=== PATIENT | female | born 1965 | race Caucasian/White ===

== ENCOUNTER → 2017-09-28 07:20 | Outpatient (CLI) | payer OTHER, SELFPAY ==
--- NOTE | 2017-09-28 07:26 | BI_ITS ---
MAMMOGRAPHY - BILATERAL SCREENING REASON FOR EXAM: Female, 52 years old. Routine annual screening examination. PERTINENT HISTORY: Aunt with breast cancer. Remote right stereotactic breast biopsy and excisional biopsy. TECHNIQUE: Digital bilateral breast mason (3D mammographic acquisition) in the CC and MLO projections. 2-D mediolateral oblique (MLO) and craniocaudad (CC) views of both breasts were obtained. CAD: Full Field Digital Mammography with Computer Added Detection was performed. COMPARISON: Comparison is made with prior study dated June 20, 2014 and November 28, 2011. FINDINGS: Breast Composition: There are scattered areas of fibroglandular density. There are no dominant masses or suspicious calcifications. No other significant abnormalities are identified. There has been no significant change since the prior study. BI/SCREENING MAMM (CAD), BILAT IMPRESSION: Stable bilateral screening mammogram. Yearly follow-up mammogram recommended. (A) ASSESSMENT CATEGORY: BIRADS Category 1: Negative. A letter regarding these results will be sent to the patient by the facility within 30 days. Approximately 10% of breast cancers are not detected by mammography. A normal mammogram should not delay biopsy of a clinically suspicious abnormality. [id number] Electronically Signed: Adeel Valdez MD at 9:10 EDT Tel [phone], Service support ,
== END ==
PROVIDERS: Family Provider Family Medicine; PCP Family Medicine; Visit Provider Obstetrics & Gynecology Gynecology
DX: Z12.31 Encounter for screening mammogram for malignant neoplasm of breast (principal)
CPT/HCPCS: 77063; 77067

== ENCOUNTER → 2017-12-07 06:56 | Outpatient (CLI) | payer OTHER, SELFPAY ==
--- NOTE | 2017-12-07 12:39 | PFTCOMP_ITS ---
COMPLETE PULMONARY FUNCTION TEST INTERPRETATION Brief HPI: Patient is a 52 year old female, currently under the care of myself, who presents to [facility] for complete pulmonary function tests secondary to diagnosis of asthma. Respiratory therapist reports good effort and reproducible results. Interpretation: Forced expiration spirometry shows no large airways obstructive ventilatory defect with an FEV1 of 111% predicted. There is no significant bronchodilator response by ATS criteria. Spirograms are of good quality and plateau slowly, indicating slowly emptying areas of the lungs. The respiratory flow volume loop shows a normal pattern. Lung volumes by body plethysmography show an elevated total lung capacity at 6.14 L, 130% predicted. All other lung volumes are increased symmetrically. Diffusion capacity by carbon monoxide is normal at 81% predicted. The airway resistance is normal. No previous pulmonary function tests were available for review. Impression: These pulmonary function tests are grossly within normal limits, but do show hyperinflation, which may be a physiologic variant.
== END ==
PROVIDERS: Family Provider Family Medicine; PCP Family Medicine; Visit Provider Internal Medicine Critical Care Medicine
DX: J45.40 Moderate persistent asthma, uncomplicated (principal)
CPT/HCPCS: 94060; 94726; 94729

== ENCOUNTER → 2018-05-03 08:20 | Outpatient (CLI) | payer OTHER, SELFPAY ==
[2018-05-02 15:02] VITALS: BMI 43.0
[2018-05-03 09:47] LABS: Absolute Neutrophil Count 3.2 X10^3/uL (2.0-7.7); Basophil# 0.09 X10^3/uL; Basophil% 1.6 % (0-1); Eosinophil# 0.25 X10^3/uL; Eosinophils% 4.6 % (0-5); Hematocrit 42.4 % (37-47); Hemoglobin 13.8 g/dl (12.0-15.0); Lymphocyte % 29.3 % (19-41); Mean Corp Hgb Conc 32.5 g/gl (32-36); Mean Corpuscular Hgb 29.2 pg (27.0-32.0); Mean Corpuscular Volume 89.8 fL (81-99); Monocyte# 0.34 X10^3/uL; Monocyte% 6.2 % (0-10); Neutrophil # 3.17 X10^3/uL (2.7-7.7); Neutrophil % 58.1 % (47-70); Platelet Count 333 K/mm3 (150-450); RBC Distribution Width CV 12.9 % (11.6-14.6); RBC Distribution Width SD 41.9 fl (35.1-43.9); Red Blood Count 4.72 M/mm3 (4.2-5.4); White Blood Count 5.5 K/mm3 (4.4-11.0)
[2018-05-03 09:56] LABS: POSITIVE COUNT NO; POSITIVE DIFFERENTIAL NO; POSITIVE MORPHOLOGY NO
[2018-05-03 10:22] LABS: Anion Gap 9 (5-15); BUN 16 mg/dL (7-18); Calcium,Total 8.8 mg/dL (8.5-10.1); Chloride 105 mmol/L (98-107); Cholesterol 214 mg/dL (200); Creatinine, Serum 0.89 mg/dL (0.55-1.02); EST Glomerular Filtration Rate 70 mL/min (>60); Est Glom Filt Rate - Afr Amer 85 mL/min (>60); Glucose 104 mg/dL (74-106); High Density Lipoprotein 41 mg/dL; Sodium Level 142 mmol/L (136-145); T4 Free Direct 1.02 ng/dL (0.76-1.46); Thyroid Stim Hormone (TSH) 1.87 uIU/mL (0.358-3.74); Triglycerides 168 mg/dL; Very Low Density Lipoprotein 34 mg/dL (5-40)
== END ==
PROVIDERS: Family Provider Internal Medicine; PCP Internal Medicine; Referring Provider Internal Medicine; Visit Provider Internal Medicine
DX: E03.9 Hypothyroidism, unspecified (principal); E78.5 Hyperlipidemia, unspecified
CPT/HCPCS: 36415; 80048; 80061; 84439; 84443; 85025

== ENCOUNTER → 2018-10-03 08:09 | Outpatient (CLI) | payer OTHER, SELFPAY ==
[2018-05-02 15:02] VITALS: BMI 43.0
--- NOTE | 2018-10-03 08:21 | RAD_ITS ---
STUDY: X-RAY CHEST REASON FOR EXAM: Female, 53 years old. Intermittent chest pain x2 weeks, asthma TECHNIQUE: PA and lateral views of the chest. COMPARISON: None. FINDINGS: The lungs are clear and expanded. There is no demonstrated pleural abnormality. Normal size heart. Normal mediastinum and cary. Normal visualized pulmonary arteries. There are calcified plaques of the aortic arch. There is a mild midthoracic dextroscoliosis. There is diffuse endplate spondylosis of the thoracic spine. Normal visualized ribs, clavicles, and shoulders. There is no demonstrated abnormality of the visualized soft tissue structures of the upper abdomen. RAD/Chest PA and Lateral IMPRESSION: Calcified plaques of the aortic arch. Mild thoracic dextroscoliosis. Mild diffuse endplate spondylosis of the thoracic spine. Electronically Signed: Best Harrington MD at 16:50 EDT , Service support ,
[2018-10-03 09:54] LABS: Absolute Lymphocyte Count 1.63 X10^3/ul (0.83-4.51); Absolute Neutrophil Count 2.7 X10^3/uL (2.0-7.7); Basophil# 0.05 X10^3/uL; Eosinophil# 0.21 X10^3/uL; Eosinophils% 4.3 % (0-5); Hematocrit 43.8 % (37-47); Hemoglobin 14.6 g/dl (12.0-15.0); Lymphocyte # 1.63 X10^3/ul (4.0); Mean Corp Hgb Conc 33.3 g/gl (32-36); Mean Corpuscular Hgb 28.9 pg (27.0-32.0); Mean Corpuscular Volume 86.7 fL (81-99); Mean Platelet Vol. 10.7 fl (6.2-12.0); Monocyte# 0.35 X10^3/uL; Monocyte% 7.1 % (0-10); Neutrophil # 2.69 X10^3/uL (2.7-7.7); Neutrophil % 54.4 % (47-70); Platelet Count 311 K/mm3 (150-450); RBC Distribution Width CV 12.9 % (11.6-14.6); RBC Distribution Width SD 40.3 fl (35.1-43.9); Red Blood Count 5.05 M/mm3 (4.2-5.4); White Blood Count 4.9 K/mm3 (4.4-11.0)
[2018-10-03 09:59] LABS: POSITIVE COUNT NO; POSITIVE DIFFERENTIAL NO; POSITIVE MORPHOLOGY NO
[2018-10-03 10:12] LABS: AST(SGOT) 26 U/L (15-37); Alanine Aminotransfer ALT/SGPT 52 U/L (13-56); Albumin, Serum 3.8 g/dL (3.2-5.0); Alkaline Phosphatase 49 U/L (45-117); Anion Gap 6 (5-15); BUN 12 mg/dL (7-18); BUN/Creat Ratio 12.3 RATIO (10-20); Chloride 104 mmol/L (98-107); Cholesterol 218 mg/dL (200); Creatinine, Serum 0.98 mg/dL (0.55-1.02); EST Glomerular Filtration Rate 63 mL/min (>60); Est Glom Filt Rate - Afr Amer 76 mL/min (>60); Globulin 3.5 g/dL (2.2-4.2); Glucose 107 mg/dL (74-106); High Density Lipoprotein 49 mg/dL; Potassium 3.9 mmol/L (3.5-5.1); Protein, Total 7.3 g/dL (6.4-8.2); Sodium Level 141 mmol/L (136-145); T4 Free Direct 0.95 ng/dL (0.76-1.46); Thyroid Stim Hormone (TSH) 2.91 uIU/mL (0.358-3.74); Triglycerides 173 mg/dL; Very Low Density Lipoprotein 35 mg/dL (5-40)
== END ==
PROVIDERS: Family Provider Internal Medicine; PCP Internal Medicine; Referring Provider Internal Medicine Cardiovascular Disease; Visit Provider Internal Medicine Cardiovascular Disease
DX: R07.9 Chest pain, unspecified (principal); R06.09 Other forms of dyspnea; E03.9 Hypothyroidism, unspecified
CPT/HCPCS: 36415; 71046; 80048; 80061; 80076; 84439; 84443; 84484; 85025

== ENCOUNTER → 2018-10-03 12:52 | Outpatient (CLI) | payer OTHER, SELFPAY ==
[2018-05-02 15:02] VITALS: BMI 43.0
--- NOTE | 2018-10-03 12:53 | ECHOD_ITS ---
Reason For Study: Chest Pain Procedure This was a 2D Doppler, Color Flow transthoracic echocardiogram. Exam performed in department. Left Ventricle Normal size and thickness. The estimated ejection fraction is 75 %. Normal diastology for age. No regional wall motion abnormalities noted. Right Ventricle Normal size and thickness. Normal systolic function. Atria Normal left atrium. Normal right atrium. Normal atrial septum. Mitral Valve The mitral valve is structurally normal. No prolapse or stenosis seen. Tricuspid Valve Normal tricuspid valve. Trivial tricuspid valve insufficiency. Right ventricular systolic pressure estimated to be 18 mmHg. Aortic Valve Normal aortic valve. Trisinus/trileaflet aortic valve. Pulmonic Valve Normal pulmonic valve. Trivial pulmonic valve insufficiency. Great Vessels Normal aortic root. Normal arch. Normal inferior vena cava. Inferior vena cava collapse with sniff. Pericardium/Pleural No pericardial effusion. MMode/2D Measurements & Calculations LVIDd: 3.9 cm IVSd: 0.98 cm Ao root diam: 2.7 cm LVIDs: 2.0 cm LVPWd: 1.0 cm RVDd: 3.0 cm FS: 49.0 % LAV(MOD-bp): 42.6 ml LVAd ap4: 27.0 cm2 SV(MOD-sp4): 53.5 ml LAV(MOD-bp) Indexed: 20.2 ml/m2 EDV(MOD-sp4): 77.2 ml LAV(MOD-sp2): 36.9 ml EDV(sp4-el): 80.4 ml LAV(MOD-sp4): 49.7 ml LVAs ap4: 13.0 cm2 ESV(MOD-sp4): 23.8 ml ESV(sp4-el): 23.1 ml EF(MOD-sp4): 69.2 % EF(sp4-el): 71.3 % SV(sp4-el): 57.3 ml LA A4 area: 18.2 cm2 LA dimension(2D): 3.8 cm RA A4 area: 9.8 cm2 Doppler Measurements & Calculations MV E max edison: 80.2 cm/sec Lat Peak E' Edison: 10.6 cm/sec Med Peak E' Edison: 9.6 cm/sec MV A max edison: 70.9 cm/sec E/E' lat: 7.6 E/E' med: 8.4 MV E/A: 1.1 Ao V2 max: 151.4 cm/sec LV V1 max: 138.4 cm/sec PA V2 max: 137.7 cm/sec Ao max P.2 mmHg LV V1 max P.7 mmHg Ao V2 mean: 107.2 cm/sec Ao mean P.0 mmHg Ao V2 VTI: 33.1 cm TR max edison: 179.2 cm/sec TR max P.8 mmHg Interpretation Summary The estimated ejection fraction is 75 %. Normal diastology for age. Trivial tricuspid valve insufficiency. Right ventricular systolic pressure estimated to be 18 mmHg. There is no comparison study available. Ordering Physician: Tyrell Beal Referring Physician: Parris Espino Performed By: Bere Weinberg, MOLINA, RVT
== END ==
PROVIDERS: Family Provider Internal Medicine; PCP Internal Medicine; Referring Provider Internal Medicine Cardiovascular Disease; Visit Provider Internal Medicine Cardiovascular Disease
DX: R07.9 Chest pain, unspecified (principal); R06.09 Other forms of dyspnea; R10.13 Epigastric pain; M54.9 Dorsalgia, unspecified
CPT/HCPCS: 93306

== ENCOUNTER → 2018-10-04 13:33 | Outpatient (CLI) | payer OTHER, SELFPAY ==
[2018-05-02 15:02] VITALS: BMI 43.0
--- NOTE | 2018-10-04 13:35 | STEWCON_ITS ---
Reason For Study: CHEST PAIN, CASTRO Stress Results Protocol: Stress Echocardiogram Maximum Predicted HR: 165 bpm Target HR: 140 bpm % Maximum Predicted HR: 91 % Heart Stage Duration Rate BP Comment (mm:ss) (bpm) BASELINE 61 118/744CC DILUTED DEFINITY USED LOGAN PROTOCOL- STAGE 1 3:00 102 124/80 LOGAN PROTOCOL- STAGE 2 3:00 127 132/84SL SOB LOGAN PROTOCOL- STAGE 3 2:00 150 / SOB CP 1-06/24 FOR SHORT TIME POST SRESS, LASTED APPROX. 7 MIN RECOVERY 80 118/74THEN SUBSIDED WITH SITTING UPRIGHT Stress Duration: 8:00 mm:ss Maximum Stress HR: 150 bpm Baseline Echocardiogram Findings The estimated ejection fraction is 65 %. Stress Echo Wall motion Data Resting WM Intermediate WM Stress WM Resting Wall Motion Wall Motion Stress No regional wall motion No regional wall motion abnormalities noted. abnormalities noted. EKG Data The baseline ECG displays normal sinus rhythm. The patient exercised according to the regular Logan protocol for a total duration of 8:00. The maximum heart rate attained was 150 beats per minute. This was 90% of maximum predicted heart rate. The patient exercised into stage 3 of the Logan protocol. During stress, there were no ST or T wave changes noted to suggest ischemia. No clinical angina was noted. Interpretation Summary The estimated ejection fraction is 65 %. Normal, adequate, treadmill echocardiogram. Negative for ischemia by EKG and echocardiographic criteria. No anginal symptoms noted. Rare PVCs noted. Appropriate blood pressure response to exercise. Average exercise capacity for age. Test terminated due to the attainment of target heart rate and dyspnea. Final LVEF is 75%. Decreased sensitivity due to poor echo windows requiring Definity enhancing agent. No complications. The study was technically difficult. Contrast injection was performed. Ordering Physician: Tyrell Beal Referring Physician: Tyrell Beal Performed By: Marjorie Baum, RDCS, RVT
== END ==
PROVIDERS: Family Provider Internal Medicine; PCP Internal Medicine; Referring Provider Internal Medicine Cardiovascular Disease; Visit Provider Internal Medicine Cardiovascular Disease
DX: R07.9 Chest pain, unspecified (principal); R06.09 Other forms of dyspnea; M54.9 Dorsalgia, unspecified; R10.13 Epigastric pain; G47.33 Obstructive sleep apnea (adult) (pediatric); E78.5 Hyperlipidemia, unspecified; J45.909 Unspecified asthma, uncomplicated
CPT/HCPCS: 93017; 93350; Q9957; A4216; C8928

== ENCOUNTER → 2018-10-05 07:53 | Outpatient (CLI) | payer OTHER, SELFPAY ==
[2018-05-02 15:02] VITALS: BMI 43.0
--- NOTE | 2018-10-05 07:55 | US_ITS ---
STUDY: ABDOMINAL ULTRASOUND - RIGHT UPPER QUADRANT REASON FOR VISIT: Female, 53 years old. 2 week history of epigastric pain. History of gastroesophageal reflux. TECHNIQUE: Ultrasound evaluation of the right upper quadrant was performed with real-time and static tran-scale imaging. TECHNICAL QUALITY: Adequate. COMPARISON: Comparison is made with prior examination dated April 29, 2015. FINDINGS: Liver: The liver is slightly enlarged and measures 19.1 cm. There is increased echogenicity consistent with fatty infiltration. The bile ducts are within normal limits. There is hepatic color flow. The direction of portal flow is hepatopetal. Once again, 2 cysts are seen in the right lobe of the liver. The larger measures 2.5 size by 2.4 cm x 1.6 cm. Gallbladder: Normal distended gallbladder. The gallbladder wall measures 2.8 mm. There is a negative sonographic Prince's sign. There is no pericholecystic fluid. There is a solitary echogenic gallstone within the gallbladder. This measures 1.6 cm x 1.9 cm. Common Bile Duct (C.B.D.): The common bile duct measures 4.8 mm. Pancreas: Normal size of the head, body and tail of the pancreas. There is increased echogenicity of the pancreas. There is no demonstrated pancreatic mass or cyst. Right Kidney: Normal size of the right kidney. The right kidney measures 11.0 cm x 5.1 cm x 5.6 cm. Normal renal cortex. The right cortex measures 1.8 cm. There is a 1.6 cm x 1.3 cm x 1.6 cm right renal cyst. There is no right hydronephrosis. US/Gallbladder IMPRESSION: Hepatomegaly and fatty infiltration of the liver. Hepatic cysts. Solitary gallstone. Electronically Signed: Adeel Valdez, at 14:53 EDT , Service support ,
== END ==
PROVIDERS: Family Provider Internal Medicine; PCP Internal Medicine; Referring Provider Internal Medicine Cardiovascular Disease; Visit Provider Internal Medicine Cardiovascular Disease
DX: K21.9 Gastro-esophageal reflux disease without esophagitis (principal); R10.13 Epigastric pain; M54.9 Dorsalgia, unspecified
CPT/HCPCS: 76705

== ENCOUNTER → 2018-10-17 07:25 | Outpatient (CLI) | payer OTHER, SELFPAY ==
[2018-10-04 15:43] VITALS: BMI 43.4
--- NOTE | 2018-10-17 07:26 | CT_ITS ---
HISTORY: EPIGASTRIC PAIN RADIATING THROUGH TO BACK--MASS VS HIATAL HERNIAINTERMITTENT RLQ PAINSURG RIGHT BREAST LUMPECTOMY-BENIGN,DTamp;C TECHNIQUE: Helically acquired images were obtained of the chest following the intravenous administration of 100CC ml of Isovue 300 Iodinated contrast. as per pulmonary angiogram protocol with 2D MIP reconstructions. A radiation dose optimization technique was used for this scan. COMPARISON: CT scan of the abdomen and pelvis performed the same time. FINDINGS: # of images incl. paperwork: 877 Lungs are clear pleural-parenchymal nodule on the major fissure on the right measures 11 x 5 mm. No effusions. Within the thoracic spinescoliosis and multilevel degenerative disc disease Vertebral body height is normal. Facets are well aligned. No rib lesions are perceived. Heart is not enlarged. Thoracic aorta elongated with atherosclerotic plaque. No aneurysms, stenoses, dissections, nor occlusions. No axillary or mediastinal adenopathy. No pulmonary emboli. Hepatic steatosis. Within the liver there are at least 4 hypodense lesions. Largest of these, within the lateral segment left hepatic lobe, anteriorly, within a subcapsular position, measures 17 mm, and has a central density of 9 Hounsfield units. These all likely represent benign cysts. Heterogeneous enhancement of the spleen is likely just due to the normal arterial phase of imaging. Visualized portions of the pancreas, and adrenal glands are normal. The stomach is decompressed. CT/Chest WITH Contrast IMPRESSION: No pulmonary embolism, aortic aneurysm, or aortic dissection. Hepatic steatosis Individualized dose optimization techniques were used for this CT. at 0895 Reported and signed by: Michele Love MD Electronically Signed: Michele Love MD at 22:44 EDT Tel , Service support ,
--- NOTE | 2018-10-17 07:26 | CT_ITS ---
HISTORY: EPIGASTRIC PAIN RADIATING THROUGH TO BACK--MASS VS HIATAL HERNIAINTERMITTENT RLQ PAINSURG RIGHT BREAST LUMPECTOMY-BENIGN,DTamp;C TECHNIQUE: Helically acquired images were obtained of the abdomen and pelvis following the intravenous administration of 100CC ml of Isovue 300 Iodinated contrast. 2D reformats. No oral contrast was administered. A radiation dose optimization technique was used for this scan. COMPARISON: None FINDINGS: # of images incl. paperwork: 455 LUNG BASES: Clear. CT abdomen: Degenerative disc disease at the L4-L5 and L5-S1 levels. Facet arthropathy at the lower lumbar spine. The gallbladder remains. Hepatic steatosis. There are 4 hypodense lesions throughout the liver. The largest of these is anteriorly within the lateral segment of the left hepatic lobe, within a subcapsular position. It measures 19 mm, has fairly well-defined margins which are somewhat lobular. It has a central density of 13 Hounsfield units. The spleen, pancreas, and adrenal glands, are normal. The kidneys are normal. The aorta is normal. CT pelvis: No ascites is present. The uterus and ovaries are not pathologically enlarged. The appendix is normal. Series 3 image 80. The bladder is is decompressed. Diverticulosis within the sigmoid colon without acute diverticulitis. CT/Abdomen/Pelvis WITH Contrast IMPRESSION: No acute disease perceived. Hepatic steatosis. 4 hypodense lesions within the liver, likely benign cysts. No hiatal hernia. No biliary ductal dilatation. No hydronephrosis. Degenerative disc disease and facet arthropathy within the lumbar spine Individualized dose optimization techniques were used for this CT. at 8155 Reported and signed by: Michele Love MD Electronically Signed: Michele Love MD at 23:14 EDT Tel , Service support ,
== END ==
PROVIDERS: Family Provider Internal Medicine; PCP Internal Medicine; Referring Provider Internal Medicine Cardiovascular Disease; Visit Provider Internal Medicine Cardiovascular Disease
DX: R07.9 Chest pain, unspecified (principal); M54.9 Dorsalgia, unspecified; R10.13 Epigastric pain; R10.31 Right lower quadrant pain
CPT/HCPCS: 71260; 74177; Q9967

== ENCOUNTER → 2019-02-14 07:17 | Outpatient (CLI) | payer OTHER, SELFPAY ==
[2019-01-19 14:39] VITALS: BMI 44.1
--- NOTE | 2019-02-14 07:19 | BI_ITS ---
MAMMOGRAPHY - BILATERAL SCREENING REASON FOR EXAM: Female, 53 years old. Routine annual screening examination. PERTINENT HISTORY: Aunt with breast cancer. Remote right Sterotactic and excisional breast biopsies. TECHNIQUE: Digital bilateral breast adrianne (3D mammographic acquisition) in the CC and MLO projections. 2-D mediolateral oblique (MLO) and craniocaudad (CC) views of both breasts were obtained. CAD: Full Field Digital Mammography with Computer Added Detection was performed. COMPARISON: Comparison is made with prior study dated September 28, 2017 at [facility] 2014. FINDINGS: Breast Composition: There are scattered areas of fibroglandular density. There are no dominant masses or suspicious calcifications. There is a 4 mm well-defined nodule in the upper lateral aspect of the right breast. This may represent either a small cyst or small lymph node. Correlation with ultrasound is recommended. No other significant abnormalities are identified. There has been no significant change since the prior study. BI/SCREEN MAMM (CAD) W/ADRIANNE BILAT IMPRESSION: 4 mm well-defined nodule in the upper lateral aspect of the right breast as described. Correlation with ultrasound is recommended. ASSESSMENT CATEGORY: BIRADS Category 0: Incomplete. Need additional imaging evaluation. A letter regarding these results will be sent to the patient by the facility within 30 days. Approximately 10% of breast cancers are not detected by mammography. A normal mammogram should not delay biopsy of a clinically suspicious abnormality. [id number] Electronically Signed: Adeel Valdez, at 9:17 EDT , Service support ,
== END ==
PROVIDERS: Family Provider Internal Medicine; PCP Internal Medicine; Referring Provider Obstetrics & Gynecology Gynecology; Visit Provider Obstetrics & Gynecology Gynecology
DX: Z12.31 Encounter for screening mammogram for malignant neoplasm of breast (principal); N63.10 Unspecified lump in the right breast, unspecified quadrant
CPT/HCPCS: 77063; 77067

== ENCOUNTER → 2019-02-18 07:49 | Outpatient (CLI) | payer OTHER, SELFPAY ==
[2019-01-19 14:39] VITALS: BMI 44.1
--- NOTE | 2019-02-18 07:52 | US_ITS ---
STUDY: ULTRASOUND BREAST - RIGHT REASON FOR EXAM: Female, 53 years old. Previous right breast were obtained on 02/14/2019 TECHNIQUE: Axial and longitudinal images of the RIGHT breast were performed with a high resolution ultrasound transducer. COMPARISON: None. FINDINGS: RIGHT Breast: There is a lesion in the superior medial quadrant. The lesion measures 5 cm in size. Clock notation: 9: o'clock position. Distance from nipple: 460 cm. Posterior Enhancement: Yes Posterior Shadowing: No Margins: Sharp Echogenicity: Decreased This lesion appears to have an internal septation through a cyst. US/Breast Limited Unilateral IMPRESSION: The questionable density in the lateral right breast most likely density small benign cyst ASSESSMENT CATEGORY: BIRADS: 2 Electronically Signed: Juan Stacie, at 15:53 EDT Tel , Service support ,
== END ==
PROVIDERS: Family Provider Internal Medicine; PCP Internal Medicine; Referring Provider Obstetrics & Gynecology Gynecology; Visit Provider Obstetrics & Gynecology Gynecology
DX: N63.10 Unspecified lump in the right breast, unspecified quadrant (principal)
CPT/HCPCS: 76642

== ENCOUNTER → 2019-04-19 16:11 | Outpatient (CLI) | payer OTHER, SELFPAY ==
[2019-04-19 09:04] VITALS: BMI 44.1
--- NOTE | 2019-04-19 16:13 | RAD_ITS ---
STUDY: X-RAY - PELVIS AND LEFT HIP REASON FOR EXAM: Female, 53 years old. Chronic left hip pain TECHNIQUE: 3 views of the pelvis and hip. COMPARISON: 03/24/17. FINDINGS: No acute fracture, dislocation or osseous destruction. Moderate bilateral left greater than right hip joint space narrowing. No significant productive changes. No significant soft tissue swelling. IMPRESSION: No acute fracture or dislocation. Moderate bilateral hip arthrosis left slightly greater than right. Electronically Signed: Tobin Cartagena, at 17:45 EST Tel , Service support , RAD/Hip uni 4+ views with Pelvis
== END ==
PROVIDERS: Family Provider Internal Medicine; PCP Internal Medicine; Referring Provider Nurse Practitioner Family; Visit Provider Nurse Practitioner Family
DX: M16.0 Bilateral primary osteoarthritis of hip (principal); G89.29 Other chronic pain
CPT/HCPCS: 73503

== ENCOUNTER → 2019-07-31 14:09 | Outpatient (CLI) | payer OTHER, SELFPAY ==
[2019-07-31 13:32] VITALS: BMI 44.6
--- NOTE | 2019-07-31 14:12 | RAD_ITS ---
STUDY: X-RAY - LUMBAR SPINE REASON FOR EXAM: Female, 53 years old. BACK PAIN TECHNIQUE: 3 view(s) of the lumbar spine were obtained. COMPARISON: None FINDINGS: Normal lumbar lordosis. There is no substantial scoliosis. There is a normal alignment of the vertebrae. Normal vertebral bodies and endplates. Moderate degree of disc space narrowing at the L4-L5 level as well as a marked degree of disc space narrowing and disc degeneration at the L5-S1 level. Facet joint osteoarthritis. The soft tissue structures are unremarkable. RAD/Lumbar Spine 2 or 3 Views IMPRESSION: Degenerative changes of the spine, as detailed above. Electronically Signed: Adeel Valdez, at 15:03 EDT , Service support ,
== END ==
PROVIDERS: PCP Internal Medicine; Referring Provider Internal Medicine; Visit Provider Internal Medicine
DX: M54.9 Dorsalgia, unspecified (principal)
CPT/HCPCS: 72100

== ENCOUNTER → 2019-10-30 15:40 | Outpatient (CLI) | payer OTHER, SELFPAY ==
[2019-10-30 15:11] VITALS: BMI 44.1
[2019-10-30 16:55] LABS: Absolute Neutrophil Count 3.9 X10^3/uL (2.0-7.7); Basophil# 0.06 X10^3/uL; Eosinophil# 0.27 X10^3/uL; Eosinophils% 4.4 % (0-5); Hematocrit 41.2 % (37-47); Hemoglobin 13.2 g/dL (12.0-15.0); Lymphocyte % 25.8 % (19-41); Mean Corpuscular Hgb 28.9 pg (27.0-32.0); Mean Corpuscular Volume 90.2 fL (81-99); Mean Platelet Vol. 10.4 fl (6.2-12.0); Monocyte# 0.38 X10^3/uL; Monocyte% 6.1 % (0-10); NRBC Flagged by Analyzer 0 % (0-5); Neutrophil # 3.87 X10^3/uL (2.7-7.7); Neutrophil % 62.4 % (47-70); Platelet Count 304 K/mm3 (150-450); RBC Distribution Width CV 12.5 % (11.6-14.6); RBC Distribution Width SD 41.1 fl (35.1-43.9); Red Blood Count 4.57 M/mm3 (4.2-5.4); White Blood Count 6.2 K/mm3 (4.4-11.0)
[2019-10-30 17:14] LABS: ALB/GLOB Ratio 1.1 RATIO (0.9-2.4); AST(SGOT) 16 U/L (15-37); Alanine Aminotransfer ALT/SGPT 31 U/L (13-56); Albumin, Serum 3.8 g/dL (3.2-5.0); Alkaline Phosphatase 53 U/L (45-117); Anion Gap 8 (5-15); BUN 17 mg/dL (7-18); BUN/Creat Ratio 20.6 RATIO (10-20); Chloride 103 mmol/L (98-107); Cholesterol 153 mg/dL (200); Creatinine, Serum 0.82 mg/dL (0.55-1.02); EST Glomerular Filtration Rate 76 mL/min (>60); Est Glom Filt Rate - Afr Amer 92 mL/min (>60); Globulin 3.6 g/dL (2.2-4.2); Glucose 109 mg/dL (74-106); High Density Lipoprotein 47 mg/dL; Protein, Total 7.4 g/dL (6.4-8.2); Sodium Level 140 mmol/L (136-145); Thyroid Stim Hormone (TSH) 2.11 uIU/mL (0.358-3.74); Triglycerides 165 mg/dL; Very Low Density Lipoprotein 33 mg/dL (5-40)
== END ==
PROVIDERS: PCP Internal Medicine; Referring Provider Internal Medicine; Visit Provider Internal Medicine
DX: J45.909 Unspecified asthma, uncomplicated (principal); E03.9 Hypothyroidism, unspecified; E78.5 Hyperlipidemia, unspecified
CPT/HCPCS: 36415; 80053; 80061; 84443; 85025

== ENCOUNTER 2020-01-08 09:00 | Outpatient (RCR) | payer OTHER, SELFPAY ==
[2019-11-11 07:56] VITALS: BMI 44.1
--- NOTE | 2019-12-05 08:22 | HP.PTEVAL ---
Patient's Visit Information IRIS EDWARDS is a 54 year old F referred to Physical Therapy by Dr. Danilo Platt DO with a diagnosis of Low Back Pain. Date of Evaluation: 12/05/19 Physical Therapist: Christiana San DPT - Visit Plan Frequency: 2x /Week Duration: 4 Weeks Plan: Aquatics- focus on core stregth/stabilization and diminishing dural s/s - Subjective Patient reports that left hip pain started last fall- and now she can't walk- had bursitits and had in injection and that is better- now she has pain in the left buttocks that radiates down the left leg to the ankle. Has a hard time walking- more DDD in her spine vs hip OA. Back pain is new- she use to be very active but is not able to do that anymore. Pain is located along the belt line in the middle then radites to the foot. Reports spasms and its hard to step onto the left leg. Sleep: disturbed- is now sleeping on her back with a pillow under her knees. Worst: 12/22 Agg: driving, sitting Eases: moving around and Meloxicam, Tylenol migraine (stacked). Best: 05/24. Work: sitting nurse phone. Slight N/T in the left leg which is just starting. No loss or change in bowel or bladder. X-rays which showed DDD in the spine but no MRI. Feels the leg and back pain is getting worse. No trauma to report. PMHX/Meds: no changes since Dr. Guajardo's office. Had her last injection in her hip 4-5 weeks ago. - Objective Posture: FH, RS, increased kyphosis- can not correct with verbal or visual cues. Gait: antalgic- decreased stance on the left LE with hip drop bilaterally- vaulting over the left LE. HR/TR: able with UE A. SLS: right: 15 sec with UE a from wall- unable to SLS only weight shift on the left and reports significant weakness and pain. Sensation: WNl to gross touch bilaterally. Reflex: patellar: diminished bilaterally. ROM: Lumbar: hands to ankle reports feels good to stretch Extn: neutral and all motion from upper lumbar, Rotation: diminished by 50% bilateral rotation left increases pain more than right. SB: diminished by 25% pain when SB left. Right LE: WNL Left: IR/ER: diminished by 50% with pain. ankle/knee: WNL. Strength: Core: poor, Hip: Left: 4-/5 throughout Right: 4/5 throughout Knee: 5/5 bilaterally ankle: 5/5 bilaterally. Special Test: Dural signs: positive on the left, JONAH: positive on the right, Scour: positive on the right, Extn vs Flexion Bias: negative. Palpation: tender along paraspinals in the lumber, into the left gluts, greater troch - Goals Goal 1:: Patient will be I with HEP and progression Goal Time Frame: 4-6 Weeks Goal 2:: Patient will ambulate >300 feet with a normalized gait pattern Goal Time Frame: 4-6 Weeks Goal 3:: Patient will SLS for 15 sec on the left LE with UE A Goal Time Frame: 4-6 Weeks Goal 4:: Patient will report no s/s down her left Le Goal Time Frame: 4-6 Weeks - Rehabilitation Potential Physical Therapy Diagnosis: Patient presents with hypomobility- she has decreased ROM,strength, flex and muscular endurance leading to poor posture and increased radiating pain. Rehabilitation Potential: Fair - Anticipated Interventions Patient/Client Instruction: Educate patient on: Benefits of Fitness Program Therapeutic Exercise to Include: Strength training, Endurance training, Balance training, Body mechanics, Postural training, Flexibilty training, Gait and locomotor training, Neuromotor development, In an aquatic setting, Dynamic Lumbar Stabilization, Scapular Strength/Stabilization For the Purpose of:: To improve muscle performance and motor function Thank you for the opportunity to evaluate your patient. For Medicare and Medicare HMO plans, please review the plan of care and approve it. It will need to be FAXED BACK to us at [phone] for Medicare purposes. For Medicare only, by signing this I certify the plan of care. Please let me know if there are questions or concerns regarding this plan of care. Physician Signature: Date:
--- NOTE | 2020-01-08 09:28 | HP.PTDCSUM ---
It has been my pleasure to treat IRIS EDWARDS referred by Dr. Danilo Platt DO, with the diagnosis of Low Back Pain for a total of 8 visit(s). Discharge Date: 01/08/20 Please see the following information for a summary of their discharge status. Subjective: Went well in water. I do feel better.Has to be careful with what she does. Will keep core strong wtih HEP. Bands and core work will get done every otherday. No f/u with Dr. Kuhn. Had shot in bursa. Would like to manage this at home now. LLE Pain Intensity (Out of 10): 1 Lumbar Spine Pain Intensity (Out of 10): 1 % Improvement: 85 Objective/Function: Wallks with wide DAVIE and much increased hip pain if we decrease DAVIE. Steps with R only due to pain. + JONAH and FADDIR L hip. LB AROM WFL but ext gives tightness anterior L hip Goal 1:: Patient will be I with HEP and progression Goal Progress: Goal Met Goal 2:: Patient will ambulate >300 feet with a normalized gait pattern Goal Progress: Progressing Goal 3:: Patient will SLS for 15 sec on the left LE with UE A Goal Progress: 4 seconds Goal 4:: Patient will report no s/s down her left Le Goal Progress: Goal Met Plan: d/c to HEP, pt choice. If there are questions or concerns regarding this patient's physical therapy, please feel free to call me at [phone]. Thank you for the referral of this patient. Sincerely, Jhon Owen, DPT, OCS, CSCS
== END 2020-01-08 19:00 | disposition home or self-care (01) ==
LOC: PT 09:00
PROVIDERS: PCP Internal Medicine; Referring Provider Orthopaedic Surgery; Visit Provider Orthopaedic Surgery
DX: M47.816 Spondylosis without myelopathy or radiculopathy, lumbar region (principal); M51.36 Other intervertebral disc degeneration, lumbar region; M70.62 Trochanteric bursitis, left hip; Y93.9 Activity, unspecified
CPT/HCPCS: 97110; 97113; 97162; 97164

== ENCOUNTER → 2020-03-12 14:27 | Outpatient (CLI) | payer OTHER, SELFPAY ==
[2020-03-11 17:08] VITALS: BMI 45.1
[2020-03-12 15:15] LABS: Erythrocyte Sedimentation Rate 8 mm/hr (0-30)
[2020-03-12 15:25] LABS: CRP < 2.90 mg/L (0.0-3.0); Rheumatoid Factor < 10.0 IU/mL (<15)
[2020-03-16 17:44] LABS: ANTINUCLEAR ANTIBODIES DIRECT Negative (Negative)
== END ==
PROVIDERS: PCP Internal Medicine; Referring Provider Nurse Practitioner Family; Visit Provider Nurse Practitioner Family
DX: M25.50 Pain in unspecified joint (principal)
CPT/HCPCS: 36415; 85652; 86038; 86140; 86225; 86235; 86431

== ENCOUNTER → 2020-03-18 16:19 | Outpatient (CLI) | payer OTHER, SELFPAY ==
[2020-03-11 17:08] VITALS: BMI 45.1
--- NOTE | 2020-03-18 16:20 | MRI_ITS ---
STUDY: MRI LUMBAR SPINE WITHOUT CONTRAST REASON FOR EXAM: Female, 54 years old. ddd, low back pain into L hip x 1 yr, no known injury TECHNIQUE: Standardized fat and water weighted pulse sequences were obtained in the sagittal and axial planes. COMPARISON: None FINDINGS: T12-L1: Normal endplates. Normal disc height, hydration and morphology. Normal bilateral facet joints. Normal central canal and bilateral lateral recesses. Normal bilateral intervertebral neural foramina. Normal lumbar lordosis. There is no substantial scoliosis. Normal conus medullaris that terminates at T12-L1 L1-2: Normal endplates. Normal disc height, hydration and morphology. Normal bilateral facet joints. Normal central canal and bilateral lateral recesses. Normal bilateral intervertebral neural foramina. L2-3: Normal endplates. Normal disc height, hydration and morphology. Normal bilateral facet joints. Normal central canal and bilateral lateral recesses. Normal bilateral intervertebral neural foramina. L3-4: Normal endplates. Normal disc height, desiccation and small left foraminal disc protrusion.. Normal bilateral facet joints. Normal central canal and bilateral lateral recesses. Mild left neuroforaminal encroachment.. L4-5: Normal endplates. Normal disc height, desiccation and normal morphology. Mild facet arthropathy and thickening of ligamenta flava.. Normal central canal and bilateral lateral recesses. Mild bilateral neuroforaminal encroachment.. L5-S1: Normal endplates. Normal disc height, desiccation and mild annular bulge.. Facet arthropathy and thickening of ligamenta flava.. Normal central canal and bilateral lateral recesses. Moderate bilateral neuroforaminal stenosis. Normal visualized sacral ala. Normal visualized paraspinous soft tissue structures. MRI/Spine Lumbar (Routine) IMPRESSION: No acute fracture or other significant bony pathology. Mild left neuroforaminal stenosis at L3-4 secondary to small left foraminal disc Spinal stenosis at L4-5 and more pronounced at L5-S1 secondary to mild annular bulge facet arthropathy and thickening of ligamenta flava protrusion. Electronically Signed: Juan Akers MD at 17:58 EST , Service support ,
== END ==
PROVIDERS: PCP Internal Medicine; Referring Provider Nurse Practitioner Family; Visit Provider Nurse Practitioner Family
DX: M51.36 Other intervertebral disc degeneration, lumbar region (principal); M47.26 Other spondylosis with radiculopathy, lumbar region; M48.07 Spinal stenosis, lumbosacral region; G89.29 Other chronic pain
CPT/HCPCS: 72148

== ENCOUNTER → 2020-06-12 08:18 | Outpatient (CLI) | payer OTHER, SELFPAY ==
[2020-05-22 11:09] VITALS: BMI 42.5
[2020-06-04 16:47] VITALS: BMI 44.1
--- NOTE | 2020-06-12 08:20 | BI_ITS ---
MAMMOGRAPHY - BILATERAL SCREENING REASON FOR EXAM: Female, 54 years old. Routine annual screening examination. PERTINENT HISTORY: Non-contributory. TECHNIQUE: Digital bilateral breast adrianne (3D mammographic acquisition) in the CC and MLO projections. 2-D mediolateral oblique (MLO) and craniocaudad (CC) views of both breasts were obtained. CAD: Full Field Digital Mammography with Computer Added Detection was performed. COMPARISON: Comparison is made with prior study 02/14/2019 and 09/28/2017. FINDINGS: Breast Composition: There are scattered areas of fibroglandular density. There are no dominant masses or suspicious calcifications. This is 6.1 mm well-defined nodule in the upper lateral aspect of the right breast. This has increased slightly in size as compared to prior study. A repeat sonogram is recommended for further evaluation. No other significant abnormalities are identified. BI/SCRN MAMM (CAD)W/ADRIANNE BILAT IMPRESSION: Slight increase in size of the previously seen nodule in the upper lateral aspect of the right breast as described. Correlation with ultrasound is recommended. ASSESSMENT CATEGORY: BIRADS Category 0: Incomplete. Need additional imaging evaluation. A letter regarding these results will be sent to the patient by the facility within 30 days. Approximately 10% of breast cancers are not detected by mammography. A normal mammogram should not delay biopsy of a clinically suspicious abnormality. [id number] Electronically Signed: Adeel Valdez MD at 9:01 EST , Service support ,
== END ==
PROVIDERS: PCP Internal Medicine; Referring Provider Obstetrics & Gynecology Gynecology; Visit Provider Obstetrics & Gynecology Gynecology
DX: Z12.31 Encounter for screening mammogram for malignant neoplasm of breast (principal); N63.10 Unspecified lump in the right breast, unspecified quadrant
CPT/HCPCS: 77063; 77067

== ENCOUNTER → 2020-06-16 08:05 | Outpatient (CLI) | payer OTHER, SELFPAY ==
[2020-06-04 16:47] VITALS: BMI 44.1
--- NOTE | 2020-06-16 08:07 | US_ITS ---
STUDY: ULTRASOUND BREAST - RIGHT REASON FOR EXAM: Female, 54 years old. Abnormal screening mammogram. TECHNIQUE: Axial and longitudinal images of the RIGHT breast were performed with a high resolution ultrasound transducer. # OF IMAGES: 29 COMPARISON: Comparison is made with prior mammogram dated 06/12/2020. Comparison is also made with prior sonogram of the right breast dated 02/18/2019. FINDINGS: RIGHT Breast: There is a 6 mm x 6 mm x 4 mm cyst with septation at the 9 o''clock position of the breast at 4 cm from the nipple. This is unchanged. US/Breast Limited Unilateral IMPRESSION: Stable cyst with septation at the 9 o''clock position breast 4 cm from the nipple. ASSESSMENT CATEGORY: BIRADS Category 2: Benign. A letter regarding these results will be sent to the patient by the facility within 30 days. Electronically Signed: Adeel Valdez MD at 8:53 EST , Service support ,
== END ==
PROVIDERS: PCP Internal Medicine; Referring Provider Obstetrics & Gynecology Gynecology; Visit Provider Obstetrics & Gynecology Gynecology
DX: N60.01 Solitary cyst of right breast (principal)
CPT/HCPCS: 76642

== ENCOUNTER → 2020-11-05 13:29 | Outpatient (CLI) | payer OTHER, SELFPAY ==
[2020-10-26 10:49] VITALS: BMI 41.3
--- NOTE | 2020-11-05 13:35 | CT_ITS ---
STUDY: CT LEFTLOWER EXTREMITY WITHOUT CONTRAST REASON FOR EXAM: Female, [address] templating for left MARY RADIATION DOSAGE (If Supplied By Facility): CTDIvol = ( 14.07 ) mGy, DLP = ( 814.28 ) mGycm TECHNIQUE: Thin section transaxial imaging of the ankle was obtained, with sagittal and coronal reconstructed images. Individualized dose optimization techniques were used for this CT. COMPARISON: None. Hip findings: Severe narrowing of the right hip with bone on bone contact and moderate size subchondral cystic changes in addition to cortical osteophyte spurring and reactive sclerosis. A small loose body is seen at the medial inferior aspect of the left hip joint. The right hip joint is normal. Normal superior and inferior pubic rami. Normal pubic symphysis. Normal ischial tuberosity. Normal origin of the hamstring tendons. Normal visualized iliac wing, sacroiliac joint, and sacral ala. Diffuse colonic diverticulosis noted. The remaining internal structures are unremarkable. Knee findings: Mild to moderate narrowing is seen in the medial compartments in both knees. Normal proximal tibiofibular articulation. No fracture is seen. No osteochondral defect is seen. The quadriceps and patellar tendons are grossly intact. Normal patellofemoral articulations. No significant joint effusion is visualized. The soft tissues are unremarkable. CT/Extremity Lower without Contra IMPRESSION: 1. Severe DJD of the left hip Electronically Signed: Homero Jolley MD at 23:56 EDT , Service support ,
== END ==
PROVIDERS: PCP Internal Medicine; Referring Provider Orthopaedic Surgery; Visit Provider Orthopaedic Surgery
DX: M16.12 Unilateral primary osteoarthritis, left hip (principal)
CPT/HCPCS: 73700

== ENCOUNTER 2020-12-08 12:23 | Observation (INO) | payer OTHER, SELFPAY ==
[2020-10-26 10:49] VITALS: BMI 41.3
[2020-11-26 08:54] LABS: Absolute Lymphocyte Count 1.55 X10^3/uL (0.83-4.51); Basophil# 0.07 X10^3/uL; Basophil% 1.1 % (0-1); Eosinophil# 0.39 X10^3/uL; Hematocrit 41.3 % (37-47); Hemoglobin 13.2 g/dL (12.0-15.0); Lymphocyte # 1.55 X10^3/ul (0.83-4.51); Mean Corpuscular Hgb 29.1 pg (27.0-32.0); Mean Platelet Vol. 9.7 fl (6.2-12.0); Monocyte% 6.2 % (0-10); NRBC Flagged by Analyzer 0 % (0-5); Neutrophil # 4.04 X10^3/uL (2.7-7.7); Neutrophil % 62.4 % (47-70); Platelet Count 307 K/mm3 (150-450); RBC Distribution Width CV 12.8 % (11.6-14.6); Red Blood Count 4.54 M/mm3 (4.2-5.4); White Blood Count 6.5 K/mm3 (4.4-11.0)
[2020-11-26 09:13] LABS: Prothrombin Time (Protime)PT. 12.7 SECONDS (11.7-14.9)
[2020-11-26 09:14] LABS: Partial Thromboplast Time 29.5 Seconds (24.1-36.2)
[2020-11-26 09:38] LABS: Anion Gap 8 (5-15); BUN 19 mg/dL (7-18); BUN/Creat Ratio 19.1 RATIO (10-20); Calcium,Total 9.6 mg/dL (8.5-10.1); Chloride 102 mmol/L (98-107); Creatinine, Serum 0.99 mg/dL (0.55-1.02); EST Glomerular Filtration Rate 61 mL/min (>60); Est Glom Filt Rate - Afr Amer 74 mL/min (>60); Glucose 85 mg/dL (74-106); Magnesium 2.2 mg/dL (1.6-2.6); Potassium 4.1 mmol/L (3.5-5.1); Sodium Level 139 mmol/L (136-145)
[2020-11-26 09:46] LABS: ALB/GLOB Ratio 1.1 RATIO (0.9-2.4); AST(SGOT) 15 U/L (15-37); Alanine Aminotransfer ALT/SGPT 24 U/L (13-56); Albumin, Serum 3.8 g/dL (3.2-5.0); Alkaline Phosphatase 57 U/L (45-117); Anion Gap 7 (5-15); BUN 19 mg/dL (7-18); BUN/Creat Ratio 19.3 RATIO (10-20); Calcium,Total 8.9 mg/dL (8.5-10.1); Chloride 102 mmol/L (98-107); Cholesterol 142 mg/dL (200); Creatinine, Serum 0.98 mg/dL (0.55-1.02); EST Glomerular Filtration Rate 62 mL/min (>60); Est Glom Filt Rate - Afr Amer 75 mL/min (>60); Globulin 3.4 g/dL (2.2-4.2); Glucose 86 mg/dL (74-106); High Density Lipoprotein 50 mg/dL; Potassium 4.1 mmol/L (3.5-5.1); Protein, Total 7.2 g/dL (6.4-8.2); Sodium Level 139 mmol/L (136-145); Triglycerides 160 mg/dL; Very Low Density Lipoprotein 32 mg/dL (5-40)
[2020-11-27 08:13] LABS: Fructosamine 206 umol/L (0-285)
[2020-12-03 16:34] VITALS: BMI 42.5
[2020-12-08] VITALS (15 sets, daily range): BP systolic 76–133; BP diastolic 44–80; PULSE 51–70; RESP 16–18; TEMP 36.1–37.1; O2SAT 93–100; BMI 42.3
[2020-12-08] MEDS: Lactated Ringers 1,000 ML 100 ML IV (06:43)
[2020-12-08] MEDS: Celecoxib 200 MG Capsule 400 MG PO (06:43)
[2020-12-08] MEDS: Gabapentin 600 MG Tablet PO (06:44)
[2020-12-08] MEDS: Scopolamine 1mg/72hr Patch 1 PATCH TD (06:44)
[2020-12-08] MEDS: Lactated Ringers 1,000 ML 999 ML IV (06:44)
[2020-12-08] MEDS: Acetaminophen 500 MG Tablet 1000 MG PO ×3 (06:45→21:42)
--- NOTE | 2020-12-08 07:15 | PCM.HP.BLA ---
History and Physical Date of Admission: 12/08/20 Date of Service: 10/26/20 MR#:[id number]:[id number]: TANISHA BENTON [facility] #:[id number]:[id number] Provider:Dr. Danilo Platt DOAge/Sex: 55/F Location:[facility]:Signed Intake Vital Signs 10/26/20 10:49 Height 5 ft 3 in Weight: 233 lb BMI 41.3 Intake Visit Reasons: FOLLOW UP Chief Complaint: Acute on chronic left hip pain Allergies sulfamethoxazole [From Bactrim] Allergy (Severe, Verified 09/01/20 09:17) Hives trimethoprim [From Bactrim] Allergy (Severe, Verified 09/01/20 09:17) Hives [facility] Medical History (Updated 09/02/20 @ 13:24 by Tanisha Benton) Anxiety and depression Arthritis of left hip Asthma Chest pain Diverticulosis Dyspnea on exertion Epigastric pain GERD (gastroesophageal reflux disease) Hay fever Hyperlipidemia Hypothyroidism Mid back pain Obstructive sleep apnea Surgical History History of ankle surgery (~2012) History of colonoscopy (~2013) History of D&C (~1994) History of lumpectomy Family History Father Diabetes Hypertension Hyperlipidemia Glaucoma Mother Diabetes Hyperlipidemia PVC's (premature ventricular contractions) Bilateral osteoarthritis resulting from hip dysplasia Thyroid disorder Brother TIA (transient ischemic attack) After hiking and dehydration. No cerebrovascular disease Brother Hypertension Anxiety and depression Aunt Breast cancer Grandmother CVA (cerebral vascular accident) Cancer melanoma ovarian cancer Social History (Updated 09/07/20 @ 13:[address] Danilo Platt DO) household members: spouse housing: house alcohol intake: current alcohol intake frequency: holidays/special occasions only Alcohol type: wine substance use type: does not use what type of physical activity do you participate in: walking seatbelt use: always do you feel safe at home: Yes HPI FOLLOW UP Details: Parts of this documentation were recorded by a scribe, this documentation accurately reflects the service provided and the decisions made by me, Dr. Danilo Platt DO 10/26/20 0752. TANISHA BENTON is a 55 year old F here today for follow up of left hip osteoarthritis and to sign surgical consent. To recall her most recent left hip injection was on 08/13/[address] Thomas and she was educated that since she had that injection we could not operate for the next 3 months due to increased risk of infection. Today she is still having groin pain that is circumferential around the left hip. Today her pain in the office is a 7/10. She is taking meloxicam and extra strength Tylenol, which helps. She is still continuing to work on weight loss. Concerned about mobility after surgery, might have to go to some type of rehab facility/TCU. She takes a baby aspirin everyday ROS Const Denies chills and Denies fever(s) Card Denies dyspnea Resp Denies dyspnea GI Denies nausea and Denies vomiting Musc Reports abnormal gait, Reports arthralgias, Reports back pain, Reports limited range of motion, Reports radiating pain into limb and Reports stiffness Skin/Breast Denies rash Neuro Yes abnormal gait Ortho Exam General General: Yes no acute distress Neurologic: Yes alert and Yes oriented x3 Psychologic: Yes reasonable and appropriate Left Hip Skin/Wound: No Ecchymosis and No Erythema Hip: Present tender to palpate -; Absent eccymosis or erythema Homans Sign: No HIP: 15 degrees internal rotation, 20 degrees external with lateral hip pain with resisted abduction, 1/4 pedal pulses, neurovascularly intact, no hip, knee, or ankle weakness. Able to plantar flex and dorsiflex. Supplemental Info 09/01/20 xray left hip: Severe left hip degenerative change 04/19/2019 x-ray left hip: Mild spurring of the acetabulum mild joint space narrowing 07/31/2019 x-ray lumbar spine:Moderate disc space narrowing and spondylosis of L4-L5And L5-S1 with facet arthrosis Coding Level of Care Code Off vis,est,level 3 Diagnoses Primary osteoarthritis of left hip M16.12 Adult BMI 40.0-44.9 kg/sq m Z68.41 Lumbar spondylosis M47.816 Lumbar degenerative disc disease M51.36 Lumbar radiculitis M54.16 Morbid obesity due to excess calories E66.01 Arthritis of left hip M16.12 Assessment and Plan Assessment and Plan (1) Primary osteoarthritis of left hip: (2) Adult BMI 40.0-44.9 kg/sq m: Plan - Dr. Danilo Platt, DO: Discussed that she is still having continued pains and she would like to proceed with a left hip total arthroplasty. Will need to get a CT scan preop. Will need medical clearance from PCP, Dr. Espino. Patient states that she will fax FMLA into the office. She will continue to lose weight. Educated to stop meloxicam and baby aspirin 7 days prior to surgery and 2 weeks after while she is on a blood thinner. She will be on hip precautions post op. Discussed that PT will be started right away and she will need to be cleared on stairs due to where her bathroom is in her house. She will be evaluated after surgery to see is she can go home same day or if she needs to stay overnight. Risks, benefits and alternatives of surgery reviewed including but not limited to bleeding, infection, nerve, artery and/or tissue damage, fracture, VTE, leg length discrepancy, dislocation, need for hip precautions, continued pain due to her known back problems. Discussed the expected preop, intraop and postop course. She will be tentatively scheduled for 12/01/20. She will continue with her weight loss. She will follow up post op as needed or sooner if pain, swelling, numbness or associated symptoms, or concerns develop. All questions answered. Patient in agreement of plan. (3) Lumbar spondylosis: (4) Lumbar degenerative disc disease: (5) Lumbar radiculitis: (6) Morbid obesity due to excess calories: Status: Chronic (7) Arthritis of left hip: Status: Chronic 10/26/20 1140<Electronically signed by Danilo Platt DO>Date Danilo Platt DO 10/26/20 1217<Electronically signed by Melba PASTRANA>Cosigner Signature:Date (if applicable)Melba Caro I have re-examined the patient. There are no clinical changes since date of exam
--- NOTE | 2020-12-08 07:30 | FEM_PTH ---
PATIENT: IRIS BENTON LOC: [facility] U#:[id number] AGE/SX: 55/F ROOM: ME315 RE12/08/[address]: Dr. Danilo Platt DO : 1965 BED: 1 DIS: 12/09/2020 SPEC #: [id number] RECD: 12/08/20 11:06 STATUS: MARCK MCBRIDE #: [id number] DRE: 12/08/20 07:[address]: Danlio Platt DEPT: SURGICAL PATHOLOGY RECD BY: Regine Broderick ENTERED: 12/08/20 11:40 SP TYPE: FEM HEAD OTHR DR: Dr. Parris Espino MD Tissues: Femoral region, NOS Procedures: Decalcification bone/plaque Surgery Specimen Level V HEADER OPERATION: Total hip replacement robotic arm assist PRE-OP DIAGNOSIS: Primary osteoarthritis of left hip TISSUE SUBMITTED: Left hip bone and soft tissue MICROSCOPIC DIAGNOSIS Left hip bone and soft tissue, total hip replacement/resection: Femoral head with degenerative osteoarthritic changes. A fragment of bone and cartilage, loose body. YURIDIA:edi 12/11/2020 MICROSCOPIC DESCRIPTION Slides are reviewed. GROSS DESCRIPTION Received is one container labeled with the patient's name and designated left hip bone and soft tissue. The specimen consists of a deformed femoral head measuring 4.5 x 4.5 x 3.5 cm. The portion of femoral neck measures 0.5 cm in length. Also present in the container are detached pieces of bone measuring in aggregate 3.5 x 2.5 x 1 cm. Also present in the container is a piece of bone consistent with loose body measuring 1.5 x 1 x 0.5 cm. The articular surface displays prominent osteophyte formation, eburnation and bone erosion. Bag Bleacher sections are submitted in two cassettes after decalcification as follows: 1 ? loose body and detached pieces of bone, 2 ? femoral head. / YURIDIA:edi 12/08/20 TC:5 CPT: 81469, 66659
[2020-12-08] MEDS: Cefazolin 2 GM in 0.9% Normal Saline 100 ML IV (07:45)
[2020-12-08] MEDS: dexAMETHasone 10 MG/ML Vial IV (07:55)
[2020-12-08 08:06] LABS: Bedside Glucose 90 mg/dL (70-110)
--- NOTE | 2020-12-08 10:15 | RAD_ITS ---
STUDY: X-RAY - PELVIS AND LEFT HIP REASON FOR EXAM: Postoperative evaluation of left hip arthroplasty. TECHNIQUE: 2 views of the pelvis and hip. COMPARISON: Radiographs 09/01/2020. FINDINGS: There is postoperative gas in the soft tissues and overlying skin ruth. Normal bilateral superior and inferior pubic rami. Normal pubic symphysis. Normal bilateral ischial tuberosities. There is a left hip arthroplasty without evidence of complication. RAD/Hip Min 2 Views (Portable) IMPRESSION: Uncomplicated left hip arthroplasty. Electronically Signed: Lion Parikh MD at 11:10 EDT Tel , Service support ,
--- NOTE | 2020-12-08 10:21 | OP.PCM_ITS ---
Report of Operation Date of Procedure: 12/08/20 Description of Surgical Findings:: Preoperative diagnosis: Left hip DJD Postoperative diagnosis: Same Procedure: CT-guided Makoplasty assisted left total hip arthroplasty Implants: Zuleyma Accolade II stem size 2, 132 degree neck angle -4 neck length 48 mm Trident II acetabular shell with 30 mm cancellous screw 36 mm ceramic head Anesthesia: Spinal EBL: 175 cc Complications: None Condition: Stable to PACU Indication for procedure: This is a 55 y/o female who has had long-standing arthrosis of the hip who has failed conservative treatment and wished to undergo total hip arthroplasty. We did discuss operative versus nonoperative intervention including risks of bleeding, infection , nerve artery tissue damage, need for further surgery, fracture, leg length discrepancy dislocation blood clot and need for postoperative physical therapy and postoperative expectations. An informed consent was signed. Procedure: Patient was met in the preoperative holding area once again the operative extremity was identified by both patient and physician and was marked. Patient was met by anesthesia . Anesthesia was started. patient was then positioned in the lateral decubitus position on a well-padded pegboard with an axillary roll. All bony prominences were checked and padded. The patient was prepped and draped in the usual sterile fashion. A timeout was called to ensure the proper patient procedure and extremity were being contemplated. Anatomic l andmarks were palpated and marked for a standard posterior lateral approach. Prior to this the ASIS was palpated and 3 fingerbreadths proximal to this 3 pins were placed at a 45 degree angle into the iliac crest with good purchase, stab incisions were made with a 15 blade into the skin prior to placement. The Makoplasty array was then secured. A 10 blade scalpel was used to make a posterior incision through the skin and subcutaneous tissue. retractors were used and electrocautery was used to maintain meticulous hemostasis and dissect full-thickness flaps until the gluteal fascia was reached. The gluteal fascia was incised in line with the gluteal fibers. The bursal tissue was then freed from the underside and a Charnley retractor was placed. The femoral trochanteric checkpoint was placed and leg length was assessed using the trochanteric checkpoint and an EKG lead that was placed on the knee prior to prepping the leg .the fat pad was then elevated off of the external rotators wi th electrocautery and the external rotators were dissected off of the greater trochanter including the piriformis and were tagged with #1 Ethibond for later repair. The joint capsule opened with posterior trapdoor technique. The hip was surgically dislocated. The measurement on the preoperative CT from the top of the lesser trochanter to the femoral neck cut was marked Hohmann was placed around the lesser trochanter. A neck cutting guide was used to brandi the neck with a Bovie and an oscillating saw was used complete the femoral neck cut. The femoral head was then removed and sized. We then turned our attention to the acetabulum. A Bovie was used to make a perforation in the anterior joint capsule and a Portillo retractor was placed this was repeated in the 6 o'clock position and a wide amanda was placed there. With a long handled knife the labral and pulvinar tissue were removed. We then registered the acetabulum with the pointing array and confirmed our landmarks. Once the socket was thoroughly prepared and labral tissue and pulvinar was removed we single reamed with the robotic arm. We then used the robotic arm to position the acetabular implant and impacted it into place under robotic guidance. We then proceeded to place a posterior superior screw by drilling first measuring and inserting the screw. We then inserted a trial liner. And turned our attention back to the femur at this point a femoral elevator was used. As well as a pointed wide Hohmann around the lesser trochanter and a Hohmann to help retract the gluteus medius. A box chisel was used to remove excess lateral neck followed by a canal finder and a lateralizing reamer. This was followed by sequential broaches. Attention was made of the version within the canal based on preoperative templating. Once the final broach was seated we then trialed reduced the hip it was determined that a 132 degree neck angle with a -4 neck length was the appropriate size. We then checked stability with shuck testing as well as flexion and internal rotation. then proceeded with hip extension and checked leg lengths at the knees and heels as well as with the trochanteric checkpoint and knee EKG lead. At this point trials were removed. A liner was inserted to the cup. The femoral stem was inserted. We re-trialed and then proceeded to impact the femoral head onto the Carlos taper. We then surgically reduce the hip check stability again and leg lengths and were satisfied. Betadine rinse was allowed to sit for 5 minutes while everyone changed their gloves. Thorough irrigation was performed. Followed by closure of the external rotators with #2 FiberWire followed by closure of gluteal fascia with #1 Ethibond. 0 Vicryl fat stitches and 2-0 Vicryl subcutaneous stitches and ruth in the skin. A pulls were placed in the pin sites over the iliac crest with Xeroform 4 x 4 and OpSite. dressing was applied to incisional area with Mepilex Ag and an abduction pillow was placed. Patient tolerated the procedure well there was no intraoperative complications all counts were correct and the patient was brought back to the PACU in stable condition.
[2020-12-08] MEDS: Lactated Ringers 1,000 ML 125 ML IV ×2 (10:36→14:31)
[2020-12-08] MEDS: Cefazolin 1 GM/50 ML BAG IV ×2 (10:55→18:16)
--- NOTE | 2020-12-08 11:25 | PCM.DC ---
Discharge Instructions Activity Weight Bearing Status: Weight bearing as tolerated Keep extremity elevated above heart level: Operative Extremity Dressing / Incision Call your doctor if you observe: Shortness of breath and Chest pain Change Dressing in: 2 days Follow Up Care Please Follow Up With: Danilo Platt DO When: 2weeks Test Results: Test results from this visit will be discussed in further detail at your follow-up appointment, if applicable. Discharge Plan Admission Attending Provider: Danilo Platt Primary Care Provider: Parris Espino Instructions Patient Instructions: ED Chest Pain, Noncardiac Discharge Orders/Prescriptions Prescriptions: No Action omeprazole 20 mg capsule,delayed release(DR/EC) 20 mg PO DAILY RF: 0 multivitamin [Multiple Vitamins] Tablet 1 tab PO DAILY RF: 0 escitalopram oxalate 10 mg tablet 10 mg PO DAILY RF: 0 aspirin [Adult Aspirin Regimen] 81 mg tablet,delayed release (DR/EC) 81 mg PO DAILY RF: 0 Pulmicort Flexhaler 180 mcg/actuation aerosol powdr breath activated 1 - 2 inh INHALATION .COMPLEX Qty: 1 RF: 6 ProAir HFA 90 mcg/actuation HFA aerosol inhaler 2 inh INHALATION Q4H PRN (Reason: shortness of breath or wheezing) Qty: 8.5 RF: 6 rosuvastatin 5 mg tablet 5 mg PO DAILY Qty: 90 RF: 3 levothyroxine 50 mcg tablet 50 mcg PO DAILY Qty: 90 RF: 3 (DME) Handicap Parking Placard See Rx Instructions .Route .MEDSUPPLY Qty: 1 RF: 0 meloxicam 15 mg tablet 15 mg PO DAILY PRN (Reason: pain) Qty: 90 RF: 1 cephalexin [Keflex] 750 mg capsule 750 mg PO BID Qty: 20 RF: 0 Referrals / Follow Up: Parris Espino MD [Primary Care Provider] - Disposition Disposition (needs filled in before D/C Order can be placed): Home, Self Care
[2020-12-08] MEDS: oxyCODONE 5 MG Tablet PO ×2 (14:30→18:19)
[2020-12-08] MEDS: Senna/Docusate Sodium 1 Tablet 2 TABLET PO (21:42)
[2020-12-08] MEDS: Atorvastatin Calcium 10 MG Tablet PO (21:45)
[2020-12-09] MEDS: Cefazolin 1 GM/50 ML BAG IV (02:31)
[2020-12-09 02:32] VITALS: BP 109/38; PULSE 58; RESP 18; TEMP 37.1; O2SAT 97
[2020-12-09] MEDS: oxyCODONE 5 MG Tablet PO ×2 (02:56→12:03)
[2020-12-09 05:40] VITALS: BP 106/68; PULSE 65; RESP 18; TEMP 37.1; O2SAT 95
[2020-12-09] MEDS: Levothyroxine 50 MCG Tablet PO (05:43)
[2020-12-09] MEDS: APIXABAN 2.5 MG TABLET PO (05:43)
[2020-12-09] MEDS: Acetaminophen 500 MG Tablet 1000 MG PO (05:43)
[2020-12-09 05:45] LABS: Mean Corp Hgb Conc 32.4 g/dL (32-36); Mean Corpuscular Hgb 29.6 pg (27.0-32.0); Mean Corpuscular Volume 91.4 fL (81-99); Mean Platelet Vol. 10.3 fl (6.2-12.0); Platelet Count 265 K/mm3 (150-450); RBC Distribution Width SD 43.1 fl (35.1-43.9); Red Blood Count 3.72 M/mm3 (4.2-5.4); White Blood Count 15.4 K/mm3 (4.4-11.0)
[2020-12-09 06:08] LABS: Anion Gap 7 (5-15); BUN 16 mg/dL (7-18); BUN/Creat Ratio 21.6 RATIO (10-20); Calcium,Total 8.2 mg/dL (8.5-10.1); Chloride 106 mmol/L (98-107); Creatinine, Serum 0.74 mg/dL (0.55-1.02); EST Glomerular Filtration Rate 86 mL/min (>60); Est Glom Filt Rate - Afr Amer 104 mL/min (>60); Estimated Creatinine Clearance 69.38 ml/min; Glucose 127 mg/dL (74-106); Potassium 4.2 mmol/L (3.5-5.1); Sodium Level 137 mmol/L (136-145)
--- NOTE | 2020-12-09 07:28 | PCM.PN.ORT ---
Subjective Subjective Seen and examined doing well pain controlled denies fever chills nausea vomiting shortness of breath chest pain ambulating well with physical therapy ready for discharge home Objective Data Objective Data Vital Signs: Vital Signs Temp Pulse Resp BP Pulse Ox 98.7 F 65 18 106/68 95 12/09/20 05:40 12/09/20 05:40 12/09/20 05:40 12/09/20 05:40 12/09/20 05:40 Oxygen Flow Rate (L/min) 6 Oxygen Delivery Method Room Air Weight: 239 lb 3.225 oz Body Mass Index (BMI) 42.3 Intake & Output: Intake and Output for Last 24 Hours 12/07/20 12/08/20 12/09/20 23:59 23:59 23:59 Intake Total 4886.50 / 4886.50 400 / 400 Output Total 850 / 850 Balance 4036.50 / 4036.50 400 / 400 Lab / Micro Data Result Diagrams: 12/09/20 05:26 12/09/20 05:26 Labs: Laboratory Results - last 24 hr 12/08/20 06:20: POC Glucose 90 12/08/20 06:54: Blood Type O POSITIVE, Antibody Screen NEGATIVE 12/09/20 05:26: WBC 15.4 H, RBC 3.72 L, Hgb 11.0 L, Hct 34.0 L, MCV 91.4, MCH 29.6, MCHC 32.4, RDW Std Deviation 43.1, RDW Coeff of Nahomi 13.0, Plt Count 265, MPV 10.3 12/09/20 05:26: Sodium 137, Potassium 4.2, Chloride 106, Carbon Dioxide 24.0, Anion Gap 7, BUN 16, Creatinine 0.74, Estim Creat Clear Calc 69.38, Est GFR (MDRD) Af Amer 104, Est GFR (MDRD) Non-Af 86, BUN/Creatinine Ratio 21.6 H, Glucose 127 H, Calcium 8.2 L Micro: Microbiology 11/26/20 08:30 Swab (Method) Nasal Screen MRSA/MSSA - Final Radiography Diagnostic Testing: Radiology Impression Hip X-Ray 12/08/20 10:15 IMPRESSION: Uncomplicated left hip arthroplasty. Electronically Signed: Lion Parikh MD at 11:10 EDT Tel , Service support , Physical Exam Const alert and oriented x3 General Appearance: cooperative Extremity Extremity Narrative: Left hip dressing clean dry and intact neurovascular intact left lower extremity Assessment & Plan Assessment/Plan (1) S/P total hip arthroplasty: QUALIFIERS: Laterality: left Qualified Code(s): Z96.642 - Presence of left artificial hip joint PLAN: DC home PT OT weightbearing as tolerated outpatient physical therapy DVT prophylaxis Eliquis 2.5 mg twice daily for 3 weeks post op thigh-high compression stockings Follow-up 2 weeks
--- NOTE | 2020-12-09 07:30 | PCM.DC ---
Discharge Instructions Activity Weight Bearing Status: Weight bearing as tolerated Keep extremity elevated above heart level: Operative Extremity Dressing / Incision Call your doctor if you observe: Shortness of breath and Chest pain Additional Dressing/Incision Instructions:: Do not shower 72hrs. Begin daily showering warm water antibacterial soap postop day #3( 72hrs Post-operatively) and then daily. Leave the dressing on for 72 hours postoperatively then may remove prior to first shower and change dressing daily after this until no drainage for 2 consecutive days then may leave open to air. Follow hip precautions that were reviewed in hospital. Wear compression stockings, may remove at night. Start physical therapy as directed in hospital. Follow prescriptions instructions do not take any other pain medication or differ dosing without consulting your physician. Do not take oral NSAIDs until blood thinner has been completed , then may begin the day after completion if needed . Call Dr. Platt's office with any concerns. Follow Up Care Please Follow Up With: Danilo Platt DO When: 2 weeks Test Results: Test results from this visit will be discussed in further detail at your follow-up appointment, if applicable. Discharge Plan Admission Admit Date/Time: 12/08/20 12:23 Attending Provider: Danilo Platt Primary Care Provider: Parris Espino Instructions Patient Instructions: ED Chest Pain, Noncardiac Discharge Orders/Prescriptions Prescriptions: New acetaminophen 500 mg Tablet 1,000 mg PO Q6H Qty: 90 RF: 0 Eliquis 2.5 mg Tablet 2.5 mg PO BID Qty: 42 RF: 0 oxycodone 5 mg Tablet 5 - 10 mg PO Q4H PRN PRN (Reason: Pain Score 4-10) 7 Days Qty: 60 RF: 0 Continued omeprazole 20 mg capsule,delayed release(DR/EC) 20 mg PO DAILY RF: 0 multivitamin [Multiple Vitamins] Tablet 1 tab PO DAILY RF: 0 escitalopram oxalate 10 mg tablet 10 mg PO DAILY RF: 0 aspirin [Adult Aspirin Regimen] 81 mg tablet,delayed release (DR/EC) 81 mg PO DAILY RF: 0 Pulmicort Flexhaler 180 mcg/actuation aerosol powdr breath activated 1 - 2 inh INHALATION .COMPLEX Qty: 1 RF: 6 ProAir HFA 90 mcg/actuation HFA aerosol inhaler 2 inh INHALATION Q4H PRN (Reason: shortness of breath or wheezing) Qty: 8.5 RF: 6 rosuvastatin 5 mg tablet 5 mg PO DAILY Qty: 90 RF: 3 levothyroxine 50 mcg tablet 50 mcg PO DAILY Qty: 90 RF: 3 (DME) Handicap Parking Placard See Rx Instructions .Route .MEDSUPPLY Qty: 1 RF: 0 cephalexin [Keflex] 750 mg capsule 750 mg PO BID Qty: 20 RF: 0 Discontinued meloxicam 15 mg tablet 15 mg PO DAILY PRN (Reason: pain) Qty: 90 RF: 1 Referrals / Follow Up: Parris Espino MD [Primary Care Provider] -
[2020-12-09] MEDS: Multivitamins,Therapeutic Tablet 1 TABLET PO (08:28)
[2020-12-09] MEDS: Pantoprazole Sodium 20 MG Tablet PO (08:28)
[2020-12-09] MEDS: Senna/Docusate Sodium 1 Tablet 2 TABLET PO (08:28)
[2020-12-09 08:29] VITALS: BP 109/52; PULSE 62; RESP 18; TEMP 36.9; O2SAT 96
[2020-12-09] MEDS: Escitalopram Oxalate 10 MG Tablet PO (08:29)
--- NOTE | 2020-12-09 10:45 | CASEMGMT ---
CAIN NICOLE Face to Face with patient for initial transition planning/care coordination assessment. RN CM introduced self and role at [facility]. Patient sitting in chair, alert and oriented. Patient willing to participate in assessment and is able to answer all questions appropriately. Care providers, pharmacy, and demographics verified. Patient wishes to discharge home and is setup with [facility] for outpatient therapy. Patient states he has no further needs or concerns at this time. CM to follow for discharge planning needs that may arise. PCP: Srinivas Specialists: Terrence packager Preferred Pharmacy: [facility] retail Insurance: [employer] Prescription Benefit: yes Living Will/HPOA: yes, son Abdiaziz Lira LNOK: , daughter, son Living Arrangements: Patient states she lives in a 2 story home with access for bed and bath on first floor. Patient states she is independent at home. Transportation: /father DME/HHC: Patient states she has shower chair, raised toilet, grab bars, walker, cpap at home. Patient is scheduled for outpatient therapy starting at [facility] Disposition Plan: Patient to discharge home with outpatient therapy, family support, and follow-up plans in place. Freida HOWE, RN, CM
[2020-12-09 12:02] VITALS: BP 116/52; PULSE 58; RESP 18; TEMP 36.8; O2SAT 98
--- NOTE | 2020-12-09 15:13 | PHA.DC.MR ---
Pharmacy Service has performed discharge medication reconciliation for this patient. The patient's discharge medication list was reviewed for discrepancies and discrepancies were resolved. Patient education papers prepared but patient was discharged when I tried to loan counselor. Home Medications aspirin 81 mg tablet,delayed release 81 mg PO DAILY 10/02/18 albuterol sulfate 90 mcg/actuation aerosol inhaler 2 inh INHALATION Q4H PRN #8.5 g 02/01/20 budesonide 180 mcg/actuation breath activated powder inhaler 1 - 2 inh INHALATION .COMPLEX #1 ea 02/01/20 rosuvastatin 5 mg tablet 5 mg PO DAILY #90 tab 05/13/20 levothyroxine 50 mcg tablet 50 mcg PO DAILY #90 tab 05/14/20 multivitamin 1 tab PO DAILY 05/18/20 omeprazole 20 mg capsule,delayed release 20 mg PO DAILY 05/18/20 Handicap Parking Placard #1 ea 09/08/20 cephalexin 750 mg capsule 750 mg PO BID #20 cap 11/24/20 escitalopram oxalate 10 mg PO DAILY 11/24/20 acetaminophen 1,000 mg PO Q6H #90 tab 12/09/20 apixaban [Eliquis] 2.5 mg PO BID #42 tab 12/09/20 oxycodone 5 - 10 mg PO Q4H PRN PRN 7 Days #60 tab 12/09/20
== END 2020-12-09 13:00 | disposition home or self-care (01) ==
LOC: SDC 14:39 → MS3 14:39
PROVIDERS: Anesthesiology; Admitting Provider Orthopaedic Surgery; PCP Internal Medicine; Referring Provider Orthopaedic Surgery; Visit Provider Orthopaedic Surgery
PROC: 8E0Y0CZ Robotic Assisted Procedure of Lower Extremity, Open Approach (ICD-10-PCS; CPT 27130; principal; 2020-12-08 07:00)
DX: M16.12 Unilateral primary osteoarthritis, left hip (principal); F41.9 Anxiety disorder, unspecified; F32.9 Major depressive disorder, single episode, unspecified; K21.9 Gastro-esophageal reflux disease without esophagitis; E78.5 Hyperlipidemia, unspecified; E03.9 Hypothyroidism, unspecified; G47.33 Obstructive sleep apnea (adult) (pediatric); J45.909 Unspecified asthma, uncomplicated; Z79.899 Other long term (current) drug therapy; E66.01 Morbid (severe) obesity due to excess calories; Z68.41 Body mass index [BMI] 40.0-44.9, adult; M51.16 Intervertebral disc disorders with radiculopathy, lumbar region; M47.26 Other spondylosis with radiculopathy, lumbar region; Z79.82 Long term (current) use of aspirin; Z79.51 Long term (current) use of inhaled steroids
CPT/HCPCS: 01214; 27130; S2900; 36415; 73502; 80048; 80053; 80061; 82962; 82985; 83735; 84443; 85025; 85027; 85610; 85730; 86850; 86900; 86901; 87081; 88307; 88311; 96361; 96365; 96366; 97110; 97162; 97166; 97530; 97535; 99218; C1713; C1776; J7120; G0378; J2405

== ENCOUNTER 2021-01-22 10:30 | Outpatient (RCR) | payer OTHER, SELFPAY ==
[2020-10-26 10:49] VITALS: BMI 41.3
[2020-12-08 12:23] VITALS: BMI 42.3
--- NOTE | 2020-12-10 11:03 | HP.PTEVAL_ITS ---
Patient's Visit Information IRIS BENTON is a 55 year old F referred to Physical Therapy by Dr. Danilo Platt DO with a diagnosis of L MARY 07/11/20. Date of Evaluation: 12/10/20 Physical Therapist: Isra Del Castillo, PT, ATC - Visit Plan Frequency: 2-3x /Week Duration: 6 Weeks Plan: L hip distraction and mobilizations, L LE strengthening, core strengthening, balance and proprio, nustep, and HEP - Subjective DOS: 12/08/20. Pt reports she had a L MARY performed using the posterior approach. Pt reports she was in severe pain prior to the surgery. Pt reports she is still stiff and painful, but the pain is much better than prior to surgery. Pt reports she was in the hospital for one day where they taught her how to walk with a walker and to negotiate stairs. Pt also reports she has been performing her HEP she was given at the hospital. Pt denies tingling or numbness in L LE. Sleep difficulty without the use of pain meds. Pt reports she does have one flight of stairs in her house she needs to be able to negotiate. Pt reports she was tr eated by pain injections prior to surgery. 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 0/10 pain at rest, 8/10 pain at worst (when she is sitting for a while and attempts to stand upright to walk) - Pain L MARY Pain Intensity (Out of 10): 0 Pain Intensity Range: 8 - Objective Neuro:B LE sensation is WNL to light touch throughout. B achilles reflex= 2/3. ROM: R hip flex= 110; L hip flex= 70, ext= 0. MMT: R hip flex= 20.5, ext= 28; L hip flex= 10.5, ext= 10.5. [place]: 47. Gait: Pt is able to ambulate 208' with WW until needing to sit and rest - Balance/Special Test Scores TUG Test Time Seconds: 44.55 - Goals Goal 1:: Decrease L hip pain x 50% to aid with sleep Goal Time Frame: 4-6 Weeks Goal 2:: Increase L hip strength x 5-10#F to aid with stair negotiation Goal Time Frame: 4-6 Weeks Goal 3:: Pt will be able to ambulate greater than 600 feet to aid with community ambulation Goal Time Frame: 4-6 Weeks Goal 4:: I with HEP Goal Time Frame: 4-6 Weeks - Rehabilitation Potential Physical Therapy Diagnosis: L hip pain, weakness, and limited ROM secondary to L MARY Rehabilitation Potential: Good - Anticipated Interventions Patient/Client Instruction: Educate patient on: Condition, Plan of Care For the Purpose of:: To improve self management Therapeutic Exercise to Include: Strength training, Endurance training, Balance training, Gait and locomotor training, Active ROM, Dynamic Lumbar Stabilization For the Purpose of:: To decrease pain, To increase ROM, To improve muscle performance and motor function Cryotherapy (ice pack, ice massage): Yes For the Purpose of:: To decrease pain Thank you for the opportunity to evaluate your patient. For Medicare and Medicare HMO plans, please review the plan of care and approve it. It will need to be FAXED BACK to us at [phone] for Medicare purposes. For Medicare only, by signing this I certify the plan of care. Please let me know if there are questions or concerns regarding this plan of care. Physician Signature: Date:
--- NOTE | 2021-01-22 11:02 | HP.PTDCSUM ---
It has been my pleasure to treat IRIS BENTON referred by Dr. Danilo Platt DO, with the diagnosis of L MARY 12/08/20 for a total of 13 visit(s). Discharge Date: Please see the following information for a summary of their discharge status. Subjective: I feel great today. I am ready for discharge L MARY Pain Intensity (Out of 10): 0 % Improvement: 99 Objective/Function: L hip pain ranges from 1-2/10. Pt is able to ambulate greater than 600 feet without difficulty. ROM: flex= 90, ext= 20. MMT: flex= 17, ext= 20 #F. Pt is I with HEP Goal 1:: Decrease L hip pain x 50% to aid with sleep Goal Progress: Goal Met Goal 2:: Increase L hip strength x 5-10#F to aid with stair negotiation Goal Progress: Goal Met Goal 3:: Pt will be able to ambulate greater than 600 feet to aid with community ambulation Goal Progress: Goal Met Goal 4:: I with HEP Goal Progress: Goal Met Plan: Discharge to HEP If there are questions or concerns regarding this patient's physical therapy, please feel free to call me at [phone]. Thank you for the referral of this patient. Sincerely, Isra Del Castillo, PT, ATC Balance/Gait/Functional tests - Balance/Special Test Scores Lower Extremity Functional Score: 56 TUG Test Time Seconds: 44.55 Tug Test: >30sec.=impaired mobility
== END 2021-01-22 19:00 | disposition home or self-care (01) ==
LOC: PT 10:30
PROVIDERS: PCP Internal Medicine; Referring Provider Orthopaedic Surgery; Visit Provider Orthopaedic Surgery
DX: Z47.1 Aftercare following joint replacement surgery (principal); Z96.642 Presence of left artificial hip joint
CPT/HCPCS: 97110; 97161; 97164

== ENCOUNTER 2021-04-10 19:33 | Observation (INO) | payer OTHER, SELFPAY ==
[2021-04-10 19:34] VITALS: BP 159/87; PULSE 86; RESP 16; TEMP 36.4; O2SAT 97; BMI 41.3
--- NOTE | 2021-04-10 19:42 | EKG12_ITS ---
Test Reason : ALT LOC Blood Pressure : / mmHG Vent. Rate : 056 BPM Atrial Rate : 056 BPM P-R Int : 158 ms QRS Dur : 088 ms QT Int : 436 ms P-R-T Axes : 050 001 012 degrees QTc Int : 420 ms Sinus bradycardia Low voltage QRS Borderline ECG Confirmed by SUNG BADILLO, FAISAL ([id number]), technical writer and editor ADEEL EM ([id number]) on 04/13/2021 9:11:17 AM Referred By: BB Confirmed By:FAISAL ALMARAZ MD
--- NOTE | 2021-04-10 19:42 | CT_ITS ---
We are attempting to reach an attending provider to discuss findings. An addendum with communication details will be sent when the communication is complete. STUDY: CT BRAIN WITHOUT CONTRAST REASON FOR EXAM: Female, 55 years old. Altered mental status RADIATION DOSAGE (If Supplied By Facility): CTDIvol = ( ) mGy, DLP = ( ) mGycm TECHNIQUE: Transaxial CT imaging of the brain was performed without administration of intravenous contrast material. Individualized dose optimization techniques were used for this CT. COMPARISON: No relevant priors. FINDINGS: Brain parenchyma is without focal lesions, mass effect, acute intracranial hemorrhage, extra parenchymal fluid collections, hydrocephalus or herniation. The skull is intact. CT/STROKE Brain/Head without Cont IMPRESSION: 1. Normal CT brain. Electronically Signed: [place] MD at 20:14 EST Tel , Service support ,
--- NOTE | 2021-04-10 19:43 | ED.VIS.STROK ---
HPI History of Present Illness Chief Complaint: Mental Status Change Informant: patient Onset/Context/Timing Onset: Hours (1-2) Narrative Narrative: Patient presenting and around 1940, she was last noted normal at 1800 by her who brought her, acting confused, saying that it felt like she has a urinary infection because she feels like she needs to urinate and it feels like it is going to burn when I go, states she does not remember much from the last couple hours, and feels like she was in a dream state, like everything was surreal and cannot describe it further. She feels nauseated. She does not have a headache or changes in her vision or focal neurologic symptoms in her arms and legs. She does not remember if she has been able to walk okay or not. She remembers no recent illness or injury. When asked about when the last time she urinated was she does not remember. She takes aspirin daily because she was told that her platelet counts are high. After further discussion with the , patient had symptoms that started at noon, almost 8 hours prior to arrival. They wax and wane today, but basically confusion never had dysarthria or aphasia type symptoms. [facility] Medical History Alcohol use Anxiety Anxiety and depression Arthritis Arthritis of left hip Asthma Back pain Cardiology follow-up encounter Chest pain CPAP (continuous positive airway pressure) dependence Diverticulosis Diverticulosis Dyspnea on exertion Epigastric pain Gastric reflux GERD (gastroesophageal reflux disease) Hay fever High cholesterol History of edema History of pain when walking History of steroid therapy Hyperlipidemia Hypothyroidism Mid back pain Non-smoker Normal stress echocardiogram Obstructive sleep apnea Pre-op evaluation Shortness of breath on exertion Sleep apnea Thyroid disease Wears glasses Home Medications aspirin 81 mg tablet,delayed release 81 mg PO DAILY 10/02/18 [History Last Taken Unknown] multivitamin 1 tab PO DAILY 05/18/20 [History Last Taken Unknown] omeprazole 20 mg capsule,delayed release 20 mg PO DAILY 05/18/20 [History Last Taken Unknown] Handicap Parking Placard #1 ea 09/08/20 [Rx Last Taken Unknown] acetaminophen 1,000 mg PO Q6H #90 tab 12/09/20 [Rx Last Taken Unknown] albuterol sulfate 90 mcg/actuation aerosol inhaler 2 inh INHALATION Q4H PRN #8.5 g 01/13/21 [Rx Last Taken Unknown] escitalopram oxalate 10 mg tablet 10 mg PO DAILY #90 tab 03/15/21 [Rx Last Taken Unknown] rosuvastatin 5 mg tablet 5 mg PO DAILY #90 tab 03/15/21 [Rx Last Taken Unknown] levothyroxine 50 mcg tablet 50 mcg PO DAILY #90 tab 03/16/21 [Rx Last Taken Unknown] Pulmicort Flexhaler 1 - 2 inh INHALATION .COMPLEX PRN 04/11/21 [History Last Taken Unknown] Allergy/AdvReac Type Severity Reaction Status Date / Time sulfamethoxazole Allergy Severe Hives Verified 04/10/21 19:34 [From Bactrim] trimethoprim [From Bactrim] Allergy Severe Hives Verified 04/10/21 19:34 Family History Father Diabetes Hypertension Hyperlipidemia Glaucoma Mother Diabetes Hyperlipidemia PVC's (premature ventricular contractions) Bilateral osteoarthritis resulting from hip dysplasia Thyroid disorder Brother TIA (transient ischemic attack) After hiking and dehydration. No cerebrovascular disease Brother Hypertension Anxiety and depression Aunt Breast cancer Grandmother CVA (cerebral vascular accident) Cancer melanoma ovarian cancer Surgical History History of ankle surgery (~2012) History of colonoscopy (~2013) History of D&C (~1994) History of lumpectomy Social History household members: spouse housing: house Smoking Status: Never smoker alcohol intake: current alcohol intake frequency: holidays/special occasions only Alcohol type: wine substance use type: does not use what type of physical activity do you participate in: walking seatbelt use: always do you feel safe at home: Yes ROS ROS ED Constitutional Constitutional ED: Denies chills or fever(s) Eyes Eyes: Denies change in vision or diplopia ENT ENT ED: Denies rhinorrhea or sore throat Cardiovascular Cardiovascular: Denies chest pain or palpitations Respiratory/Chest Respiratory/Chest: Denies cough or dyspnea Gastrointestinal Gastrointestinal: Reports nausea; Denies abdominal pain, diarrhea or vomiting Genitourinary Genitourinary ED: Reports as per HPI and urinary urgency; Denies hematuria Musculoskeletal Musculoskeletal: Denies back pain or neck pain Integumentary Denies abscess or rash Neurologic Neurologic: Reports confusion; Denies headache(s), paresthesias or weakness Psychiatric Psychiatric: Denies anxiety or suicidal thoughts EXAM Physical Exam Const Vital Signs: 04/10/21 19:34 04/10/21 19:45 04/10/21 21:28 Temperature 97.6 F L Temperature Source Temporal Pulse Rate 86 87 Respiratory Rate 16 15 Blood Pressure 159/87 H 151/66 H Blood Pressure Mean 111 94 Pulse Ox 97 98 Oxygen Delivery Method Room Air Room Air Room Air 04/10/21 23:09 04/11/21 00:13 Temperature Temperature Source Pulse Rate 82 62 Respiratory Rate 16 11 L Blood Pressure 127/77 H 126/62 H Blood Pressure Mean 93 83 Pulse Ox 98 99 Oxygen Delivery Method Room Air Room Air Positive well nourished and well developed General Appearance ED: well developed and NAD HEENT Reports moist mucous membranes normocephalic and atraumatic Eyes PERRL and EOMs intact bilaterally Neck full ROM and supple Resp normal respiratory effort and clear to auscultation bilaterally Cardio regular rate, regular rhythm and no murmurs GI non-tender and non-distended Auscultation: normoactive bowel sounds Palpation: soft Back/Spine no CVA tenderness General Back: other FROM Extremity normal to inspection General Extremety ED: Negative for edema, pulses abnormal or tenderness General Extremity: Negative for edema or pulses abnormal Neuro oriented x3, CN's II-XII intact bilaterally and no sensory deficits noted Sensorium / Orientation: awake and alert Motor Exam: strength 5/5 throughout Skin no rashes or lesions noted and no wounds STROKE Vital Signs/Narrative: Vital Signs Pulse Resp BP Pulse Ox 04/11/21 00:13 62 11 L 126/62 H 99 04/10/21 23:09 82 16 127/77 H 98 04/10/21 21:28 87 15 151/66 H 98 NIHSS Initial: 1a Level of Consciousness: 0 1b LOC Questions (Score 2 if aphasic/stupor): 2 1c LOC Commands (Only score 1st attempt): 0 2 Best Gaze (If aphasic, use reflexive mvmts.): 0 3 Visual: 0 4 Facial Palsy: 0 5 Motor Arm Right (UN = amputation/fusion): 0 5 Motor Arm Left: 0 6 Motor Leg Right: 0 6 Motor Leg Left: 0 7 Limb ataxia (Only + if out of proportion): 0 8 Sensory (Aphasia/stupor=0 or 1, coma=2): 0 9 Best Language: 0 10 Dysarthria (mute, coma=2, intubated=UN): 0 11 Extinction and Inattention (only scored if +): 0 Total Score: 2 MDM MDM MDM Narrative Medical decision making narrative: Plain CT is negative, the patient is not an IV TPA candidate due to timing. Discussed with stroke neurology at [facility], they agree with doing CT angiography and admitting the patient for further evaluation if no LVO. This was done and negative. Patient is in sinus rhythm. She is doing well clinically, blood pressure hovering in the 150s systolic, will admit for further evaluation. She has never had this happen before. She is no better now, but still admits that she is having short-term memory problems from event recent hours. According to stroke neurology, transient global amnesia is also on the differential diagnosis. The recommend admission for MRI and further evaluation/monitoring, treating the patient similarly to a TIA patient. Lab Data Attestation: I reviewed the patient's lab results. Labs: Laboratory Results - last 24 hr 04/10/21 04/10/21 04/10/21 19:39 19:40 19:40 WBC 12.2 H RBC 4.82 Hgb 13.7 Hct 41.1 MCV 85.3 MCH 28.4 MCHC 33.3 RDW Std Deviation 42.6 RDW Coeff of [place] 13.6 Plt Count 316 MPV 9.8 Immature Gran % (Auto) 0.600 Neut % (Auto) 79.5 H Lymph % (Auto) 13.8 L [place] % (Auto) 4.2 Eos % (Auto) 1.3 Baso % (Auto) 0.6 Absolute Neuts (auto) 9.7 H Absolute Lymphs (auto) 1.69 Nucleated RBC % 0 PT 12.8 INR 1.0 APTT 30.3 Sodium Potassium Chloride Carbon Dioxide Anion Gap BUN Creatinine Estim Creat Clear Calc Est GFR (MDRD) Af Amer Est GFR (MDRD) Non-Af BUN/Creatinine Ratio Glucose Lactic Acid Calcium Total Bilirubin AST ALT Alkaline Phosphatase Troponin I High Sens Total Protein Albumin Globulin Albumin/Globulin Ratio Urine Color Urine Clarity Urine pH Ur Specific [place] Urine Protein Urine Glucose (UA) Urine Ketones Urine Occult Blood Urine Nitrite Urine Bilirubin Urine Urobilinogen Ur Leukocyte Esterase Urine RBC Urine WBC Ur Squamous Epith Cells Urine Bacteria Urine Mucus POC Glucose 111 H 04/10/21 04/10/21 04/10/21 19:40 19:40 19:50 WBC RBC Hgb Hct MCV MCH MCHC RDW Std Deviation RDW Coeff of [place] Plt Count MPV Immature Gran % (Auto) Neut % (Auto) Lymph % (Auto) [place] % (Auto) Eos % (Auto) Baso % (Auto) Absolute Neuts (auto) Absolute Lymphs (auto) Nucleated RBC % PT INR APTT Sodium 139 Potassium 3.4 L Chloride 105 Carbon Dioxide 26.0 Anion Gap 8 BUN 11 Creatinine 0.91 Estim Creat Clear Calc 61.38 Est GFR (MDRD) Af Amer 81 Est GFR (MDRD) Non-Af 67 BUN/Creatinine Ratio 12.0 Glucose 128 H Lactic Acid 1.0 Calcium 9.3 Total Bilirubin 0.40 AST 26 ALT 29 Alkaline Phosphatase 63 Troponin I High Sens 10 Total Protein 7.9 Albumin 3.9 Globulin 4.0 Albumin/Globulin Ratio 1.0 Urine Color Straw Urine Clarity Clear Urine pH 7.0 Ur Specific [place] 1.010 Urine Protein Negative Urine Glucose (UA) Normal Urine Ketones Negative Urine Occult Blood 25 H Urine Nitrite Negative Urine Bilirubin Negative Urine Urobilinogen Normal Ur Leukocyte Esterase Negative Urine RBC 0-5 SEEN Urine WBC 0 SEEN Ur Squamous Epith Cells 0-5 SEEN Urine Bacteria 0 SEEN Urine Mucus 0 SEEN POC Glucose Radiography Diagnostic Testing: Clinical Impression(s) from Imaging Studies Brain CT 04/10/21 19:42 IMPRESSION: 1. Normal CT brain. Electronically Signed: Mt Guthrie MD at 20:14 EST Tel , Service support , ADDENDUM: 04/10/212038 IMPRESSION: 1. Normal CT brain. N.B. : The above Results were Read Back by Mt Guthrie MD to Dr Shae MD, and understanding confirmed on 04/10/2021 20:32:21 (ET). Electronically Signed: Mt Guthrie MD at 20:14 EST Tel , Service support , Chest X-Ray 04/10/21 19:53 IMPRESSION: 1. No radiographic evidence of acute cardiopulmonary disease. Electronically Signed: Brayan Manzo DO at 0:24 EST Tel , Service support , Head/Neck CTA 04/10/21 20:25 IMPRESSION: No stenosis or aneurysm. Highly tortuous cervical vessels suggesting hypertension. Electronically Signed: Brayan Manzo DO at 23:08 EST Tel , Service support , EKG Initial EKG: Attestation: I personally reviewed and interpreted this EKG as follows: Interpretation: Sinus Rhythm and No Acute Injury Pattern Stroke Documentation Questions Stroke Team Activated: No (less likely acute stroke; CT stroke protocol still ordered) Was Patient considered for Endovascular Intervention?: No (neg CTA) IV Alteplase (t-PA) Administered: No (timing) Discharge Plan Dx/Rx/DC Orders Clinical Impression: Acute confusion Disposition Disposition: Acute Care Hospital [facility]
[2021-04-10 19:46] LABS: Bedside Glucose 111 mg/dL (70-110)
[2021-04-10 19:51] LABS: Absolute Lymphocyte Count 1.69 X10^3/uL (0.83-4.51); Absolute Neutrophil Count 9.7 X10^3/uL (2.0-7.7); Bacteria 0 SEEN /hpf (None Seen); Basophil# 0.07 X10^3/uL; Basophil% 0.6 % (0-1); Eosinophil# 0.16 X10^3/uL; Eosinophils% 1.3 % (0-5); Hematocrit 41.1 % (37-47); Hemoglobin 13.7 g/dL (12.0-15.0); Lymphocyte # 1.69 X10^3/ul (0.83-4.51); Lymphocyte % 13.8 % (19-41); Mean Corp Hgb Conc 33.3 g/dL (32-36); Mean Corpuscular Hgb 28.4 pg (27.0-32.0); Mean Corpuscular Volume 85.3 fL (81-99); Mean Platelet Vol. 9.8 fl (6.2-12.0); Monocyte# 0.52 X10^3/uL; Monocyte% 4.2 % (0-10); Mucous, Urine 0 SEEN /hpf (<or=2+); NRBC Flagged by Analyzer 0 % (0-5); Neutrophil # 9.73 X10^3/uL (2.7-7.7); Neutrophil % 79.5 % (47-70); Platelet Count 316 K/mm3 (150-450); RBC Distribution Width CV 13.6 % (11.6-14.6); RBC Distribution Width SD 42.6 fl (35.1-43.9); Red Blood Count 4.82 M/mm3 (4.2-5.4); White Blood Cells 0 SEEN /hpf (0-5); White Blood Count 12.2 K/mm3 (4.4-11.0)
--- NOTE | 2021-04-10 19:53 | RAD_ITS ---
INDICATION: confusion EXAMINATION/TECHNIQUE: X-RAY - XR Chest 1 View COMPARISON: None. FINDINGS: LINES/DEVICES: None. LUNGS: Symmetric normal lung volumes. No airspace opacity or abnormal interstitial pattern. No nodule or mass. No pleural effusion or pneumothorax. MEDIASTINUM AND CARDIOVASCULAR STRUCTURES: Normal size and contour of the cardiomediastinal silhouette. No evidence of pulmonary vascular congestion. BONES AND SOFT TISSUES: No abnormality within limits of the exam. RAD/Chest 1 View (Portable) IMPRESSION: 1. No radiographic evidence of acute cardiopulmonary disease. Electronically Signed: Brayan Manzo DO at 0:24 EST Tel , Service support ,
[2021-04-10] MEDS: Ondansetron 4 MG/2 ML Vial IV (19:54)
[2021-04-10 19:55] LABS: Color, Urine Straw (Yellow); Glucose, Dipstick Normal (Normal); Ketone-Dipstick Negative (Negative); Leukocyte Esterase-Dipstick Negative /ul (Negative); Nitrite-Dipstick Negative (Negative); Occult Blood-Urine 25 /ul (Negative); Protein-Dipstick Negative (Negative); Urine Bilirubin Dipstick Negative (Negative); Urine Clarity Clear (Clear); Urine Urobilinogen Normal (Normal)
[2021-04-10 20:05] LABS: Squamous Epithelial Cells - UA 0-5 SEEN /hpf (5-10)
[2021-04-10 20:06] LABS: Prothrombin Time (Protime)PT. 12.8 SECONDS (11.7-14.9); Red Blood Cells-Urine 0-5 SEEN /hpf (0-5)
[2021-04-10 20:07] LABS: Partial Thromboplast Time 30.3 Seconds (24.1-36.2)
[2021-04-10 20:20] LABS: AST(SGOT) 26 U/L (15-37); Alanine Aminotransfer ALT/SGPT 29 U/L (13-56); Albumin, Serum 3.9 g/dL (3.2-5.0); Alkaline Phosphatase 63 U/L (45-117); Anion Gap 8 (5-15); BUN 11 mg/dL (7-18); Calcium,Total 9.3 mg/dL (8.5-10.1); Chloride 105 mmol/L (98-107); Creatinine, Serum 0.91 mg/dL (0.55-1.02); EST Glomerular Filtration Rate 67 mL/min (>60); Est Glom Filt Rate - Afr Amer 81 mL/min (>60); Estimated Creatinine Clearance 61.38 ml/min; Glucose 128 mg/dL (74-106); Potassium 3.4 mmol/L (3.5-5.1); Protein, Total 7.9 g/dL (6.4-8.2); Sodium Level 139 mmol/L (136-145); Troponin-I HS 10 pg/mL (3.0-54.0)
--- NOTE | 2021-04-10 20:24 | ED.RN ---
FAXED DEMO TO [facility]
--- NOTE | 2021-04-10 20:25 | CT_ITS ---
INDICATION: confusion EXAMINATION: CT BRAIN WITH CONTRAST TECHNIQUE: Noncontrast axial images were obtained of the brain. Subsequently, routine carotid CT angiogram protocol was performed without and with IV contrast. In addition, images were obtained of the [place]. NASCET criteria using the distal ICAs for comparison were used for evaluation of stenoses. 3D reconstructions were reviewed. A radiation dose optimization technique was used for this scan. IV Contrast dosage and agent: 100 mL of [id number] COMPARISON: Unenhanced CT head and brain 04/10/2021. FINDINGS: --CT BRAIN: BRAIN PARENCHYMA: No intra- or extra-axial hemorrhage. No evidence of acute infarct. No intracranial mass or mass effect. There is preservation of the tran/white matter interface. Posterior fossa structures are unremarkable. CSF SPACES: Appropriate for age. No hydrocephalus. Basal cisterns are patent. CALVARIUM, SKULL BASE, PARANASAL SINUSES AND MASTOID AIR CELLS: Clear. No discrete lytic or blastic abnormalities. ASPECTS Score for Acute Strokes: 10 --CTA NECK: AORTIC ARCH AND BRANCHES: Normal anatomy, patent. RIGHT CCA: No occlusion, significant stenosis or dissection. RIGHT ICA: No occlusion, significant stenosis or dissection. Highly tortuous vessel. LEFT CCA: No occlusion, significant stenosis or dissection. Highly tortuous vessel. LEFT ICA: No occlusion, significant stenosis or dissection. Highly tortuous vessel. RIGHT VERTEBRAL ARTERY: No occlusion, significant stenosis or dissection. LEFT VERTEBRAL ARTERY: No occlusion, significant stenosis or dissection. Both vertebral arteries show moderate tortuosity. Left vertebral artery is diminutive compared to the right representing right-sided dominance. No stenosis. NECK SOFT TISSUES: Unremarkable. --CTA HEAD: Several small foci of air seen in the cavernous sinuses likely associated with venous access. No parenchymal air. --Anterior circulation: ICAs: No significant stenosis at the intracranial/visualized segments. ACAs: No significant stenosis at the visualized segments. ACOM: Not exemplified. MCAs: No significant stenosis at the visualized segments. --Posterior circulation: PCOMs: Small posterior communicating branches are present bilaterally. audio visual collections coordinator: No significant stenosis at the visualized segments. BASILAR ARTERY: No significant stenosis. VERTEBRAL ARTERIES: Right-sided dominant vessel with relatively small left-sided intracranial vertebral artery. No stenosis. No evidence of intracranial aneurysm or vascular malformation. Anterior cervical chain lymph nodes less than 7 mm maximum short axis with no suspicious morphology or clumping of lymph nodes; within normal limits. CT/CTA Head AND Neck W/ Contrast IMPRESSION: No stenosis or aneurysm. Highly tortuous cervical vessels suggesting hypertension. Electronically Signed: Brayan Manzo DO at 23:08 EST Tel , Service support ,
[2021-04-10 21:28] VITALS: BP 151/66; PULSE 87; RESP 15; O2SAT 98
[2021-04-10 23:09] VITALS: BP 127/77; PULSE 82; RESP 16; O2SAT 98
[2021-04-11] VITALS (15 sets, daily range): BP systolic 101–138; BP diastolic 46–96; PULSE 55–68; RESP 11–18; TEMP 36.1–36.9; O2SAT 94–99; BMI 42.1
--- NOTE | 2021-04-11 01:03 | PCM.HP.STD ---
HPI - General General Date of Admission: 04/11/21 HPI Narrative IRIS BENTON, is a 55 F with a significant history of anxiety and depression who presents at the emergency department with a sudden onset confusion. Her symptoms occurred several hours before presentation. Associated with her symptoms was nonsensical speech. She kept asking her repetitive questions. She felt like she was in a dream state. On initial evaluation by the emergency department doctor, patient had NIH of 2 secondary to stating the wrong month and a wrong age. At the time of my evaluation patient new the month of her bed in the age. She vaguely remembers what her pain. She partly remembers talking to her straight tooth gear generator operator's to try to convince her to come to emergency department. Reportedly patient call patient's straight tooth gear generator operator's who spoke to patient on the phone. Emergency plan doctor discussed the case with tele-neurologist who recommended that stroke work-up be obtained but patient symptoms may be from total global amnesia. [facility] Medical History Alcohol use Anxiety Anxiety and depression Arthritis Arthritis of left hip Asthma Back pain Cardiology follow-up encounter Chest pain CPAP (continuous positive airway pressure) dependence Diverticulosis Diverticulosis Dyspnea on exertion Epigastric pain Gastric reflux GERD (gastroesophageal reflux disease) Hay fever High cholesterol History of edema History of pain when walking History of steroid therapy Hyperlipidemia Hypothyroidism Mid back pain Non-smoker Normal stress echocardiogram Obstructive sleep apnea Pre-op evaluation Shortness of breath on exertion Sleep apnea Thyroid disease Wears glasses Home Medications aspirin 81 mg tablet,delayed release 81 mg PO DAILY 10/02/18 [History Last Taken 04/09/21] multivitamin 1 tab PO DAILY 05/18/20 [History Last Taken Unknown] omeprazole 20 mg capsule,delayed release 20 mg PO QHS 05/18/20 [History Last Taken 04/09/21] Handicap Parking Placard #1 ea 09/08/20 [Rx Last Taken Unknown] acetaminophen 1,000 mg PO Q6H #90 tab 12/09/20 [Rx Last Taken Unknown] albuterol sulfate 90 mcg/actuation aerosol inhaler 2 inh INHALATION Q4H PRN #8.5 g 01/13/21 [Rx Last Taken Unknown] escitalopram oxalate 10 mg tablet 10 mg PO DAILY #90 tab 03/15/21 [Rx Last Taken 04/09/21] rosuvastatin 5 mg tablet 5 mg PO DAILY #90 tab 03/15/21 [Rx Last Taken 04/09/21] levothyroxine 50 mcg tablet 50 mcg PO DAILY #90 tab 03/16/21 [Rx Last Taken 04/10/21] Pulmicort Flexhaler 1 - 2 inh INHALATION .COMPLEX PRN 04/11/21 [History Last Taken Unknown] Allergy/AdvReac Type Severity Reaction Status Date / Time sulfamethoxazole Allergy Severe Hives Verified 04/10/21 19:34 [From Bactrim] trimethoprim [From Bactrim] Allergy Severe Hives Verified 04/10/21 19:34 Family History Father Diabetes Hypertension Hyperlipidemia Glaucoma Mother Diabetes Hyperlipidemia PVC's (premature ventricular contractions) Bilateral osteoarthritis resulting from hip dysplasia Thyroid disorder Brother TIA (transient ischemic attack) After hiking and dehydration. No cerebrovascular disease Brother Hypertension Anxiety and depression Aunt Breast cancer Grandmother CVA (cerebral vascular accident) Cancer melanoma ovarian cancer Surgical History History of ankle surgery (~2012) History of colonoscopy (~2013) History of D&C (~1994) History of lumpectomy Social History household members: spouse housing: house Smoking Status: Never smoker alcohol intake: current alcohol intake frequency: holidays/special occasions only Alcohol type: wine substance use type: does not use what type of physical activity do you participate in: walking seatbelt use: always do you feel safe at home: Yes ROS ROS Narrative Constitutional: Denies fever, chills, fatigue, anorexia and change in weight Eyes: Denies blurry vision, change in eye color, change in vision, discharge from eye(s), double vision, erythema, eye pain, loss of vision or other HEENT: Denies abnormal hearing, dysphagia, ear pain, epistaxis, headache(s), hearing loss, nasal congestion, nasal discharge, post nasal drip, sinus pressure, sore throat or other Cardiovascular: Denies chest pain or palpitations. Denies dyspnea on exertion, orthopnea and paroxysmal nocturnal dyspnea Respiratory/Chest: Denies cough, excessive phlegm production, shortness of breath with exertion and wheezing Gastrointestinal: Denies abdominal pain, coffee ground emesis, constipation, diarrhea, dyspepsia, hematemesis, hematochezia, loose stools, melena, nausea, vomiting or other Genitourinary: Denies burning urination, difficulty urinating, dysuria, hematuria, nocturia, urinary frequency, urinary hesitancy, urinary incontinence, urinary urgency or other Musculoskeletal: Denies arthralgias, back pain, joint pain, joint stiffness, joint swelling, myalgias, neck pain or other Neurologic: Confusion. Denies abnormal gait, abnormal speech, disequilibrium, dizziness, focal weakness, headache(s), numbness, paresthesias, seizure-like activity, seizures, syncope, tingling, tremor(s) or other Psychiatric: Denies anxiety, depression, homicidal ideation, suicidal ideation or other Endocrinology: Denies change in body appearance, cold intolerance, excessive sweating, heat intolerance, polydipsia, polyuria or other Hematologic/Lymphatic: Denies anemia, easy bleeding, easy bruising, lymphadenopathy or other Integumentary: Denies rashes Allergic/Immunologic: Denies rhinitis, hives, eczema, asthma or other Vital Signs Vital Signs Vital Signs: 04/10/21 19:34 04/10/21 19:45 04/10/21 21:28 Temperature 97.6 F L Temperature Source Temporal Pulse Rate 86 87 Respiratory Rate 16 15 Blood Pressure 159/87 H 151/66 H Blood Pressure Mean 111 94 Pulse Ox 97 98 Oxygen Delivery Method Room Air Room Air Room Air 04/10/21 23:09 04/11/21 00:13 Temperature Temperature Source Pulse Rate 82 62 Respiratory Rate 16 11 L Blood Pressure 127/77 H 126/62 H Blood Pressure Mean 93 83 Pulse Ox 98 99 Oxygen Delivery Method Room Air Room Air Weight Weight: 112.5 kg Body Mass Index (BMI) 41.3 Physical Exam Narrative Physical exam: General: Well-nourished, well-developed. Head: Normocephalic, atraumatic, no tenderness Eyes: PERRLA, EOMI ENT, no trauma, moist mucous membranes, no rhinorrhea Neck: Nontender, full range of motion, no spinal tenderness, deformities, step-off CVS: Regular rate and rhythm. S1-S2 present. No murmur, gallop or rub. Respiratory : clear to auscultation bilaterally, chest wall nontender, no wheezing Abdomen: Soft, nontender, nondistended, normal bowel sounds, no masses : Deferred Back: Nontender, no CVA tenderness, no midline spinal tenderness, deformities, step-offs Extremities: Nontender full range of motion, no trauma Skin: Normal color, no trauma, abrasions Neuro: Alert, oriented, cranial nerves II through XII grossly intact. Deep tendon reflex not hyperreflexia throughout. No dysmetria on [id number] test and smta-[id number] test. No sensation changes. Psychiatry: Normal mood. Normal affect. Not depressed. Not anxious. Results Lab / Micro Data Result Diagrams: 04/10/21 19:40 04/10/21 19:40 Labs: Laboratory Results - last 24 hr 04/10/21 19:39: POC Glucose 111 H 04/10/21 19:40: WBC 12.2 H, RBC 4.82, Hgb 13.7, Hct 41.1, MCV 85.3, MCH 28.4, MCHC 33.3, RDW Std Deviation 42.6, RDW Coeff of Nahomi 13.6, Plt Count 316, MPV 9.8, Immature Gran % (Auto) 0.600, Neut % (Auto) 79.5 H, Lymph % (Auto) 13.8 L, Gibson % (Auto) 4.2, Eos % (Auto) 1.3, Baso % (Auto) 0.6, Absolute Neuts (auto) 9.7 H, Absolute Lymphs (auto) 1.69, Nucleated RBC % 0 04/10/21 19:40: PT 12.8, INR 1.0, APTT 30.3 04/10/21 19:40: Sodium 139, Potassium 3.4 L, Chloride 105, Carbon Dioxide 26.0, Anion Gap 8, BUN 11, Creatinine 0.91, Estim Creat Clear Calc 61.38, Est GFR (MDRD) Af Amer 81, Est GFR (MDRD) Non-Af 67, BUN/Creatinine Ratio 12.0, Glucose 128 H, Calcium 9.3, Total Bilirubin 0.40, AST 26, ALT 29, Alkaline Phosphatase 63, Troponin I High Sens 10, Total Protein 7.9, Albumin 3.9, Globulin 4.0, Albumin/Globulin Ratio 1.0 04/10/21 19:40: Urine Color Straw, Urine Clarity Clear, Urine pH 7.0, Ur Specific [place] 1.010, Urine Protein Negative, Urine Glucose (UA) Normal, Urine Ketones Negative, Urine Occult Blood 25 H, Urine Nitrite Negative, Urine Bilirubin Negative, Urine Urobilinogen Normal, Ur Leukocyte Esterase Negative, Urine RBC 0-5 SEEN, Urine WBC 0 SEEN, Ur Squamous Epith Cells 0-5 SEEN, Urine Bacteria 0 SEEN, Urine Mucus 0 SEEN 04/10/21 19:50: Lactic Acid 1.[address] 04/10/21 19:42 IMPRESSION: 1. Normal CT brain. Electronically Signed: Mt Guthrie MD at 20:14 EST Tel , Service support , ADDENDUM: 04/10/212038 IMPRESSION: 1. Normal CT brain. N.B. : The above Results were Read Back by Mt Guthrie MD to Dr Shae MD, and understanding confirmed on 04/10/2021 20:32:21 (ET). Electronically Signed: Mt Guthrie MD at 20:14 EST Tel , Service support , Chest X-Ray 04/10/21 19:53 IMPRESSION: 1. No radiographic evidence of acute cardiopulmonary disease. Electronically Signed: Brayan Manzo DO at 0:24 EST Tel , Service support , Head/Neck CTA 04/10/21 20:25 IMPRESSION: No stenosis or aneurysm. Highly tortuous cervical vessels suggesting hypertension. Electronically Signed: Brayan Manzo DO at 23:08 EST Tel , Service support , Assessment & Plan Assessment/Plan (1) Transient global amnesia: PLAN: Transient global amnesia/TIA. There are no focal deficits . Per conversation between emergency department doctor and the tele-neurologist patient should be treated as a TIA patient. Serial NINDS NIH Scale ordered Brain CT and head and neck CTA was independently interpreted. I agree radiologist interpretation above. Chest x-ray independently interpreted did not show any acute cardiopulmonary process. Review of CBC showed mildly elevated white counts with neutrophilia and lymphopenia. Trend CBC . Lipid profile and A1c ordered. Upon my evaluation patient had no focal deficits. However will order a formal physical therapy and occupational therapy for comprehensive assessment. N.p.o. was ordered until bedside swallow eval. Per nurses patient passed her swallowing eval and patient was started on a cardiac diet. Daily aspirin continued. Reportedly patient is on Crestor 5 mg daily. He reported that previously she was on a higher dose but it was reduced apparently because her lipid level improved. Will order high intensity statin at this time. Permissive hypertension. Control blood pressure with labetalol for systolic blood pressure of more than 220 or diastolic blood pressure of more than 120. MRI ordered. Hypokalemia Review of labs showed mild hypokalemia with potassium of 3.4. Trend BMP. Obstructive sleep apnea Home bipap continued Depression/anxiety Escitalopram continued GERD Prilosec continued. DVT prophylaxis Subcutaneous Lovenox ordered. Charges/Coding Visit Charges OBSV E&M: 28649 Initial observation care L3
--- NOTE | 2021-04-11 01:32 | PCS.PANDOC ---
PANDEMIC DOCUMENTATION INITIATED: Date: 12/28/2020 Time: 190
[2021-04-11] MEDS: Acetaminophen 500 MG Tablet 1000 MG PO ×4 (02:25→18:06)
--- NOTE | 2021-04-11 03:34 | ECHOD_ITS ---
Reason For Study: TIA/CVA Procedure This was a 2D Doppler, Color Flow transthoracic echocardiogram. Exam performed portable in patient room. Left Ventricle Normal LV size. Left ventricular systolic function is normal. The estimated ejection fraction is 60 %. Normal diastology for age. No regional wall motion abnormalities noted. Right Ventricle Normal RV size. Normal systolic function. Atria Normal left atrium. Normal right atrium. Bubble contrast study negative for right to left interatrial shunt. Mitral Valve Normal mitral valve. Tricuspid Valve Normal tricuspid valve. Aortic Valve Normal aortic valve. Trisinus/trileaflet aortic valve. Pulmonic Valve Normal pulmonic valve. Great Vessels Normal aortic root. The pulmonary artery is normal size. Normal inferior vena cava. Pericardium/Pleural No pericardial effusion. Medication Performed a rapid injection of agitated mix of 9 cc saline and 1cc air to assess for atrial septal defect. MMode/2D Measurements & Calculations LVIDd: 5.0 cm IVSd: 0.86 cm Ao root diam: 2.9 cm LVIDs: 2.8 cm LVPWd: 1.1 cm RVDd: 3.1 cm FS: 44.4 % LAV(MOD-bp): 66.1 ml LA A4 area: 21.6 cm2 LA dimension(2D): 3.9 cm LAV(MOD-bp) Indexed: 31.8 ml/m2 LAV(MOD-sp2): 67.6 ml LAV(MOD-sp4): 64.0 ml RA A4 area: 14.3 cm2 Time Measurements MV dec time: 0.26 sec Doppler Measurements & Calculations MV E max edison: 98.9 cm/sec Lat Peak E' Edison: 10.5 cm/sec Med Peak E' Edison: 10.2 cm/sec MV A max edison: 74.9 cm/sec E/E' lat: 9.5 E/E' med: 9.7 MV E/A: 1.3 Ao V2 max: 183.3 cm/sec LV V1 max: 162.2 cm/sec PA V2 max: 113.5 cm/sec Ao max P.5 mmHg LV V1 max P.5 mmHg ECHO/Echo Complete Interpretation Summary Normal LV size. Left ventricular systolic function is normal. The estimated ejection fraction is 60 %. Normal diastology for age. Bubble contrast study negative for right to left interatrial shunt. Ordering Physician: Danilo Ortiz Referring Physician: Parris Espino Performed By: Marjorie Baum, MOLINA, RVT
[2021-04-11] MEDS: Levothyroxine 50 MCG Tablet PO (05:39)
[2021-04-11 06:55] LABS: Absolute Lymphocyte Count 1.62 X10^3/uL (0.83-4.51); Absolute Neutrophil Count 4.5 X10^3/uL (2.0-7.7); Basophil# 0.05 X10^3/uL; Basophil% 0.7 % (0-1); Eosinophil# 0.15 X10^3/uL; Eosinophils% 2.2 % (0-5); Hematocrit 38.6 % (37-47); Hemoglobin 12.5 g/dL (12.0-15.0); Lymphocyte # 1.62 X10^3/ul (0.83-4.51); Lymphocyte % 23.7 % (19-41); Mean Corp Hgb Conc 32.4 g/dL (32-36); Mean Corpuscular Hgb 27.9 pg (27.0-32.0); Mean Corpuscular Volume 86.2 fL (81-99); Mean Platelet Vol. 9.9 fl (6.2-12.0); Monocyte# 0.47 X10^3/uL; Monocyte% 6.9 % (0-10); NRBC Flagged by Analyzer 0 % (0-5); Neutrophil # 4.51 X10^3/uL (2.7-7.7); Neutrophil % 66.1 % (47-70); Platelet Count 294 K/mm3 (150-450); RBC Distribution Width CV 13.8 % (11.6-14.6); RBC Distribution Width SD 43.4 fl (35.1-43.9); Red Blood Count 4.48 M/mm3 (4.2-5.4); White Blood Count 6.8 K/mm3 (4.4-11.0)
[2021-04-11 07:16] LABS: Anion Gap 9 (5-15); BUN 10 mg/dL (7-18); BUN/Creat Ratio 12.2 RATIO (10-20); Calcium,Total 9.1 mg/dL (8.5-10.1); Chloride 104 mmol/L (98-107); Cholesterol 134 mg/dL (200); Creatinine, Serum 0.82 mg/dL (0.55-1.02); EST Glomerular Filtration Rate 76 mL/min (>60); Est Glom Filt Rate - Afr Amer 93 mL/min (>60); Estimated Creatinine Clearance 62.62 ml/min; Glucose 107 mg/dL (74-106); High Density Lipoprotein 54 mg/dL; Potassium 3.5 mmol/L (3.5-5.1); Sodium Level 140 mmol/L (136-145); Triglycerides 111 mg/dL; Very Low Density Lipoprotein 22 mg/dL (5-40)
[2021-04-11 07:19] LABS: Hemoglobin A1c 5.8 % (3.8-5.6)
[2021-04-11] MEDS: Aspirin E.C. 81 MG Tablet PO (09:45)
[2021-04-11] MEDS: Multivitamins,Therapeutic Tablet 1 TABLET PO (09:45)
[2021-04-11] MEDS: Escitalopram Oxalate 10 MG Tablet PO (09:45)
[2021-04-11] MEDS: Pantoprazole Sodium 20 MG Tablet PO (09:45)
--- NOTE | 2021-04-11 11:38 | PN.HOSP_ITS ---
Documented by User: Juan PASTRANA 04/11/21 11:52 Subjective Subjective Patient is a 55-year-old female comfortably resting in a chair, alert and oriented x3. Patient feels like her memory has returned, although is still fuzzy around events of her amnesia. Denies any upper or lower extremity weakness/numbness/tingling. Does not appear in acute distress. Objective Data Objective Data Vital Signs: Vital Signs Temp Pulse Resp BP Pulse Ox 98.2 F 61 16 112/46 L 94 04/11/21 09:35 04/11/21 09:35 04/11/21 09:35 04/11/21 09:35 04/11/21 09:35 Oxygen Delivery Method Room Air Weight: 237 lb 14.06 oz Body Mass Index (BMI) 42.1 Intake & Output: Intake and Output for Last 24 Hours 04/09/21 04/10/21 04/11/21 23:59 23:59 23:59 Intake Total 500 / 500 Balance 500 / 500 Lab / Micro Data Result Diagrams: 04/11/21 04:54 04/11/21 04:54 Labs: Laboratory Results - last 24 hr 04/10/21 19:39: POC Glucose 111 H 04/10/21 19:40: WBC 12.2 H, RBC 4.82, Hgb 13.7, Hct 41.1, MCV 85.3, MCH 28.4, MCHC 33.3, RDW Std Deviation 42.6, RDW Coeff of Nahomi 13.6, Plt Count 316, MPV 9.8, Immature Gran % (Auto) 0.600, Neut % (Auto) 79.5 H, Lymph % (Auto) 13.8 L, Mathews % (Auto) 4.2, Eos % (Auto) 1.3, Baso % (Auto) 0.6, Absolute Neuts (auto) 9.7 H, Absolute Lymphs (auto) 1.69, Nucleated RBC % 0 04/10/21 19:40: PT 12.8, INR 1.0, APTT 30.3 04/10/21 19:40: Sodium 139, Potassium 3.4 L, Chloride 105, Carbon Dioxide 26.0, Anion Gap 8, BUN 11, Creatinine 0.91, Estim Creat Clear Calc 61.38, Est GFR (MDRD) Af Amer 81, Est GFR (MDRD) Non-Af 67, BUN/Creatinine Ratio 12.0, Glucose 128 H, Calcium 9.3, Total Bilirubin 0.40, AST 26, ALT 29, Alkaline Phosphatase 63, Troponin I High Sens 10, Total Protein 7.9, Albumin 3.9, Globulin 4.0, Albumin/Globulin Ratio 1.0 04/10/21 19:40: Urine Color Straw, Urine Clarity Clear, Urine pH 7.0, Ur Specific [place] 1.010, Urine Protein Negative, Urine Glucose (UA) Normal, Urine Ketones Negative, Urine Occult Blood 25 H, Urine Nitrite Negative, Urine Bilirubin Negative, Urine Urobilinogen Normal, Ur Leukocyte Esterase Negative, Urine RBC 0-5 SEEN, Urine WBC 0 SEEN, Ur Squamous Epith Cells 0-5 SEEN, Urine Bacteria 0 SEEN, Urine Mucus 0 SEEN 04/10/21 19:50: Lactic Acid 1.0 04/11/21 04:54: WBC 6.8, RBC 4.48, Hgb 12.5, Hct 38.6, MCV 86.2, MCH 27.9, MCHC 32.4, RDW Std Deviation 43.4, RDW Coeff of Nahomi 13.8, Plt Count 294, MPV 9.9, Immature Gran % (Auto) 0.400, Neut % (Auto) 66.1, Lymph % (Auto) 23.7, Mathews % (Auto) 6.9, Eos % (Auto) 2.2, Baso % (Auto) 0.7, Absolute Neuts (auto) 4.5, Absolute Lymphs (auto) 1.62, Nucleated RBC % 0 04/11/21 04:54: Sodium 140, Potassium 3.5, Chloride 104, Carbon Dioxide 27.0, Anion Gap 9, BUN 10, Creatinine 0.82, Estim Creat Clear Calc 62.62, Est GFR (MDRD) Af Amer 93, Est GFR (MDRD) Non-Af 76, BUN/Creatinine Ratio 12.2, Glucose 107 H, Calcium 9.1, Triglycerides 111, Cholesterol 134, LDL Cholesterol 58, VLDL Cholesterol 22, HDL Cholesterol 54 04/11/21 04:54: Hemoglobin A1c 5.8 H Micro: Microbiology 04/10/21 19:40 Urine, Clean Catch Urine Culture - Preliminary Culture exhibits no growth. Radiography Diagnostic Testing: Radiology Impression Brain CT 04/10/21 19:42 IMPRESSION: 1. Normal CT brain. Electronically Signed: Mt Guthrie MD at 20:14 EST Tel , Service support , ADDENDUM: 04/10/212038 IMPRESSION: 1. Normal CT brain. N.B. : The above Results were Read Back by Mt Guthrie MD to Dr Shae MD, and understanding confirmed on 04/10/2021 20:32:21 (ET). Electronically Signed: Mt Guthrie MD at 20:14 EST Tel , Service support , Chest X-Ray 04/10/21 19:53 IMPRESSION: 1. No radiographic evidence of acute cardiopulmonary disease. Electronically Signed: Brayan Manzo DO at 0:24 EST Tel , Service support , Head/Neck CTA 04/10/21 20:25 IMPRESSION: No stenosis or aneurysm. Highly tortuous cervical vessels suggesting hypertension. Electronically Signed: Brayan Manzo DO at 23:08 EST Tel , Service support , Physical Exam Const alert, oriented x3 and no apparent distress HEENT head/scalp atraumatic and moist oral mucous membranes Head and Scalp: normocephalic Eyes PERRL, EOMs intact bilaterally and conjunctivae normal Neck no lymphadenopathy, supple and no JVD Resp normal respiratory effort, no retractions, no use of accessory muscles and clear to auscultation bilaterally Cardio regular rate, regular rhythm, no murmurs and no JVD GI normal to inspection, nondistended, normoactive bowel sounds, soft to palpation and non-tender Extremity normal to inspection, full ROM and no clubbing, cyanosis or edema Skin no rashes or lesions noted, no wounds and skin turgor normal Neuro CN's II-XII intact bilaterally Psych affect normal Assessment & Plan Assessment/Plan (1) Transient global amnesia: (2) Acute confusion: PLAN: Day 1 Discharge planning: Current plan is for patient to discharge home when medically ready. 1) transient global amnesia versus TIA Patient does not complain of nor did she demonstrate any focal neurological deficits, is appropriately alert and oriented. Patient memory is beginning to return and patient remembers going to the ER and putting up [place] decorations before that, but is unclear about the events in between that. Telemetry neurology consult was obtained while in the ED and was recommend that patient come in for evaluation of TIA. Patient is already on aspirin and statin regimen at home. NIH stroke scale 0. Lipid panel and hemoglobin A1c are within normal limits. Patient to obtain MRI in a.m. 2) hypokalemia Resolved, currently 3.5. Continue to trend BMP. 3) depression/anxiety Continue escitalopram. 4) GERD Continue Prilosec. 5) TAMIKO Continue home BiPAP. DVT Prophylaxis - Lovenox. Patient seen by Juan Andujar PA-C, under the supervision of Dr. Stanley. Documented by User: Dr. Yash Stanley MD 04/11/21 16:38 Objective Data Lab / Micro Data Result Diagrams: 04/11/21 04:54 04/11/21 04:54 Charges/Coding Addendum Addendum: Dr. Stanley: I personally reviewed the chart and examined the patient, and agree with the above findings. 55-year-old female presented from home with concerns for possible TIA versus transient global amnesia. On admission initially she was having short of nonsensical speech and she had basically lost memory of several hours. She currently describes it as having been living in a dream. Based on her speech she was given an NIH of 2 by neurology. Initial work-up with a CT of the brain was unremarkable CT of the head and neck was markable. MRI is pending tomorrow as is an echo. Symptoms have completely resolved when she states that she has been significantly stressed at home and did not have any stressful event that would indicate transient global amnesia. At this point we will treat her like a TIA pending MRI and echo results. Visit Charges OBSV E&M: 29328 Subsequent observation care L2
[2021-04-11] MEDS: Enoxaparin 40 MG/0.4 ML Syringe SC (14:48)
[2021-04-11] MEDS: Atorvastatin Calcium 40 MG Tablet PO (22:49)
[2021-04-12] VITALS (9 sets, daily range): BP systolic 113–127; BP diastolic 58–68; PULSE 50–67; RESP 17–18; TEMP 36.4–37; O2SAT 95–98
[2021-04-12] MEDS: Acetaminophen 500 MG Tablet 1000 MG PO (06:14)
[2021-04-12] MEDS: Levothyroxine 50 MCG Tablet PO (06:15)
--- NOTE | 2021-04-12 09:00 | MRI_ITS ---
ACR Level 3 findings have been noted. An addendum which confirms receipt of the report will follow. HISTORY: Acute encephalopathy. TECHNIQUE: Multiplanar and multisequence MR images of the brain were obtained without gadolinium. # of images incl. paperwork: 303. COMPARISON: None. FINDINGS: BRAIN PARENCHYMA: Mild T2 FLAIR hyperintense signal in the bilateral cerebral white matter. Punctate focus of restricted diffusion in the medial left temporal lobe. INTRACRANIAL HEMORRHAGE: No acute intracranial hemorrhage. CSF SPACES: Cerebral ventricles, cortical sulci, and other extra-axial CSF spaces within normal limits in size for patient's age.No midline shift or other significant mass effect. No extra-axial fluid collection. VASCULAR SYSTEM: Major intracranial flow-voids maintained. ORBITS: Unremarkable. PARANASAL SINUSES AND MASTOID AIR CELLS: Clear. MRI/Brain without Contrast IMPRESSION: Punctate focus of restricted diffusion in the medial left temporal lobe, suspicious for acute infarct. Mild chronic small vessel ischemic gliosis. at 1019 Reported and signed by: Iesha Samuels MD Electronically Signed: Iesha Samuels MD at 10:18 EST Tel , Service support ,
[2021-04-12] MEDS: Enoxaparin 40 MG/0.4 ML Syringe SC (09:58)
[2021-04-12] MEDS: Pantoprazole Sodium 20 MG Tablet PO (09:58)
[2021-04-12] MEDS: Aspirin E.C. 81 MG Tablet PO (09:58)
[2021-04-12] MEDS: Escitalopram Oxalate 10 MG Tablet PO (09:58)
[2021-04-12] MEDS: Multivitamins,Therapeutic Tablet 1 TABLET PO (09:58)
--- NOTE | 2021-04-12 11:05 | PCM.DC ---
Discharge Instructions Diet Discharge Diet: No restrictions Activity Discharge Activity: Return to Normal Activity Weight Bearing Status: Weight bearing as tolerated Dressing / Incision Call your doctor if you observe: Fever of 101 or Higher, Numbness or Tingling, Shortness of breath, Dizziness, Chest pain, Increased palpitations (irregular heartbeat) and Calf discomfort Follow Up Care Please Follow Up With: Primary care provider When: Within the next two weeks. Test Results: Test results from this visit will be discussed in further detail at your follow-up appointment, if applicable. Discharge Plan Admission Admit Date/Time: 04/11/21 00:50 Primary Reason for Your Visit: Transient global amnesia Attending Provider: Sin Heath Primary Care Provider: Parris Espino Discharge Orders/Prescriptions Prescriptions: Continued omeprazole 20 mg capsule,delayed release(DR/EC) 20 mg PO QHS RF: 0 multivitamin [Multiple Vitamins] Tablet 1 tab PO DAILY RF: 0 acetaminophen 500 mg Tablet 1,000 mg PO Q6H Qty: 90 RF: 0 Pulmicort Flexhaler 180 mcg/actuation aerosol powdr breath activated 1 - 2 inh INHALATION .COMPLEX PRN (Reason: ALLERGIES) RF: 0 aspirin [Adult Aspirin Regimen] 81 mg tablet,delayed release (DR/EC) 81 mg PO DAILY RF: 0 (DME) Handicap Parking Placard See Rx Instructions .Route .MEDSUPPLY Qty: 1 RF: 0 ProAir HFA 90 mcg/actuation HFA aerosol inhaler 2 inh INHALATION Q4H PRN (Reason: shortness of breath or wheezing) Qty: 8.5 RF: 6 rosuvastatin 5 mg tablet 5 mg PO DAILY Qty: 90 RF: 3 escitalopram oxalate 10 mg tablet 10 mg PO DAILY Qty: 90 RF: 3 levothyroxine 50 mcg tablet 50 mcg PO DAILY Qty: 90 RF: 3 Referrals / Follow Up: Parris Espino MD [Primary Care Provider] - Within 2 Weeks Satinder Cat MD [STAFF PHYSICIAN] - Within 2 Weeks (Obtain loop recorder to assess for A-Fib) Disposition Disposition (needs filled in before D/C Order can be placed): Home, Self Care
--- NOTE | 2021-04-12 11:33 | TELEMED_ITS ---
[facility] has confirmed receipt of a request for visit. This document confirms receipt of the order initiating the consult. To find the results of the consultation, please view the patient's reports for the scanned Telemed Consult.
--- NOTE | 2021-04-12 12:08 | CASEMGMT ---
SW completed a PHQ 9 with patient as she may have had a TIA. Patient scored a 0 which indicates no depression. Patient denies any need for counseling resources or Stroke support group. Love DOMINGUEZ
[2021-04-12] MEDS: Atorvastatin Calcium 80 MG Tablet PO (12:55)
--- NOTE | 2021-04-12 13:28 | PCM.DC.SUM ---
Documented by User: Juan PASTRANA 04/12/21 13:37 Providers Date of Admission: 04/11/21 Primary Care Physician: Dr. Parris Espino MD Reason For Visit: TOTAL GLOBAL AMNESIS Diagnosis Discharge Diagnosis (1) Transient global amnesia: Status: Acute Code(s): G45.4 - Transient global amnesia (2) Acute confusion: Status: Acute Code(s): R41.0 - Disorientation, unspecified Medications at Discharge Home Medications aspirin 81 mg tablet,delayed release 81 mg PO DAILY 10/02/18 multivitamin 1 tab PO DAILY 05/18/20 omeprazole 20 mg capsule,delayed release 20 mg PO QHS 05/18/20 Handicap Parking Placard #1 ea 09/08/20 acetaminophen 1,000 mg PO Q6H #90 tab 12/09/20 albuterol sulfate 90 mcg/actuation aerosol inhaler 2 inh INHALATION Q4H PRN #8.5 g 01/13/21 escitalopram oxalate 10 mg tablet 10 mg PO DAILY #90 tab 03/15/21 rosuvastatin 5 mg tablet 5 mg PO DAILY #90 tab 03/15/21 levothyroxine 50 mcg tablet 50 mcg PO DAILY #90 tab 03/16/21 Pulmicort Flexhaler 1 - 2 inh INHALATION .COMPLEX PRN 04/11/21 Hospital Course Procedures 2-D Echocardiogram and Transthoracic echo Summary of Care Provided Minutes Spent on Discharge: 35 Hospital Course: Patient is a 55-year-old female who was admitted to the hospital on 04/11/2021 for evaluation and management of possible TIA versus transient global amnesia. Patient symptoms and amnestic episode quickly resolved over the course of admission and patient did not demonstrate any return of amnestic episode or any focal neurological deficits throughout admission. MRI was obtained and demonstrated a punctate focus of restricted diffusion in the medial left temporal lobe that was suspicious for acute infarct. This prompted an SOC evaluation who did see the patient. SOC neurologist was unconvinced this this was an actual acute infarct and and that the findings on MRI were more the result of radiographic artifact. SOC neurologist believes that patient suffered a case of transient global amnesia and believes her prognosis to be good. Patient's cholesterol, BP and sugars were controlled throughout admission and there was no further need for adjustment. Patient is to continue home dose of Crestor and aspirin. Patient is also to obtain a cardiology appointment for possible loop recorder to evaluate for atrial fibrillation and subsequent management thereof. Echocardiogram was also obtained and demonstrated normal LV size and systolic function with an EF of 60% and negative bubble study. All other home medications were continued. Patient is to follow-up with primary care provider and cardiology within the next 2 weeks. Patient seen by Juan Andujar PA-C, under the supervision of Dr. Heath. Physical Exam Narrative Patient is a 55-year-old female comfortably lying in bed, alert and orient x3. Patient reports no more episodes of amnesia and denies any focal neurological deficits. Denies development of any new symptoms overnight. Does not appear in acute distress. Const alert, oriented x3 and no apparent distress HEENT normocephalic, head/scalp atraumatic and hearing grossly normal bilaterally Eyes PERRL, EOMs intact bilaterally and conjunctivae normal Neck no lymphadenopathy, supple and no JVD Resp normal respiratory effort, no retractions, no use of accessory muscles and clear to auscultation bilaterally Cardio regular rate, regular rhythm, no murmurs and no JVD GI normal to inspection, nondistended, normoactive bowel sounds, soft to palpation and non-tender Extremity normal to inspection and full ROM Skin no rashes or lesions noted, no wounds and skin turgor normal Neuro CN's II-XII intact bilaterally Psych affect normal Weight / BMI Weight Weight: 237 lb 14.06 oz Body Mass Index (BMI) 42.1 ABG / Lab / Microbiology Data Result Diagrams: 04/11/21 04:54 04/11/21 04:54 Microbiology: Microbiology 04/10/21 19:40 Urine, Clean Catch Urine Culture - Final Mixed Gram Pos & Gram Neg Org Radiography Diagnostic Testing: Radiology Impression Echocardiogram 04/11/21 03:34 Interpretation Summary Normal LV size. Left ventricular systolic function is normal. The estimated ejection fraction is 60 %. Normal diastology for age. Bubble contrast study negative for right to left interatrial shunt. Ordering Physician: Danilo Ortiz Referring Physician: Parris Espino Performed By: Marjorie Baum, VELMACS, RVT Brain MRI 04/12/21 09:00 IMPRESSION: Punctate focus of restricted diffusion in the medial left temporal lobe, suspicious for acute infarct. Mild chronic small vessel ischemic gliosis. at 1019 Reported and signed by: Iesha Samuels MD Electronically Signed: Iesha Samuels MD at 10:18 EST Tel , Service support , ADDENDUM: 04/12/21 1134 IMPRESSION: Punctate focus of restricted diffusion in the medial left temporal lobe, suspicious for acute infarct. Mild chronic small vessel ischemic gliosis. at 1019 Reported and signed by: Iesha Samuels MD N.B. : Abeba Jiang RN, confirmed on 04/12/2021 11:27:24 (ET) that the healthcare facility has received the radiology report. Electronically Signed: Iesha Samuels MD at 10:18 EST Tel , Service support , D/C Instructions Discharge Diet: No restrictions Weight Bearing Status: Weight bearing as tolerated Call your doctor if you observe: Fever of 101 or Higher, Numbness or Tingling, Shortness of breath, Dizziness, Chest pain, Increased palpitations (irregular heartbeat) and Calf discomfort Please Follow Up With: Primary care provider When: Within the next two weeks. Meaningful Use Info Meaningful Use Diagnoses (Choose all that apply): None applicable Discharge Plan Admission Admit Date/Time: 04/11/21 00:50 Primary Reason for Your Visit: Transient global amnesia Attending Provider: Sin Heath Primary Care Provider: Parris Espino Discharge Orders/Prescriptions Prescriptions: Continued omeprazole 20 mg capsule,delayed release(DR/EC) 20 mg PO QHS RF: 0 multivitamin [Multiple Vitamins] Tablet 1 tab PO DAILY RF: 0 acetaminophen 500 mg Tablet 1,000 mg PO Q6H Qty: 90 RF: 0 Pulmicort Flexhaler 180 mcg/actuation aerosol powdr breath activated 1 - 2 inh INHALATION .COMPLEX PRN (Reason: ALLERGIES) RF: 0 aspirin [Adult Aspirin Regimen] 81 mg tablet,delayed release (DR/EC) 81 mg PO DAILY RF: 0 (DME) Handicap Parking Placard See Rx Instructions .Route .MEDSUPPLY Qty: 1 RF: 0 ProAir HFA 90 mcg/actuation HFA aerosol inhaler 2 inh INHALATION Q4H PRN (Reason: shortness of breath or wheezing) Qty: 8.5 RF: 6 rosuvastatin 5 mg tablet 5 mg PO DAILY Qty: 90 RF: 3 escitalopram oxalate 10 mg tablet 10 mg PO DAILY Qty: 90 RF: 3 levothyroxine 50 mcg tablet 50 mcg PO DAILY Qty: 90 RF: 3 Referrals / Follow Up: Satinder Cat MD [STAFF PHYSICIAN] - Within 2 Weeks (Obtain loop recorder to assess for A-Fib) Parris Espino MD [Primary Care Provider] - Within 2 Weeks Disposition Disposition (needs filled in before D/C Order can be placed): Home, Self Care Documented by User: Dr. Sin Heath MD 04/12/21 13:40 Providers Date of Admission: 04/11/21 Reason For Visit: TOTAL GLOBAL AMNESIS Medications at Discharge Home Medications aspirin 81 mg tablet,delayed release 81 mg PO DAILY 10/02/18 multivitamin 1 tab PO DAILY 05/18/20 omeprazole 20 mg capsule,delayed release 20 mg PO QHS 05/18/20 Handicap Parking Placard #1 ea 09/08/20 acetaminophen 1,000 mg PO Q6H #90 tab 12/09/20 albuterol sulfate 90 mcg/actuation aerosol inhaler 2 inh INHALATION Q4H PRN #8.5 g 01/13/21 escitalopram oxalate 10 mg tablet 10 mg PO DAILY #90 tab 03/15/21 rosuvastatin 5 mg tablet 5 mg PO DAILY #90 tab 03/15/21 levothyroxine 50 mcg tablet 50 mcg PO DAILY #90 tab 03/16/21 Pulmicort Flexhaler 1 - 2 inh INHALATION .COMPLEX PRN 04/11/21 Hospital Course Summary of Care Provided Minutes Spent on Discharge: 35 Hospital Course: This patient was seen in conjunction with Juan Andujar PA-C. I have independently interviewed and examined the patient and reviewed pertinent historical, laboratory, and other data. Please refer to Juan Andujar PA-C's note for details of this patient's presentation, findings, and recommendations. I have reviewed Juan Andujar PA-C's note and concur with documented findings. In brief, patient is a 55-year-old lady admitted with symptoms consistent with transient global ischemia. Admitted to monitored bed for subsequent management Hospital course as documented above ABG / Lab / Microbiology Data Result Diagrams: 04/11/21 04:54 04/11/21 04:54 Discharge Plan Admission Admit Date/Time: 04/11/21 00:50 Primary Reason for Your Visit: Transient global amnesia Attending Provider: Sin Heath Primary Care Provider: Parris Espino Discharge Orders/Prescriptions Prescriptions: Continued omeprazole 20 mg capsule,delayed release(DR/EC) 20 mg PO QHS RF: 0 multivitamin [Multiple Vitamins] Tablet 1 tab PO DAILY RF: 0 acetaminophen 500 mg Tablet 1,000 mg PO Q6H Qty: 90 RF: 0 Pulmicort Flexhaler 180 mcg/actuation aerosol powdr breath activated 1 - 2 inh INHALATION .COMPLEX PRN (Reason: ALLERGIES) RF: 0 aspirin [Adult Aspirin Regimen] 81 mg tablet,delayed release (DR/EC) 81 mg PO DAILY RF: 0 (DME) Handicap Parking Placard See Rx Instructions .Route .MEDSUPPLY Qty: 1 RF: 0 ProAir HFA 90 mcg/actuation HFA aerosol inhaler 2 inh INHALATION Q4H PRN (Reason: shortness of breath or wheezing) Qty: 8.5 RF: 6 rosuvastatin 5 mg tablet 5 mg PO DAILY Qty: 90 RF: 3 escitalopram oxalate 10 mg tablet 10 mg PO DAILY Qty: 90 RF: 3 levothyroxine 50 mcg tablet 50 mcg PO DAILY Qty: 90 RF: 3 Referrals / Follow Up: Satinder Cat MD [STAFF PHYSICIAN] - Within 2 Weeks (Obtain loop recorder to assess for A-Fib) Parris Espino MD [Primary Care Provider] - Within 2 Weeks Disposition Disposition (needs filled in before D/C Order can be placed): Home, Self Care Charges/Coding Visit Charges OBSV E&M: 55773 Observation care discharge Hospital Course Imaging Results Imaging Results: 04/12/21 09:00 Brain without Contrast [MRI] Routine
--- NOTE | 2021-04-12 14:23 | CASEMGMT ---
This RN CM to room and pt states no concerns with going home at discharge. Pt states is back to normal and states no further concerns/needs. SStaten RN CM
== END 2021-04-12 14:27 | disposition home or self-care (01) ==
LOC: ED 21:50 → PCU 04-11 01:53
PROVIDERS: Admitting Provider Hospitalist; Emergency Provider Emergency Medicine; PCP Internal Medicine; Visit Provider Internal Medicine
DX: G45.4 Transient global amnesia (principal); F32.A Depression, unspecified; F41.9 Anxiety disorder, unspecified; M16.12 Unilateral primary osteoarthritis, left hip; J45.909 Unspecified asthma, uncomplicated; E78.5 Hyperlipidemia, unspecified; K21.9 Gastro-esophageal reflux disease without esophagitis; G47.33 Obstructive sleep apnea (adult) (pediatric); E87.6 Hypokalemia; I10 Essential (primary) hypertension; R29.700 NIHSS score 0; E03.9 Hypothyroidism, unspecified; Z79.899 Other long term (current) drug therapy; Z79.82 Long term (current) use of aspirin; Z79.51 Long term (current) use of inhaled steroids; R47.89 Other speech disturbances
CPT/HCPCS: 36415; 70450; 70496; 70498; 70551; 71045; 80048; 80053; 80061; 81001; 82962; 83036; 83605; 84484; 85025; 85610; 85730; 87040; 87086; 87088; 93005; 93306; 96361; 96372; 96374; 99218; 99285; J7030; Q9967; A4216; G0378; J2405

== ENCOUNTER → 2021-12-27 | Outpatient (CLI) | payer OTHER, SELFPAY ==
[2021-12-27 10:07] LABS: Absolute Lymphocyte Count 1.48 X10^3/uL (0.83-4.51); Absolute Neutrophil Count 3.1 X10^3/uL (2.0-7.7); Basophil# 0.07 X10^3/uL; Basophil% 1.3 % (0-1); Eosinophil# 0.25 X10^3/uL; Eosinophils% 4.6 % (0-5); Hematocrit 41.5 % (37-47); Hemoglobin 13.4 g/dL (12.0-15.0); Lymphocyte # 1.48 X10^3/ul (0.83-4.51); Lymphocyte % 27.4 % (19-41); Mean Corp Hgb Conc 32.3 g/dL (32-36); Mean Corpuscular Hgb 28.6 pg (27.0-32.0); Mean Corpuscular Volume 88.5 fL (81-99); Mean Platelet Vol. 10.1 fl (6.2-12.0); Monocyte# 0.45 X10^3/uL; Monocyte% 8.3 % (0-10); NRBC Flagged by Analyzer 0 % (0-5); Neutrophil # 3.13 X10^3/uL (2.7-7.7); Platelet Count 283 K/mm3 (150-450); RBC Distribution Width CV 13.2 % (11.6-14.6); RBC Distribution Width SD 42.5 fl (35.1-43.9); Red Blood Count 4.69 M/mm3 (4.2-5.4); White Blood Count 5.4 K/mm3 (4.4-11.0)
[2021-12-27 10:57] LABS: AST(SGOT) 28 U/L (15-37); Alanine Aminotransfer ALT/SGPT 36 U/L (13-56); Albumin, Serum 3.7 g/dL (3.2-5.0); Alkaline Phosphatase 54 U/L (45-117); Anion Gap 6 (5-15); BUN 13 mg/dL (7-18); BUN/Creat Ratio 13.7 RATIO (10-20); Calcium,Total 9.2 mg/dL (8.5-10.1); Chloride 105 mmol/L (98-107); Cholesterol 157 mg/dL (200); Creatinine, Serum 0.95 mg/dL (0.55-1.02); EST Glomerular Filtration Rate 64 mL/min (>60); Est Glom Filt Rate - Afr Amer 78 mL/min (>60); Globulin 3.8 g/dL (2.2-4.2); Glucose 112 mg/dL (74-106); High Density Lipoprotein 51 mg/dL; Protein, Total 7.5 g/dL (6.4-8.2); Sodium Level 140 mmol/L (136-145); Thyroid Stim Hormone (TSH) 1.97 uIU/mL (0.358-3.74); Triglycerides 176 mg/dL; Very Low Density Lipoprotein 35 mg/dL (5-40)
== END | disposition home or self-care (01) ==
PROVIDERS: PCP Internal Medicine; Visit Provider Internal Medicine
DX: E78.5 Hyperlipidemia, unspecified (principal); E03.9 Hypothyroidism, unspecified
CPT/HCPCS: 36415; 80053; 80061; 84443; 85025

== ENCOUNTER → 2022-06-14 | Outpatient (CLI) | payer OTHER, SELFPAY ==
[2022-06-14 09:41] LABS: Absolute Lymphocyte Count 1.15 X10^3/uL (0.83-4.51); Absolute Neutrophil Count 3.9 X10^3/uL (2.0-7.7); Basophil# 0.07 X10^3/uL; Basophil% 1.2 % (0-1); Eosinophils% 3.5 % (0-5); Hematocrit 42.6 % (37-47); Hemoglobin 13.7 g/dL (12.0-15.0); Lymphocyte # 1.15 X10^3/ul (0.83-4.51); Mean Corp Hgb Conc 32.2 g/dL (32-36); Mean Corpuscular Volume 90.1 fL (81-99); Mean Platelet Vol. 10.5 fl (6.2-12.0); Monocyte# 0.38 X10^3/uL; Monocyte% 6.6 % (0-10); NRBC Flagged by Analyzer 0 % (0-5); Neutrophil # 3.93 X10^3/uL (2.7-7.7); Neutrophil % 68.5 % (47-70); Platelet Count 286 K/mm3 (150-450); RBC Distribution Width CV 12.9 % (11.6-14.6); RBC Distribution Width SD 42.8 fl (35.1-43.9); Red Blood Count 4.73 M/mm3 (4.2-5.4); White Blood Count 5.7 K/mm3 (4.4-11.0)
[2022-06-14 10:14] LABS: Vitamin B12 799 pg/mL (211-911); Vitamin D,25 Hydroxy 55.2 ng/mL
[2022-06-14 10:17] LABS: Hemoglobin A1c 6.1 % (3.8-5.6)
[2022-06-14 10:25] LABS: AST(SGOT) 23 U/L (15-37); Alanine Aminotransfer ALT/SGPT 42 U/L (13-56); Albumin, Serum 3.6 g/dL (3.2-5.0); Alkaline Phosphatase 51 U/L (45-117); Amylase 62 U/L (25-115); Anion Gap 7 (5-15); BUN 21 mg/dL (7-18); BUN/Creat Ratio 19.6 RATIO (10-20); Chloride 103 mmol/L (98-107); Cholesterol 148 mg/dL (200); Creatinine, Serum 1.07 mg/dL (0.55-1.02); EST Glomerular Filtration Rate 56 mL/min (>60); Est Glom Filt Rate - Afr Amer 68 mL/min (>60); Globulin 3.5 g/dL (2.2-4.2); Glucose 107 mg/dL (74-106); High Density Lipoprotein 51 mg/dL; Lipase 161 U/L (73-393); Potassium 4.3 mmol/L (3.5-5.1); Protein, Total 7.1 g/dL (6.4-8.2); Sodium Level 139 mmol/L (136-145); Triglycerides 137 mg/dL; Very Low Density Lipoprotein 27 mg/dL (5-40)
== END | disposition home or self-care (01) ==
LOC: LAB 08:36
PROVIDERS: PCP Internal Medicine; Referring Provider Nurse Practitioner Family; Visit Provider Nurse Practitioner Family
DX: Z00.00 Encounter for general adult medical examination without abnormal findings (principal); R53.83 Other fatigue; E78.2 Mixed hyperlipidemia; M54.9 Dorsalgia, unspecified; K21.9 Gastro-esophageal reflux disease without esophagitis
CPT/HCPCS: 36415; 80053; 80061; 82150; 82306; 82607; 82746; 83036; 83690; 84443; 85025

== ENCOUNTER → 2022-08-08 | Outpatient (CLI) | payer OTHER, SELFPAY ==
[2022-08-08 11:07] LABS: Microalbumin:Creatinine Ratio 5.8 mg/g CRE (<30 mg/g CRE)
== END | disposition home or self-care (01) ==
PROVIDERS: PCP Internal Medicine; Referring Provider Internal Medicine; Visit Provider Internal Medicine
DX: R73.03 Prediabetes (principal)
CPT/HCPCS: 82043; 82570

== ENCOUNTER → 2022-09-06 | Outpatient (CLI) | payer OTHER, SELFPAY | END | disposition home or self-care (01) | LOC: SL 08:16 | PROVIDERS: PCP Internal Medicine; Visit Provider Internal Medicine Critical Care Medicine | DX: Z46.89 Encounter for fitting and adjustment of other specified devices (principal) ==

== ENCOUNTER → 2023-01-04 | Outpatient (CLI) | payer OTHER, SELFPAY ==
[2023-01-04 10:17] LABS: Anion Gap 5 (5-15); BUN 22 mg/dL (7-18); BUN/Creat Ratio 23.5 RATIO (10-20); Calcium,Total 9.2 mg/dL (8.5-10.1); Chloride 106 mmol/L (98-107); Creatinine, Serum 0.94 mg/dL (0.55-1.02); EST Glomerular Filtration Rate 65 mL/min (>60); Est Glom Filt Rate - Afr Amer 79 mL/min (>60); Glucose 108 mg/dL (74-106); Sodium Level 140 mmol/L (136-145)
== END | disposition home or self-care (01) ==
LOC: LAB 09:09
PROVIDERS: PCP Internal Medicine; Referring Provider Internal Medicine; Visit Provider Internal Medicine
DX: R73.03 Prediabetes (principal)
CPT/HCPCS: 36415; 80048

== ENCOUNTER 2023-01-25 17:00 | Outpatient (RCR) | payer OTHER, SELFPAY ==
--- NOTE | 2022-12-28 08:22 | HP.PTEVAL ---
Patient's Visit Information Visit Information Visit Information: IRIS BENTON is a 57 year old F referred to Physical Therapy by Dr. Tim Rudolph DPM with a diagnosis of Posterior Tib Tendonitis. Date of Evaluation: 12/28/22 Physical Therapist: Christiana San DPT Visit Plan Frequency: 2x /Week Duration: 4 Weeks Plan: Aquatic Therapy- focus on core and LE strength/stabilization, proprioception and flexibility Subjective Subjective: Left ankle has been bothering her on/off about a year ago- starting about 2 week ago it was really painful. It happened to the other ankle and Dr. San had to redo the whole thing a few years ago. She has flat feet. She is working on her weight but it still bothers her. The pain is located down under the medial malleolus and across the mortise and even around the achilles- comes under the arch- does not radiate to the lateral aspect of the ankle. Worst: 01/22 Agg: working in the garden/around the house in bad shoes. Eases: ice, elevation, ibuprofen, medrol dose pack. Best: 05/24. Night it does swell. Sleep: side sleeper- will wake her up with throbbing. Describes the pain burning, pulling and sharp when she is weight bearing. When she is sitting its more achy. No N/T in the toes. 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 Stu- and is having new orthotics made by the director of acquisitions. She is more sedentary. She has had x-rays but no MRI at this time. They know its tendons that are the issues- but they won't do surgery until she loses weight. They are doing low carb to lose weight- with her . PMHx: prediabetic, Left Hip Replacement 2 years ago Meds: asprin, levothuroxin, lexipro, multivitamin, pulmicort, proair, crestor. Objective Objective: Posture: FH, RS- can correct with verbal cues but does not maintain- overweight Gait: slightly antalgic- decreased heel/toe pattern- significant pes planus HR/TR: pain with both more with HR SLS: weight shift but unable to SLS Girth: Figure 8: 51 cm Malls: 36 cm Palpation: tender along medial malleolus and mortise ROM: DF: 10 degrees, PF: 60 degrees, Inv: 30 degrees Ever: 20 degrees Knee/Hip: WFL Strength: Core: fair minus, Hip: 4/5 throughout, Knee: 4+/5, Ankle: 4/5 throughout Flex: Gastroc: mod, Marlys: mod Hamsting: mod Balance/Special Test Scores Lower Extremity Functional Score: 33 Goals Goal 1:: Patient will be I with HEP and progression Goal Time Frame: 4-6 Weeks Goal 2:: Patient will SLS for 15 sec without loss of balance Goal Time Frame: 4-6 Weeks Goal 3:: Patient will HR/TR without pain Goal Time Frame: 4-6 Weeks Goal 4:: Patient will report 80% improvement Goal Time Frame: 4-6 Weeks Rehabilitation Potential Physical Therapy Diagnosis: Patient presents with hypomobility- she has decreased LE and core strength/stabilization, proprioception, flex and muscular endurance leading to decreased balance and pain with ADL's. Rehabilitation Potential: Good Anticipated Interventions Patient/Client Instruction: Educate patient on: Benefits of Fitness Program Therapeutic Exercise to Include: Strength training, Endurance training, Balance training, Coordination, Agility training, Body mechanics, Postural training, Flexibilty training, Gait and locomotor training, Neuromotor development, In an aquatic setting, Dynamic Lumbar Stabilization and Scapular Strength/Stabilization For the Purpose of:: To improve muscle performance and motor function Text: Thank you for the opportunity to evaluate your patient. For Medicare and Medicare HMO plans, please review the plan of care and approve it. It will need to be FAXED BACK to us at [phone] for Medicare purposes. For Medicare only, by signing this I certify the plan of care. Please let me know if there are questions or concerns regarding this plan of care. Physician Signature: Date:
--- NOTE | 2023-01-25 17:13 | HP.PTDCSUM ---
Discharge Summary D/C summary: It has been my pleasure to treat IRIS BENTON referred by Dr. Tim Rudolph DPM, with the diagnosis of Posterior Tib Tendonitis left for a total of 8 visit(s). Discharge Date: Please see the following information for a summary of their discharge status. Subjective Subjective: Patient reports that she feels like she is better- she feels that she can walk around the office without the throbbing pain- now its just when she is standing the wrong way or turns the wrong way it bothers her. She feels that she is 80% better. She feels that she can continue independently due to her work schedule. She has some print out of the exercises and feels confident with the exercises. Pain LLE: Pain Intensity (Out of 10): 3 Overall Improvement % Improvement: 80 Objective Objective/Function: Posture: FH, RS- can correct with verbal cues but does not maintain- overweight Gait: slightly antalgic- decreased heel/toe pattern- significant pes planus HR/TR: pain with both more with HR SLS: weight shift but unable to SLS Girth: Figure 8: 49 cm Malls: 26 cm Palpation: not tender to touch ROM: DF: 15 degrees, PF: 60 degrees, Inv: 30 degrees Ever: 20 degrees Knee/Hip: WFL Strength: Core: fair minus, Hip: 4+/5 throughout, Knee: 4+/5, Ankle: 4+/5 throughout Flex: Gastroc: mod, Marlys: mod Hamsting: mod Goals Goal 1:: Patient will be I with HEP and progression Goal Progress: Goal Met Goal 2:: Patient will SLS for 15 sec without loss of balance Goal Progress: Progressing Goal 3:: Patient will HR/TR without pain Goal Progress: Progressing Goal 4:: Patient will report 80% improvement Goal Progress: Goal Met Plan Plan: 01/25/23: Discharge to I HEP- encouraged to continue HEP Aquatic Therapy- focus on core and LE strength/stabilization, proprioception and flexibility D/C Information d/c sentence: If there are questions or concerns regarding this patient's physical therapy, please feel free to call me at [phone]. Thank you for the referral of this patient. Sincerely, Christiana San, DPT Balance/Gait/Functional tests Balance/Special Test Scores Lower Extremity Functional Score: 48 Improvement % Improvement: 80
== END 2023-01-25 19:00 | disposition home or self-care (01) ==
LOC: PT 17:00
PROVIDERS: PCP Internal Medicine; Referring Provider Podiatrist Foot & Ankle Surgery; Visit Provider Podiatrist Foot & Ankle Surgery
DX: M76.822 Posterior tibial tendinitis, left leg (principal)
CPT/HCPCS: 97113; 97162; 97164

== ENCOUNTER → 2023-07-10 | Outpatient (CLI) | payer OTHER, SELFPAY ==
--- OUTSIDE RECORDS SUMMARY | 2023-07-10 09:12 | XMS RPT_ITS | CCD ---
Author Name Unknown Address [address] [place] [address] Organization [facility] Results Test Name Value Interpretation Reference Range Facil ity Progress note 05-20-2021 Note Date & Type Note Facility 05-20-2021 Note HNO ID: [id number] Author: Chantale Johansen APRN.[employer] SPECIALIST Service: ? Author Type: Nurse Practitioner Type: Progress Notes Filed: 05/20/2021 7:08 PM Note Text: CC: Patient presents with: Sore Throat: body aches, HALEY, exposure x this AM HPI: Tanisha Higuera is a 55 year old female who presents to the office with complaint of respiratory symptoms, cough, nonproductive and sore throat for the past day. Symptoms are worsening Associated symptoms includes headache. Denies fatigue, nausea, vomiting and diarrhea. Treatments tried include nothing so far. with no relief of symptoms. Sick contacts: unknown. History of asthma, frequent episodes of bronchitis, chronic bronchitis, bronchiectasis or COPD: No Smoker: No Seasonal/environmental allergies: No The ROS is otherwise negative. The patient's pmh, medications, allergies, and past visits are reviewed. PHYSICAL EXAM: BP 122/76 Pulse 72 Temp 36.9 ?C (98.5 ?F) Resp 18 Wt 112.7 kg (248 lb 6.4 oz) LMP 11/17/2006 SpO2 92% General appearance: alert, cooperative, pleasant, in no acute distress Head: Normocephalic Eyes: EOM's intact, conjunctiva pink and moist, no icterus, sclera white, non-injected Heart: Negative. RRR without obvious murmur, gallop, or rubs. No ectopy. Lungs: clear to auscultation, without rales or wheeze, good air exchange PAST MEDICAL HISTORY Diagnosis Date - Hypothyroidism - PMH - PAST MEDICAL HISTORY OF migraines - PMH - PAST MEDICAL HISTORY OF elevated lipids - Unspecified asthma(493.90) PAST SURGICAL HISTORY Procedure Laterality Date - BX BREAST PERC VACUUM/ROTN 09/28/10 Right - DANDC, DIAG AND/OR THERAPEUTIC 1994 Dilation AND curettage - EXCIS BREAST LES W XRAY MARKER 11/19/10 Right breast ALLERGIES Bactrim [Sulfamethoxazole-Trimethoprim] MEDICATIONS multivitamin (MULTIPLE VITAMINS) tablet Take by mouth. escitalopram (LEXAPRO) 10 mg ORAL tablet Take 10 mg by mouth once daily. levothyroxine (SYNTHROID) 50 mcg ORAL tablet Take 1 tablet by mouth once daily. albuterol 90 mcg/Actuation INHALATION Aero Inhale 2 Puffs as instructed four times daily as needed. FOR WHEEZING AND SHORTNESS OF BREATH. rosuvastatin (CRESTOR) 10 mg ORAL Tab Take one(1) tablet at bedtime. budesonide (PULMICORT TURBUHALER) 200 mcg/Inhalation INHALATION AePB 1 daily FAMILY HISTORY Problem Relation Age of Onset - Diabetes Father - Lipids Father - Ischemic Heart Disease Father - Lipids Mother - Hypertension Mother - Hypertension Brother - Breast Cancer Maternal Aunt Social History Tobacco Use - Smoking status: Never Smoker - Smokeless tobacco: Never Used Substance Use Topics - Alcohol use: Yes Comment: 1 glass of wine/week - Drug use: No ASSESSMENT/PLAN: 1. Suspected COVID-19 virus infection - ICD9: V01.79, ICD10: Z20.822 - COVID WITH FLUA+B, ROUTINE Potential red flag symptoms discussed with the patient. Reviewed appropriate action plan to take if red flag symptoms occur. Patient agreeable to treatment plan. Chantale Johansen APRN.[facility] Summary Purpose Family History No Family History Records FoundNo Family History Records Found Advance Directives No Advanced Directives Records FoundNo Advanced Directives Records Found Additional Source Comments INFORMATION SOURCE (unrecogn ized section and content) DATE CREATED AUTHOR AUTHOR'S VALARIE RAMIREZ 08/05/2021 [facility] FOR RECORDS PERTAINING TO PATIENTS WHO ARE OR HAVE BEEN ENROLLED IN A CHEMICAL DEPENDENCY/SUBSTANCEABUSE PROGRAM, SOME INFORMATION MAY BE OMITTED. This clinical summary was aggregated from multiple sources. Caution should be exercised in using it in the provision of clinical care. This summary normalizes information from multiple sources, and as a consequence, information in this document may materially change the coding, format and clinical context of patient data. In addition, data may be omitted in some cases. CLINICAL DECISIONS SHOULD BE BASED ON THE PRIMARY CLINICAL RECORDS. [employer] [facility]. provides no warranty or guarantee of the accuracy or completeness of information in this document.
--- NOTE | 2023-07-10 09:24 | RAD_ITS ---
STUDY: X-RAY - PELVIS REASON FOR EXAM: Female, 57 years old. Three-week history of pubic pain. TECHNIQUE: One view of the pelvis was obtained. COMPARISON: Comparison is made with prior study September 15, 2022. FINDINGS: There is a non-specific bowel gas pattern. Normal visualized soft tissue structures. Normal bilateral iliac wings, sacroiliac joints and visualized sacrum. Normal visualized bilateral superior and inferior pubic rami. Normal pubic symphysis. Normal ischial tuberosities. Normal visualized right femoral head. Normal right acetabulum. Normal right hip joint. The patient is status post left total hip replacement. RAD/Pelvis 1 or 2 Views IMPRESSION: Status post left total hip replacement. No acute abnormality is seen. Electronically Signed: Adeel Valdez MD at 11:19 EST ,
[2023-07-10 12:26] LABS: Absolute Lymphocyte Count 1.26 X10^3/uL (0.83-4.51); Absolute Neutrophil Count 3.5 X10^3/uL (2.0-7.7); Basophil# 0.06 X10^3/uL; Basophil% 1.1 % (0-1); Eosinophil# 0.24 X10^3/uL; Eosinophils% 4.4 % (0-5); Hematocrit 42.4 % (37-47); Hemoglobin 13.8 g/dL (12.0-15.0); Lymphocyte # 1.26 X10^3/ul (0.83-4.51); Lymphocyte % 22.9 % (19-41); Mean Corp Hgb Conc 32.5 g/dL (32-36); Mean Corpuscular Hgb 29.4 pg (27.0-32.0); Mean Corpuscular Volume 90.2 fL (81-99); Mean Platelet Vol. 10.6 fl (6.2-12.0); Monocyte# 0.39 X10^3/uL; Monocyte% 7.1 % (0-10); NRBC Flagged by Analyzer 0 % (0-5); Neutrophil # 3.54 X10^3/uL (2.7-7.7); Neutrophil % 64.3 % (47-70); Platelet Count 275 K/mm3 (150-450); RBC Distribution Width CV 13.2 % (11.6-14.6); RBC Distribution Width SD 43.9 fl (35.1-43.9); White Blood Count 5.5 K/mm3 (4.4-11.0)
[2023-07-10 13:28] LABS: ALB/GLOB Ratio 1.1 RATIO (0.9-2.4); AST(SGOT) 34 U/L (15-37); Alanine Aminotransfer ALT/SGPT 45 U/L (13-56); Albumin, Serum 3.9 g/dL (3.2-5.0); Alkaline Phosphatase 53 U/L (45-117); Anion Gap 5 (5-15); BUN 15 mg/dL (7-18); BUN/Creat Ratio 15.6 RATIO (10-20); Calcium,Total 9.4 mg/dL (8.5-10.1); Chloride 105 mmol/L (98-107); Cholesterol 172 mg/dL (200); Creatinine, Serum 0.96 mg/dL (0.55-1.02); EST Glomerular Filtration Rate 63 mL/min (>60); Est Glom Filt Rate - Afr Amer 76 mL/min (>60); Globulin 3.5 g/dL (2.2-4.2); Glucose 114 mg/dL (74-106); High Density Lipoprotein 51 mg/dL; Protein, Total 7.4 g/dL (6.4-8.2); Sodium Level 138 mmol/L (136-145); Thyroid Stim Hormone (TSH) 2.64 uIU/mL (0.358-3.74); Triglycerides 185 mg/dL; Very Low Density Lipoprotein 37 mg/dL (5-40)
== END | disposition home or self-care (01) ==
PROVIDERS: PCP Internal Medicine; Visit Provider Internal Medicine
DX: E78.5 Hyperlipidemia, unspecified (principal); E03.9 Hypothyroidism, unspecified; R10.2 Pelvic and perineal pain
CPT/HCPCS: 36415; 72170; 80053; 80061; 84443; 85025

== ENCOUNTER → 2023-07-14 | Outpatient (CLI) | payer OTHER, SELFPAY ==
--- NOTE | 2023-07-14 13:25 | BI_ITS ---
MAMMOGRAPHY - BILATERAL SCREENING REASON FOR EXAM: Female, 57 years old. Routine annual screening examination. PERTINENT HISTORY: Aunt with breast cancer. Remote right stereotactic breast biopsy. TECHNIQUE: Digital bilateral breast adrianne (3D mammographic acquisition) in the CC and MLO projections. 2-D mediolateral oblique (MLO) and craniocaudad (CC) views of both breasts were obtained. CAD: Full Field Digital Mammography with Computer Added Detection was performed. COMPARISON: Comparison is made with prior study dated December 10, 2020 and February 14, 2019. FINDINGS: Breast Composition: There are scattered areas of fibroglandular density. There are no dominant masses or suspicious calcifications. The previously seen 6.1 mm well-defined nodule in the upper lateral aspect of the right breast is not seen at this time. Stable small benign-appearing bilateral axillary lymph nodes. No other significant abnormalities are identified. BI/SCRN MAMM (CAD)W/ADRIANNE BILAT IMPRESSION: Stable bilateral screening mammogram. Yearly follow-up mammogram recommended. (A) ASSESSMENT CATEGORY: BIRADS Category 2: Benign. A letter regarding these results will be sent to the patient by the facility within 30 days. Approximately 10% of breast cancers are not detected by mammography. A normal mammogram should not delay biopsy of a clinically suspicious abnormality. [id number] Electronically Signed: Adeel Valdez MD at 14:21 EST ,
--- NOTE | 2023-07-14 13:25 | BD_ITS ---
STUDY: DUAL ENERGY X-RAY ABSORPTIOMETRY / DXA REASON FOR EXAM: Female, 57 years old. Post Menopausal TECHNIQUE: Bone Mineral Density (BMD) measurements of lumbar spine and right hip were obtained. COMPARISON: None. FINDINGS: Lumbar Spine (L1-L4): g/cm2 (1.193) / T-score (1.6) / Z-score (3.0) Findings are suggestive of normal bone density with a low fracture risk. Right Femur Total: g/cm2 (1.216) / T-score (2.2) / Z-score (3.2) Right Femoral Neck: g/cm2 (0.911) / T-score (0.6) / Z-score (1.8) BD/Dexa Bone Density Study IMPRESSION: The patient is considered normal as outlined below according to World Fabio Organization (WHO) criteria with a low fracture risk. Reference Information: The T-score is the number of standard deviations above or below the standard which is normal for young adults at their peak bone mineral density. The World Health Organization (WHO) interprets the T-scores as follows: Above -1 Normal bone density Between -1 and -2.5 Osteopenia Equal to / or below -2.5 Osteoporosis As a practical clinical guideline, osteopenia may be graded as follows: Mild -1 through -1.5 Moderate -1.6 through -2.0 Severe -2.1 through -2.4 The Z-score is the number of standard deviations above or below age-matched controls. A Z-score of less than -1.5 would be considered abnormal. References: 1. NIH Osteoporosis and Related Bone Diseases www osteo.org 2. International Society for Clinical Densitometry www iscd.org 3. National Osteoporosis Foundation www nof.org Electronically Signed: Adeel Valdez MD at 16:03 EST ,
--- OUTSIDE RECORDS SUMMARY | 2023-07-14 14:32 | XMS RPT_ITS | CCD ---
Author Name Unknown Address [address] [place] [address] Organization [facility] Results Test Name Value Interpretation Reference Range Facil ity Progress note 05-20-2021 Note Date & Type Note Facility 05-20-2021 Note HNO ID: [id number] Author: Chantale Johansen APRN.CUBING MACHINE TENDER Service: ? Author Type: Nurse Practitioner Type: [...] Patient agreeable to treatment plan. Chantale Johansen APRN.[facility] Summary Purpose Family History No Family History Records FoundNo Family History Records Found Advance Directives No Advanced Directives Records FoundNo Advanced Directives Records Found Additional Source Comments INFORMATION SOURCE (unrecogn ized section and content) DATE CREATED AUTHOR AUTHOR'S VALARIE RAMIREZ 08/05/2021 [facility] FOR RECORDS PERTAINING TO PATIENTS WHO [...] BE BASED ON THE PRIMARY CLINICAL RECORDS. [employer] [facility]. provides no warranty or guarantee of the accuracy or completeness of information in this document.
== END | disposition home or self-care (01) ==
LOC: OPBD 13:24
PROVIDERS: PCP Internal Medicine; Referring Provider Internal Medicine; Visit Provider Internal Medicine
DX: Z13.820 Encounter for screening for osteoporosis (principal); Z78.0 Asymptomatic menopausal state; Z12.31 Encounter for screening mammogram for malignant neoplasm of breast
CPT/HCPCS: 77063; 77067; 77080

== ENCOUNTER → 2023-12-22 | Outpatient (CLI) | payer OTHER, SELFPAY ==
--- NOTE | 2023-12-22 13:51 | VDLE_ITS ---
Reason For Study: Left leg pain Procedure LEFT This is a venous duplex using B-mode, color GSV is normal. flow and spectral Doppler. CFV is compressible, spontaneous, phasic, Exam performed in department. competent, and demonstrates normal A preliminary report was called and/or faxed augmentation. to Phu CURRAN. FV is compressible, spontaneous, phasic, competent and demonstrates normal augmentation. POP V is compressible, spontaneous, phasic, competent and demonstrates normal augmentation. T/P Trunk is compressible. PTV is compressible. LT PerV is compressible. VL/Venous Duplex US, Unilateral Interpretation Summary Deep veins of the left lower extremity are patent and compressible segmentally. There is no evidence of left lower extremity deep vein thrombosis. The left great saphenous vein serena ears patent and compressible segmentally. Ordering Physician: Jenifer Bay Referring Physician: Parris Espino Performed By: Freida Bell RVT
== END | disposition home or self-care (01) ==
LOC: CVS 13:48
PROVIDERS: PCP Internal Medicine; Referring Provider Nurse Practitioner Gerontology; Visit Provider Nurse Practitioner Gerontology
DX: M79.662 Pain in left lower leg (principal)
CPT/HCPCS: 93971

== ENCOUNTER → 2024-03-13 | Outpatient (CLI) | payer OTHER, SELFPAY ==
--- OUTSIDE RECORDS SUMMARY | 2024-03-13 08:51 | XMS RPT_ITS | CCD ---
Author Organization [employer] MATERIALS MANAGEMENT CLERK [facility] Results Test Name Value Interpretation Reference Range Facil ity CNOVon 05-20-2021 CNOV Office Visit (UCWSTR ) TANISHA BENTON ([id number]) 1965 F Date Time Provider Department 05/20/21 6:45 PM ELIEZER LEIGH [facility] During your visit today, we recorded the following information about you: Temperature Pulse Respiration Blood pressure 98.5 degrees 72/minute 18/minute 122/76 Weight 112.7 kg Eliezer Leigh APRN.CNP 05/20/2021 7:08 PM Signed CC: Patient presents with: Sore Throat: body aches, HALEY, exposure x this AM HPI: Tanisha Benton is a 55 year old female who [...] 09/28/10 Right - DANDC, DIAG AND/OR THERAPEUTIC 1995 Dilation AND curettage - EXCIS BREAST LES W XRAY MARKER 11/19/10 Right breast ALLERGIES Bactrim [Sulfamethoxazole-Trim ethoprim] MEDICATIONS multivitamin (MULTIPLE VITAMINS) tablet Take by [...] symptoms occur. Patient agreeable to treatment plan. Eliezer Leigh APRN.TERMINAL GAUGER Referring Provider: SELF [200] Allergies As of Date: 05/20/2021 Noted Allergy Reaction BACTRIM (SULFAMETHOXAZOLE-TRIM ETH*09/25/2006 4 - Hives Date Reviewed: 05/20/2021 Reviewed by: Eliezer Leigh APRN.TERMINAL GAUGER - Fully Assessed Reason for Visit: Sore Throat [200] Cmt: body aches, HALEY, exposure x this AM Primary Visit Diagnosis:Suspected COVID-19 virus infection [Z20.822] Order(s):COVID WITH FLUA+B, ROUTINE [SQCOVFLU] Order #: [id number] FUTURE Prescriptions as of 05/20/2021 - multivitamin (MULTIPLE VITAMINS) tablet Take by mouth. - escitalopram (LEXAPRO) 10 mg ORAL tablet Take 10 mg by mouth once daily. - levothyroxine (SYNTHROID) 50 mcg ORAL tablet Take 1 tablet by mouth once daily. - albuterol 90 mcg/Actuation INHALATION Aero Inhale 2 Puffs as instructed four times daily as needed. FOR WHEEZING AND SHORTNESS OF BREATH. - rosuvastatin (CRESTOR) 10 mg ORAL Tab Take one(1) tablet at bedtime. 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 Letter Text Encounter Status:Closed by ELIEZER LEIGH on 05/20/21 Normal [facility] COVID w FLU A+B Routon 05-20 Influenza A PCR Negative Normal [facility] Comment on above: Performed By: #### COVFLU #### [facility] [employer] [address] [place], [place] [address] Influenza B PCR Negative Normal [facility] Comment on above: Performed By: #### COVFLU #### [place] [employer] [address] [place], [place] [address] SARS-CoV-2 (COVID-19) RNA ASTRID+probe Ql (Unsp spec) UPPER RESPIRATORY TRACT SWAB Normal [facility] Comment on above: Performed By: #### COVFLU #### [place] [id number] SARS-CoV-2 (COVID-19) RNA ASTRID+probe Ql (Unsp spec) Negative for COVID19 (SARS CoV2) by RT-PCR or equivalent method. Normal Negative for COVID19 (SARS CoV2) by RT-PCR or equivalent method. [facility] Comment on above: Result Comment: This test was developed and its performance characteristics determined by [facility]'s [facility] [place]. This test has been authorized by FDA under an Emergency Use Authorization (EUA). This test has been validated in accordance with the FDA's Guidance Document Policy for Diagnostics Testing in Laboratories Certified to Perform High Complexity Testing under CLIA prior to Emergency use Authorization for Coronavirus Disease 2019 during the Public Health Emergency issued on July 13, 2019. Test performed by [facility], [facility] and [facility] [place], [address] [place] [address]. Performed By: #### C OVFLU #### [place] [id number] Final Surgical Pathology Rep [facility] 01-01-2021 Final Surgical Pathology Report . Pathology Reports Accession: Collected Date/Time: Received Date/Time: Pathologist: [id number] 12/30/2020 10:25 EDT 12/31/2020 10:25 EDT GAURANG CARRANZA MD Final Surgical Pathology Report DIAGNOSIS: ENDOMETRIUM, BIOPSY - FRAGMENTS OF PROLIFERATIVE ENDOMETRIUM AND MUCOUS. NO EVIDENCE OF MALIGNANCY. COMMENT: [facility] - [id number] CLINICAL INFORMATION: ABNORMAL BLEEDING Procedure: ENDOMETRIAL BIOPSY Preoperative diagnosis: ABNORMAL BLEEDING Postoperative diagnosis: SAME SPECIMEN: A ENDOMETRIUM GROSS DESCRIPTION: A. Received in formalin, labeled with the patients name, Case #[id number], and endometrial biopsy are multiple minute payton tissue fragments admixed with a mucinous material aggregating to 1.5 x 1 x 0.2 cm. TS -1. Dictated by ROCÍO PASTOR MICROSCOPIC DESCRIPTION: Slides reviewed. Electronically Signed by Pathology Report verified by [facility] Electronically signed by GAURANG CARRANZA Sign out Date: 01/01/2021 14:55 Performing Lab: [facility], [address] [place] [address] [facility] ([place]) Comment on above: Performed By: #### SPFR #### [facility] [address] [place], [place] [id number] PELVIS NON-OB W/TRANSVAGI NALon 12-29-2020 PELVIS NON-OB W/TRANSVAGINAL ORIGINAL EXAMINATION: TRANSVAGINAL AND TRANSABDOMINAL PELVIC ULTRASOUND 12/29/2020 COMPARISON: None HISTORY: ORDERING SYSTEM PROVIDED HISTORY: Reason for Exam: bleeding on anticoagulation. 4 days of vaginal bleeding after hip surgery. FINDINGS: Measurements: Uterus: 10.2 x 5.5 x 2.9 cm Endometrial stripe: 5 mm Right Ovary: Not demonstrated Left Ovary: Not demonstrated Ultrasound Findings: Uterus: Uterus demonstrates heterogeneous myometrial echotexture. Nabothian cysts are noted. Endometrial stripe: Endometrial stripe is within normal limits. Right Ovary: Obscured Left Ovary: Obscured There are no adnexal masses. Free Fluid: No free fluid. IMPRESSION: Normal endometrial stripe thickness. No myometrial mass. Nonvisualized bilateral ovaries. I have personally reviewed and agree with the resident's interpretation. Interpreted by: Rocío Hollis Preliminary Report By: Gatito Rowe Electronically signed By Rocío Hollis Dictated Date: 12/29/2020 3:01:54 PM Prelim Date: 12/29/2020 4:03:44 PM Sign Date: 12/29/2020 4:03:44 PM Ordering Provider: MAURICIO JASSO [facility] ([place]) Progress note 05-20-2021 Note Date & Type Note Facility 05-20-2021 Note HNO ID: [id number] Author: Eliezer Leigh APRN.TERMINAL GAUGER Service: ? Author Type: Nurse Practitioner Type: Progress Notes Filed: 05/20/2021 7:08 PM Note Text: CC: Patient presents with: Sore Throat: body aches, HALEY, exposure x this AM HPI: Tanisha Benton is a 55 year old female who [...] 09/28/10 Right - DANDC, DIAG AND/OR THERAPEUTIC 1995 Dilation AND curettage - EXCIS BREAST LES [...] symptoms occur. Patient agreeable to treatment plan. Eliezer Leigh APRN.[facility] Summary Purpose Family History No Family History Records FoundNo Family History Records Found Advance Directives No Advanced Directives Records FoundNo Advanced Directives Records Found Additional Source Comments INFORMATION SOURCE (unrecogn ized section and content) DATE CREATED AUTHOR 01/10/2021 [facility] ([place]) DATE CREATED AUTHOR AUTHOR'S ORGANIZ ATION 08/05/2021 [facility] FOR RECORDS PERTAINING TO PATIENTS WHO ARE [...] BE BASED ON THE PRIMARY CLINICAL RECORDS. [employer] [facility]. provides no warranty or guarantee of the accuracy or completeness of information in this document.
[2024-03-13 12:39] LABS: Anion Gap 4 (5-15); BUN 12 mg/dL (7-18); BUN/Creat Ratio 13.3 RATIO (10-20); Calcium,Total 9.5 mg/dL (8.5-10.1); Chloride 107 mmol/L (98-107); EST Glomerular Filtration Rate 68 mL/min (>60); Est Glom Filt Rate - Afr Amer 82 mL/min (>60); Glucose 122 mg/dL (74-106); Potassium 4.2 mmol/L (3.5-5.1); Sodium Level 139 mmol/L (136-145)
[2024-03-13 12:57] LABS: Hemoglobin A1c 6.1 % (3.8-5.6)
== END | disposition home or self-care (01) ==
LOC: BIMLAB 08:29
PROVIDERS: PCP Internal Medicine; Referring Provider Internal Medicine; Visit Provider Internal Medicine
DX: E03.9 Hypothyroidism, unspecified (principal); R73.03 Prediabetes
CPT/HCPCS: 36415; 80048; 83036; 84443

== ENCOUNTER → 2024-06-21 | Outpatient (CLI) | payer OTHER, SELFPAY ==
[2024-06-21 12:29] LABS: Absolute Lymphocyte Count 1.41 X10^3/uL (0.83-4.51); Absolute Neutrophil Count 3.4 X10^3/uL (2.0-7.7); Basophil# 0.06 X10^3/uL; Basophil% 1.1 % (0-1); Eosinophil# 0.26 X10^3/uL; Eosinophils% 4.7 % (0-5); Hematocrit 42.1 % (37-47); Hemoglobin 13.8 g/dL (12.0-15.0); Lymphocyte # 1.41 X10^3/ul (0.83-4.51); Lymphocyte % 25.5 % (19-41); Mean Corp Hgb Conc 32.8 g/dL (32-36); Mean Corpuscular Hgb 29.8 pg (27.0-32.0); Mean Corpuscular Volume 90.9 fL (81-99); Mean Platelet Vol. 10.6 fl (6.2-12.0); Monocyte# 0.44 X10^3/uL; NRBC Flagged by Analyzer 0 % (0-5); Neutrophil # 3.35 X10^3/uL (2.7-7.7); Neutrophil % 60.5 % (47-70); Platelet Count 309 K/mm3 (150-450); RBC Distribution Width CV 12.8 % (11.6-14.6); RBC Distribution Width SD 42.1 fl (35.1-43.9); Red Blood Count 4.63 M/mm3 (4.2-5.4); White Blood Count 5.5 K/mm3 (4.4-11.0)
[2024-06-21 13:05] LABS: ALB/GLOB Ratio 0.9 RATIO (0.9-2.4); AST(SGOT) 55 U/L (15-37); Alanine Aminotransfer ALT/SGPT 61 U/L (13-56); Albumin, Serum 3.7 g/dL (3.2-5.0); Alkaline Phosphatase 55 U/L (45-117); Anion Gap 8 (5-15); BUN 17 mg/dL (7-18); BUN/Creat Ratio 20.8 RATIO (10-20); Calcium,Total 9.8 mg/dL (8.5-10.1); Chloride 104 mmol/L (98-107); Cholesterol 151 mg/dL (200); Creatinine, Serum 0.82 mg/dL (0.55-1.02); EST Glomerular Filtration Rate 76 mL/min (>60); Est Glom Filt Rate - Afr Amer 91 mL/min (>60); Globulin 3.9 g/dL (2.2-4.2); Glucose 98 mg/dL (74-106); High Density Lipoprotein 53 mg/dL; Potassium 4.4 mmol/L (3.5-5.1); Protein, Total 7.6 g/dL (6.4-8.2); Sodium Level 139 mmol/L (136-145); Triglycerides 170 mg/dL; Very Low Density Lipoprotein 34 mg/dL (5-40)
== END | disposition home or self-care (01) ==
LOC: BIMLAB 09:41
PROVIDERS: PCP Internal Medicine; Referring Provider Internal Medicine; Visit Provider Internal Medicine
DX: E03.9 Hypothyroidism, unspecified (principal); E78.2 Mixed hyperlipidemia
CPT/HCPCS: 36415; 80053; 80061; 84443; 85025

== ENCOUNTER → 2024-07-15 | Outpatient (CLI) | payer OTHER, SELFPAY ==
--- NOTE | 2024-07-15 08:39 | BI_ITS ---
PROCEDURE: SCRN MAMM (CAD)W/ADRIANNE BILAT REASON FOR EXAM: F, Age 58 y/o, aunt with breast cancer. Daughter tested positive for BRCA gene. TECHNIQUE: Bilateral screening digital breast tomosynthesis with 2D and 3D images. Computer aided detection. COMPARISON: Prior exam(s) dating back to July 14, 2023.. FINDINGS: There are scattered areas of fibroglandular density. Stable small benign- appearing axillary lymph nodes. Stable examination No suspicious masses, areas of developing architectural distortion, or suspicious calcifications. BI/SCRN MAMM (CAD)W/ADRIANNE BILAT IMPRESSION: BI-RADS 2: BENIGN. RECOMMEND ANNUAL MAMMOGRAPHIC SCREENING. Follow-up code: Routine Follow-up The patient will be notified of the results by letter. Reading Location: [id number]
== END | disposition home or self-care (01) ==
PROVIDERS: PCP Internal Medicine; Referring Provider Internal Medicine; Visit Provider Internal Medicine
DX: Z12.31 Encounter for screening mammogram for malignant neoplasm of breast (principal)
CPT/HCPCS: 77063; 77067

== ENCOUNTER → 2024-08-06 | Outpatient (CLI) | payer OTHER, SELFPAY ==
[2024-08-06 13:20] LABS: Absolute Lymphocyte Count 1.67 X10^3/uL (0.83-4.51); Absolute Neutrophil Count 3.7 X10^3/uL (2.0-7.7); Basophil# 0.07 X10^3/uL; Basophil% 1.2 % (0-1); Eosinophil# 0.23 X10^3/uL; Eosinophils% 3.8 % (0-5); Hematocrit 42.5 % (37-47); Hemoglobin 14.1 g/dL (12.0-15.0); Lymphocyte # 1.67 X10^3/ul (0.83-4.51); Lymphocyte % 27.5 % (19-41); Mean Corp Hgb Conc 33.2 g/dL (32-36); Mean Corpuscular Hgb 29.8 pg (27.0-32.0); Mean Corpuscular Volume 89.9 fL (81-99); Monocyte# 0.36 X10^3/uL; Monocyte% 5.9 % (0-10); NRBC Flagged by Analyzer 0 % (0-5); Neutrophil # 3.73 X10^3/uL (2.7-7.7); Neutrophil % 61.3 % (47-70); Platelet Count 306 K/mm3 (150-450); RBC Distribution Width CV 12.8 % (11.6-14.6); RBC Distribution Width SD 42.2 fl (35.1-43.9); Red Blood Count 4.73 M/mm3 (4.2-5.4); White Blood Count 6.1 K/mm3 (4.4-11.0)
[2024-08-06 14:45] LABS: Anion Gap 14 (5-15); BUN 20 mg/dL (4-19); BUN/Creat Ratio 21.5 RATIO (10-20); Carbon Dioxide 22.6 mmol/L (21.0-32.0); Chloride 102 mmol/L (98-108); Creatinine, Serum 0.92 mg/dL (0.70-1.20); EST Glomerular Filtration Rate 71 (>60); Glucose 120 mg/dL (70-99); Pro- Brain NATRIURETIC PEPTIDE 67 pg/mL (<=900); Sodium Level 138 mmol/L (133-145)
== END | disposition home or self-care (01) ==
PROVIDERS: PCP Internal Medicine; Referring Provider Internal Medicine Cardiovascular Disease; Visit Provider Internal Medicine Cardiovascular Disease
DX: J45.30 Mild persistent asthma, uncomplicated (principal); R73.03 Prediabetes; R53.83 Other fatigue; E03.9 Hypothyroidism, unspecified; G47.33 Obstructive sleep apnea (adult) (pediatric)
CPT/HCPCS: 36415; 80048; 83880; 84443; 85025

== ENCOUNTER → 2024-08-07 | Outpatient (CLI) | payer OTHER, SELFPAY ==
--- NOTE | 2024-08-07 09:56 | ECHOD_ITS ---
Reason For Study Reason For Study: CASTRO Procedure This was a 2D Doppler, Color Flow transthoracic echocardiogram. Myocardial strain analysis was performed in this exam to aid in the assessment of cardiac function. Exam performed in department. Left Ventricle Normal LV size. The estimated ejection fraction is 72 %. Stage 1 diastolic dysfunction. No regional wall motion abnormalities noted. Right Ventricle Normal RV size. Normal systolic function. Atria Normal left atrium. Normal right atrium. Mitral Valve Normal mitral valve. Tricuspid Valve Normal tricuspid valve. Mild (1+) tricuspid valve insufficiency. Pulmonary artery systolic pressure is 27 mmHg. Aortic Valve Normal aortic valve. Trisinus/trileaflet aortic valve. Pulmonic Valve Normal pulmonic valve. Great Vessels Normal aortic root. The pulmonary artery is normal size. Inferior vena cava collapse with respiration. Pericardium/Pleural No pericardial effusion. MMode/2D Measurements & Calculations LVIDd: 4.8 cm IVSd: 0.96 cm Ao root diam: 2.9 cm LVIDs: 2.2 cm LVPWd: 0.99 cm RVDd: 3.1 cm FS: 53.0 % LAV(MOD-bp): 51.9 ml LVAd ap4: 27.4 cm2 LVAd ap2: 25.8 cm2 LAV(MOD-bp) Indexed: 23.1 ml/m2 LVLd ap4: 8.1 cm LVLd ap2: 7.9 cm LAV(MOD-sp2): 35.7 ml EDV(MOD-sp4): 78.7 ml EDV(MOD-sp2): 70.6 ml LAV(MOD-sp4): 65.0 ml EDV(sp4-el): 78.7 ml EDV(sp2-el): 71.7 ml LVAs ap4: 12.8 cm2 LVAs ap2: 12.2 cm2 LVLs ap4: 6.4 cm LVLs ap2: 6.7 cm ESV(MOD-sp4): 23.4 ml ESV(MOD-sp2): 18.6 ml ESV(sp4-el): 21.5 ml ESV(sp2-el): 19.1 ml EF(MOD-sp4): 70.3 % EF(MOD-sp2): 73.6 % EF(sp4-el): 72.7 % SV(MOD-sp4): 55.3 ml SV(MOD-sp2): 51.9 ml SV(sp4-el): 57.2 ml SI(MOD-sp4): 24.6 ml/m2 SI(MOD-sp2): 23.1 ml/m2 LA A4 area: 20.1 cm2 LA dimension(2D): 3.6 cm RA A4 area: 8.3 cm2 TAPSE: 1.9 cm Time Measurements MV dec time: 0.24 sec Doppler Measurements & Calculations MV E max edison: 70.7 cm/sec Lat Peak E' Edison: 8.8 cm/sec Med Peak E' Edison: 11.3 cm/sec MV A max edison: 79.2 cm/sec E/E' lat: 8.0 E/E' med: 6.3 MV E/A: 0.89 Ao V2 max: 189.6 cm/sec LV V1 max: 158.7 cm/sec MV dec slope: 297.7 cm/sec2 Ao max P.4 mmHg LV V1 max P.1 mmHg Ao V2 mean: 128.7 cm/sec LV V1 mean P.3 mmHg Ao mean P.5 mmHg LV V1 mean: 107.0 cm/sec Ao V2 VTI: 42.6 cm LV V1 VTI: 36.6 cm AV (velocity ratio): 0.86 PA V2 max: 139.7 cm/sec TR max edison: 246.0 cm/sec TR max P.2 mmHg ECHO/Echo Complete Interpretation Summary Normal LV size. The estimated ejection fraction is 72 %. Stage 1 diastolic dysfunction. The global longitudinal strain is normal. The global longitudinal strain = -23 % (normal). Structurally normal valves. Ordering Physician: Satinder Cat Referring Physician: Parris Espino Performed By: Ana Del Rosario HEATHER
== END | disposition home or self-care (01) ==
LOC: CVS 09:56
PROVIDERS: PCP Internal Medicine; Referring Provider Internal Medicine Cardiovascular Disease; Visit Provider Internal Medicine Cardiovascular Disease
DX: R06.02 Shortness of breath (principal)
CPT/HCPCS: 93306

== ENCOUNTER → 2024-08-09 | Outpatient (CLI) | payer OTHER, SELFPAY ==
--- NOTE | 2024-08-09 11:15 | RAD_ITS ---
PROCEDURE: CHEST PA AND LATERAL 08/09/2024 REASON FOR EXAM: SOB TECHNIQUE: Frontal and lateral views of the chest. COMPARISON: 04/10/2021 FINDINGS: The lungs are clear. No pleural effusion or pneumothorax. The cardiomediastinal silhouette is unremarkable. No acute osseous or soft tissue abnormality. RAD/Chest PA and Lateral IMPRESSION: No acute cardiopulmonary process. Reading Location: [facility]
== END | disposition home or self-care (01) ==
LOC: RAD 11:13
PROVIDERS: PCP Internal Medicine; Referring Provider Internal Medicine Cardiovascular Disease; Visit Provider Internal Medicine Cardiovascular Disease
DX: J45.30 Mild persistent asthma, uncomplicated (principal); R53.83 Other fatigue
CPT/HCPCS: 71046

== ENCOUNTER 2024-08-19 08:33 | Day surgery (SDC) | payer OTHER, SELFPAY ==
[2024-08-16 11:45] VITALS: BMI 50.5
--- NOTE | 2024-08-19 10:25 | CL.D_ITS ---
Patient Name: IRIS BENTON Study Date: 08/19/2024 Performing: Satinder Cat MD Ht: 63 inches 160.02 cm : 1965 Wt: 284.99 lbs 129.27 kg Age: 59 Gender: female BSA: 2.25 PROCEDURE(S) PERFORMED DC02-(98696)LHC/COR DC11-(60302)AO ROOT ANGIO WITH HEART CATH CLINICAL PROFILE AND INDICATIONS Indications: Suspected CAD Heart Failure: None Stress/Imaging Stress/Image Study Performed: No CONCLUSIONS Normal coronary arteries Normal LV size, wall motion,and systolic function RECOMMENDATIONS Risk factor modification with weight loss. DESCRIPTION OF PROCEDURE The patient arrived to the procedure lab. The risks and benefits of the procedure as well as a full description of our services here and current unavailability of surgical backup were fully explained to the patient and/or their significant other prior to the catheterization. The Timeout was completed, verifying the correct patient and procedure. The patient's procedural site was prepped and draped in the usual fashion. Local anesthetic was given subcutaneously to right radial region with Lidocaine 2%. Using a modified Seldinger technique, arterial access was obtained via the right radial artery, a 6Fr sheath was inserted. Left Coronary Artery selective angiography was performed in multiple views using a 5 Fr. 4.0 [place] catheter. Right Coronary Artery selective angiography was then performed in multiple views using a 5 Fr. JR 5 catheter. Ascending (root) aorta selective angiography was then performed with 5Fr pigtail pulled and a TR Band was applied for hemostasis. 13cc of air CORONARY ANGIOGRAPHY DOMINANCE: Right Dominant LEFT HEART ASSESSMENT Left Ventricular Ejection Fraction: by LV Gram 70 % Normal LV wall motion Normal Left Ventricular systolic function Normal Left Ventricular systolic function LEFT MAIN: Angiographically normal LEFT ANTERIOR DESCENDING ARTERY: Angiographically normal CIRCUMFLEX ARTERY: Angiographically normal RIGHT CORONARY ARTERY: Angiographically normal COMPLICATIONS No Complications PROCEDURE MEDICATIONS Versed 1 mg IV Fentanyl 50 mcg IV Versed 1 mg IV Versed 1 mg IV Fentanyl 25 mcg IV Versed 1 mg IV Oxygen: 2 L/min via nasal cannula Baby Aspirin (81mg) 1 Tabs PO @ 08/19/2024 09:11:17 Heparin given IA 08/19/2024 09:43:03 Verapamil 2.5mg, Ntg 200mcgs, 2000 units of Heparin given IA 08/19/2024 09:43:03 SUMMARY OF HEMODYNAMIC DATA Time AIR REST ECG 08:57:43 ECG 09:34:38 Art 116/72 (89) 09:45:52 AO 131/75 (99) SA 09:49:37 Signed By Satinder Cat MD On 08/19/2024 10:24:38 Satinder Cat MD
== END 2024-08-19 12:25 | disposition home or self-care (01) ==
PROVIDERS: PCP Internal Medicine; Referring Provider Internal Medicine Cardiovascular Disease; Visit Provider Internal Medicine Cardiovascular Disease
DX: I25.10 Atherosclerotic heart disease of native coronary artery without angina pectoris (principal); Z68.43 Body mass index [BMI] 50.0-59.9, adult; E78.5 Hyperlipidemia, unspecified; G47.33 Obstructive sleep apnea (adult) (pediatric); E66.9 Obesity, unspecified; Z79.51 Long term (current) use of inhaled steroids; Z79.899 Other long term (current) drug therapy; Z79.84 Long term (current) use of oral hypoglycemic drugs
CPT/HCPCS: 93454; 99152; 99153; C1894; Q9967; C1769

== ENCOUNTER → 2025-01-15 | Outpatient (CLI) | payer OTHER, SELFPAY ==
[2025-01-15 09:00] LABS: Hematocrit 41.6 % (37-47); Hemoglobin 13.9 g/dL (12.0-15.0); Immature Granulocytes Count 0.020 X10^3/uL (0.0-0.0); Mean Corp Hgb Conc 33.4 g/dL (32-36); Mean Corpuscular Volume 88.7 fL (81-99); Mean Platelet Vol. 10.0 fl (6.2-12.0); NRBC Flagged by Analyzer 0 % (0-5); Platelet Count 287 K/mm3 (150-450); RBC Distribution Width CV 13.2 % (11.6-14.6); RBC Distribution Width SD 42.6 fl (35.1-43.9); Red Blood Count 4.69 M/mm3 (4.2-5.4); White Blood Count 6.4 K/mm3 (4.4-11.0)
[2025-01-15 09:49] LABS: AST(SGOT) 29 U/L (<=31); Alanine Aminotransfer ALT/SGPT 30 U/L (<=34); Albumin, Serum 4.4 g/dL (3.4-4.8); Alkaline Phosphatase 56 U/L (35-104); Anion Gap 11 (5-15); BUN 17 mg/dL (4-19); BUN/Creat Ratio 15.6 RATIO (10-20); Calcium,Total 9.7 mg/dL (7.6-11.0); Carbon Dioxide 25.7 mmol/L (21.0-32.0); Chloride 103 mmol/L (98-108); Globulin 3.0 g/dL (2.2-4.2); Glucose 100 mg/dL (70-99); Potassium 4.8 mmol/L (3.3-5.1)
== END | disposition home or self-care (01) ==
LOC: LAB 08:37
PROVIDERS: PCP Internal Medicine; Referring Provider Internal Medicine; Visit Provider Internal Medicine
DX: E03.9 Hypothyroidism, unspecified (principal); E78.2 Mixed hyperlipidemia
CPT/HCPCS: 36415; 80053; 84443; 85025

== ENCOUNTER → 2025-04-15 | Outpatient (CLI) | payer OTHER, SELFPAY | END | disposition home or self-care (01) | LOC: SL 16:35 | PROVIDERS: PCP Internal Medicine; Visit Provider Nurse Practitioner Acute Care | DX: Z00.00 Encounter for general adult medical examination without abnormal findings (principal) ==